=== PATIENT | female | born 1940 | race Caucasian/White ===

== ENCOUNTER 2023-07-31 06:32 | Inpatient (IN) ==
--- NOTE | 2023-07-31 07:01 | Emergency Department Note ---
Impression & Plan CHF (congestive heart failure), Abdominal pain, Nausea & vomiting, Elevated troponin ED Provider Note ED Provider Note NAME: CINDY HARTLEY AGE:83 SEX: Female : 1940 ARRIVES VIA: EMS INFORMANT: Patient ED PROVIDER(s): Jerri Corcoran DO CHIEF COMPLAINT: Nausea and vomiting, abdominal pain HPI: This is an 83-year-old female who presents emergency department via EMS due to concern for nausea vomiting and abdominal pain. Patient states symptoms began early this morning. Patient states she just had 1 episode of vomiting, denies noting any blood. She states she is still persistently nauseous. She also states she has had some mild accompanying abdominal pain and does feel bloated. Patient denies any prior significant GI history, and has had a prior abdominal hysterectomy. She denies fevers but states she is chronically cold. She denies any recent change in medication or diet. No difficulty urinating. She denies any accompanying URI symptoms. PAST MEDICAL HISTORY:See Below PAST SURGICAL HISTORY:See Below FAMILY HISTORY:See Below SOCIAL HISTORY:See Below HOME MEDICATIONS:See Below ALLERGIES:See Below VITALS:See Below PHYSICAL EXAMINATION: GENERAL: alert, unwell appearing, well nourished, no distress, non-toxic EYE EXAM: normal conjunctiva, PERRL and EOM's grossly intact OROPHARYNX: no exudate, no erythema, lips, buccal mucosa, and tongue normal and mucous membranes are dry NECK: supple, no nuchal rigidity, no adenopathy, non-tender LUNGS: Clear to auscultation. Normal chest wall mechanics, no w/r/r HEART: no murmurs, S1 normal and S2 normal ABDOMEN: abdomen soft, non-tender, normo-active bowel sounds, no masses, no rebound or guarding. SKIN: no rashes, petechiae, orbruising UPPER EXTREMITIES: upper extremities are grossly normal. FROM, nml pulses b/l. LOWER EXTREMITIES: No pitting edema. FROM, nml pulses b/l. NEURO EXAM: Normal sensorium, cranial nerves II-XII grossly intact, normal speech, no facial droop,nogross weakness of arms, no gross weakness of legs. Gross sensation intact. No ataxia. Vital Signs: reviewed and remarkable Differential Diagnosis: Viral syndrome, perforation, GI bleed, ACS, dissection, colitis, bowel obstruction, pneumonia, medication ADR, dehydration, JOSELITO, as well as others were considered MEDICAL DECISION MAKING: This is an 83-year-old female who presents emergency room due to nausea vomiting and abdominal pain. Patient was afebrile vital signs stable, she appeared dehydrated clinically. Labs are drawn and sent, IV established, EKG and chest x-ray are and KUB performed at bedside and interpreted by me, and she was monitored on telemetry. Due to reported vomiting and clinical appearance of dehydration she was given IV fluids. Patient noted to have an elevated troponin although denied chest pain or shortness of breath. No acute EKG changes noted. Due to concern given history of atrial fibrillation, a BNP was added and a repeat troponin rechecked. BNP greater than 1200 and repeat troponin higher. All results discussed with patient and additionally with who presented to bedside. They state their records are through [facility]. We did try to obtain records to be able to compare and better understand patient's recent history as detailed or not known by the patient or her . This was unsuccessful. Patient given Lasix 20 mg IV here. Case discussed with on-call [facility] hospitalist for additional evaluation and management. Consultation(s): 1315: Discussed with Dr. Narvaez, [place] hospitalist team for additional evaluation and mgmt. ER Treatment Provided: See below 0945: I updated patient and who now presents to bedside on results thus far. Patient states she is feeling slightly improved. He states her pacemaker was placed back in April, and she is due to have a recheck in August. He states patient accidentally took a drink of his spit bottle from his chewing tobacco this morning. He feels that is likely what made her ill. Diagnostics Interpreted By Me: -ECG: Paced at 89, rightward axis, prolonged intervals, nonspecific ST/T wave changes, low voltage -Cardiac Monitoring: An order was placed for continuous cardiac monitoring. The monitor shows a rate of 70 with paced rhythm. -Laboratory studies: As stated above and show below. -Imaging studies: X-ray Chest: A single view study of the chest was reviewed and was negative for focal infiltrate, effusion, or wide mediastinum. Patient with pacemaker noted, cardiomegaly, and appearance of increased interstitial markings bilaterally suggestive of pulmonary edema. Triage Nursing Note Reviewed Prior/Outside Records Reviewed Past Med/Surg History Problem List (Updated 07/31/23 @ 14:39 by Jerri S. Pheasant, DO) Elevated troponin (Acute) CHF (congestive heart failure) (Acute) Nausea & vomiting (Acute) Abdominal pain (Acute) Social History Smoking Status: Never smoker Preferred Language: Liberian Feels Safe at Home: Yes Allergies Allergies Allergy/AdvReac Type Severity Reaction Status Date / Time bacitracin Allergy Intermediate Rash Unverified 07/31/23 08:16 [From Neosporin ([id number])] neomycin Allergy Intermediate Rash Unverified 07/31/23 08:16 [From Neosporin ([id number])] polymyxin B Allergy Intermediate Rash Unverified 07/31/23 08:16 [From Neosporin ([id number])] [id number] Allergy Unknown Unknown Uncoded 07/31/23 08:16 Home Meds Home Medications Medication Instructions Recorded Confirmed albuterol sulfate 90 mcg/actuation 2 puff inhalation Q6H PRN 07/31/23 07/31/23 aerosol inhaler SOB/Wheezing apixaban 2.5 mg tablet (Eliquis) 2.5 mg PO BID 07/31/23 07/31/23 atorvastatin 10 mg tablet 10 mg PO DAILY 07/31/23 07/31/23 azelastine 137 mcg (0.1 %) nasal 1 spray intranasal BID 07/31/23 07/31/23 spray aerosol buspirone 5 mg tablet 5 mg PO BID 07/31/23 07/31/23 ergocalciferol (vitamin D2) 1,250 50,000 unit PO MONTHLY 07/31/23 07/31/23 mcg (50,000 unit) capsule furosemide 20 mg tablet 20 mg PO QAM 07/31/23 07/31/23 omeprazole 20 mg capsule,delayed 20 mg PO DAILY 07/31/23 07/31/23 release potassium chloride 10 mEq 30 meq PO DAILY 07/31/23 07/31/23 capsule,extended release sotalol 80 mg tablet 40 mg PO BID 07/31/23 07/31/23 Results & Data (ED) Vital Signs Vital Signs - 24 hr 07/31/23 06:36 07/31/23 07:42 07/31/23 09:06 Temperature 36.8 C Temperature Source Oral Pulse Rate 70 70 Pulse Rate [Apical] 70 Respiratory Rate 20 18 Respiratory Effort / Characteristics Non-Labored Spontaneous Respiratory Depth Normal Respiratory Pattern Regular Blood Pressure 114/63 Blood Pressure [Right Arm] 125/80 Blood Pressure Mean 80 Blood Pressure Mean [Right Arm] 95 Pulse Oximetry 97 98 Oxygen Delivery Method Room Air Room Air Sepsis Recent Fever Within 48 Hours No Sepsis New/Unexplained Change in Mental Status N/A Sepsis Action Taken by Nursing No Action Required 07/31/23 11:00 07/31/23 11:56 07/31/23 13:00 Temperature Temperature Source Pulse Rate 70 Pulse Rate [Apical] 72 70 Respiratory Rate 18 18 Respiratory Effort / Characteristics Respiratory Depth Respiratory Pattern Blood Pressure Blood Pressure [Right Arm] 135/80 121/75 Blood Pressure Mean Blood Pressure Mean [Right Arm] 98 90 Pulse Oximetry 96 96 Oxygen Delivery Method Room Air Room Air Sepsis Recent Fever Within 48 Hours Sepsis New/Unexplained Change in Mental Status Sepsis Action Taken by Nursing Laboratory Data 07/31/23 07:50 07/31/23 07:50 Lab Results 07/31/23 07/31/23 07/31/23 Range/Units 07:50 11:41 Unknown WBC 3.76 L (4.8-10.8) K/ul RBC 2.92 L (4.20-5.40) M/uL Hgb 9.8 L (12.0-16.0) g/dl Hct 30.4 L (37.0-47.0) % MCV 104.1 H (80.0-100.0) fL MCH 33.6 (25.0-34.0) pg MCHC 32.2 (32.0-36.0) g/dL RDW Std Deviation 56.1 H (36.4-46.3) fL RDW Coeff of Lorene 14.8 H (11.5-14.5) % Plt Count 148 (130-400) K/uL MPV 9.2 L (9.4-12.4) fL Immature Gran % (Auto) 0.3 % Neut % (Auto) 58.2 % Lymph % (Auto) 36.2 % [place] % (Auto) 4.0 % Eos % (Auto) 0.8 % Baso % (Auto) 0.5 % Neut # (Auto) 2.19 (1.40-6.50) K/uL Lymph # (Auto) 1.36 (1.20-3.40) K/uL [place] # (Auto) 0.15 (0.11-0.59) K/uL Eos # (Auto) 0.03 (0.00-0.50) K/uL Baso # (Auto) 0.02 (0.00-0.20) K/uL Immature Gran # (Auto) 0.01 (0.01-0.20) K/uL Sodium 141 (136-145) mmol/L Potassium 4.4 (3.5-5.1) mmol/L Chloride 109 H (98-107) mmol/L Carbon Dioxide 25 (21-32) mmol/L Anion Gap 7 (3-11) BUN 53 H (6-23) mg/dl Creatinine 0.99 (0.6-1.2) mg/dl Est Cr Clr Drug Dosing Not Reportable Est GFR ( Amer) 60.2 ml/min Est GFR (Non-Af Amer) 52.0 ml/min BUN/Creatinine Ratio 53.5 H (10-20) Glucose 153 H (70-99(Fasting)) mg/dl Calcium 8.9 (8.6-10.3) mg/dl Magnesium 2.1 (1.7-2.4) mg/dl Iron 56 (35-150) mcg/dl Unsaturated IBC 347 (155-355) mcg/dl Total Bilirubin 0.9 (0.2-1.0) mg/dl AST 14 (13-39) U/L ALT 11 (7-52) U/L Alkaline Phosphatase 67 (34-104) U/L Troponin I High Sens 60.9 H* 62.1 H* (0-14) pg/ml B-Natriuretic Peptide 1285 H (0-100) pg/ml Total Protein 5.7 L (6.0-8.3) gm/dl Albumin 3.8 (3.4-5.0) gm/dl Globulin 1.9 L (2.5-4.0) gm/dl Albumin/Globulin Ratio 2.0 (0.9-2) Lipase 18 (11-82) U/L TSH 3.760 (0.300-4.500) uIu/ml Urine Color Yellow Urine Appearance Clear (Clear) Urine pH 5.5 (4.5-7.5) Ur Specific [place] 1.019 (1.000-1.030) Urine Protein 1+ H (Negative) Urine Glucose (UA) Negative (Negative) Urine Ketones Negative (Negative) Urine Blood Negative (Negative) Urine Nitrite Negative (Negative) Urine Bilirubin Negative (Negative) Urine Urobilinogen Negative (Negative) Ur Leukocyte Esterase Trace H (Negative) Urine WBC (Auto) 0-5 (0-5) /hpf Urine RBC (Auto) 0-2 (0-2) /hpf U Hyaline Cast (Auto) 0-2 (0-2) /lpf U Epithel Cells (Auto) 0-2 (0-2) /hpf Urine Bacteria (Auto) 3+ H (None Seen) Administered Medications Sodium Chloride (Nss) 1,000 mls @ 250 mls/hr IV .Q4H DWAIN Stop: 08/30/23 06:59 Last Admin: 07/31/23 13:29 Dose: 250 mls/hr Documented By: Infusion: 07/31/23 11:41 Dose: Infused Documented By: Admin: 07/31/23 07:41 Dose: 250 mls/hr Documented By: VANE Discontinued Medications Furosemide (Furosemide Inj 20 Mg/2 Ml Vial) 20 mg IV ONE ONE Stop: 07/31/23 13:19 Last Admin: 07/31/23 13:33 Dose: 20 mg Documented By: VANE Famotidine (Pepcid 20mg Iv Push) 20 mg in 5 mls @ 2.5 mls/min IV NOW STA Stop: 07/31/23 07:21 Last Admin: 07/31/23 07:41 Dose: 2.5 mls/min Documented By: VANE Ondansetron HCl (Ondansetron Inj 2 Mg/Ml 2 Ml Vial) 4 mg IV NOW STA Stop: 07/31/23 07:21 Last Admin: 07/31/23 07:41 Dose: 4 mg Documented By: VANE Imaging Data Radiologist's Impression: KUB X-Ray 07/31/23 06:58 KUB HISTORY: n/v, abd pain COMPARISON: None. FINDINGS: The bowel gas pattern is unremarkable. There are no dilated loops of small bowel to suggest an obstruction. No renal calculi. No ureteral calculi. Calcifications in the deep pelvis likely represent phleboliths. Postoperative changes within the lumbar spine. The heart is enlarged. Pacemaker wires are noted. No pneumoperitoneum or pneumatosis. Mild fecal retention. IMPRESSION: Nonobstructive bowel gas pattern. ACT 112: Negative or not required by law. Electronically signed by: Mike Pandey M.D. 07/31/2023 10:26 AM Chest X-Ray 07/31/23 09:56 XR chest 1V not portable HISTORY: VOMITING COMPARISON: None. FINDINGS: No pneumothorax. No pleural effusions. The heart is enlarged. There is a left-sided pacemaker. Calcifications within the aortic knob. There is mild central pulmonary vascular congestion without overt edema. No focal lung consolidations to suggest a pneumonia. IMPRESSION: Cardiomegaly with mild congestive change. ACT 112: Negative or not required by law. Electronically signed by: Mike Pandey M.D. 07/31/2023 10:25 AM Discharge Plan Visit Data Chief Complaint: Nausea Stated Complaint: N/V, SOB ED Provider: Jerri Corcoran Discharge Problem: CHF (congestive heart failure), Abdominal pain, Nausea & vomiting, Elevated troponin Forms Stand Alone Forms: [facility] [employer] Prescriptions Prescriptions: No Action buspirone 5 mg tablet 5 mg PO BID potassium chloride 10 mEq capsule, extended release 30 meq PO DAILY atorvastatin 10 mg tablet 10 mg PO DAILY sotalol 80 mg tablet 40 mg PO BID omeprazole 20 mg capsule,delayed release(DR/EC) 20 mg PO DAILY furosemide 20 mg tablet 20 mg PO QAM ergocalciferol (vitamin D2) 1,250 mcg (50,000 unit) capsule 50,000 unit PO MONTHLY azelastine 137 mcg (0.1 %) aerosol,spray 1 spray INTRANASAL BID albuterol sulfate 90 mcg/actuation HFA aerosol inhaler 2 puff INHALATION Q6H PRN (Reason: SOB/Wheezing) Eliquis 2.5 mg tablet 2.5 mg PO BID Referrals Referrals: Satya Abdullahi M.D. [Primary Care Provider] -
[2023-07-31] MEDS: SODIUM CHLORIDE 0.9% 1,000 ML IV SCH (07:41)
[2023-07-31] MEDS: FAMOTIDINE 20MG IV PUSH 20 MG/5 ML SYR IV STA (07:41)
[2023-07-31] MEDS: ONDANSETRON INJ 2 MG/ML 2 ML VIAL IV STA (07:41)
[2023-07-31 08:23] LABS: Basophils # (auto) 0.02 K/uL (0.00-0.20); Basophils % (auto) 0.5 %; Eosinophils # (auto) 0.03 K/uL (0.00-0.50); Eosinophils % (auto) 0.8 %; Hematocrit (blood only) 30.4 % (37.0-47.0); Hemoglobin 9.8 g/dl (12.0-16.0); Immature Granulocytes # (auto) 0.01 K/uL (0.01-0.20); Immature Granulocytes % (auto) 0.3 %; Lymphocytes # (auto) 1.36 K/uL (1.20-3.40); Lymphocytes % (auto) 36.2 %; Mean Corpuscular Hemoglobin 33.6 pg (25.0-34.0); Mean Corpuscular Hgb Conc 32.2 g/dL (32.0-36.0); Mean Corpuscular Volume 104.1 fL (80.0-100.0); Mean Platelet Volume 9.2 fL (9.4-12.4); Monocytes # (auto) 0.15 K/uL (0.11-0.59); Neutrophils # (auto) 2.19 K/uL (1.40-6.50); Neutrophils % (auto) 58.2 %; Platelet Count 148 K/uL (130-400); RDW Coefficient of Variation 14.8 % (11.5-14.5); RDW Standard Deviation 56.1 fL (36.4-46.3); Red Blood Count 2.92 M/uL (4.20-5.40); White Blood Count 3.76 K/ul (4.8-10.8)
[2023-07-31 08:27] LABS: Albumin Level 3.8 gm/dl (3.4-5.0); Anion Gap 7 (3-11); Bilirubin,Total 0.9 mg/dl (0.2-1.0); Calcium 8.9 mg/dl (8.6-10.3); Carbon Dioxide 25 mmol/L (21-32); Chloride 109 mmol/L (98-107); Magnesium 2.1 mg/dl (1.7-2.4); Potassium 4.4 mmol/L (3.5-5.1); Sodium 141 mmol/L (136-145)
[2023-07-31 08:33] LABS: Alanine Aminotransferase 11 U/L (7-52); Alkaline Phosphatase 67 U/L (34-104); Aspartate Aminotransferase 14 U/L (13-39); BUN Creatinine Ratio 53.5 (10-20); Blood Urea Nitrogen 53 mg/dl (6-23); Est GFR (African American) 60.2 ml/min; Globulin 1.9 gm/dl (2.5-4.0); Glucose 153 mg/dl (70-99(Fasting)); Lipase 18 U/L (11-82); Total Protein 5.7 gm/dl (6.0-8.3)
[2023-07-31 09:02] LABS: Troponin I High Sensitivity 60.9 pg/ml (0-14)
[2023-07-31 09:03] LABS: Appearance Urine Clear (Clear); Bacteria Urine Automated 3+ (None Seen); Bilirubin Urine Negative (Negative); Blood Urine Negative (Negative); Color Urine Yellow; Epithelial Cell Urine Auto 0-2 /hpf (0-2); Glucose Urine UA Negative (Negative); Ketones Urine Negative (Negative); Leukocyte Esterase Urine Trace (Negative); Nitrite Urine Negative (Negative); Protein Urine 1+ (Negative); Specific Gravity Urine 1.019 (1.000-1.030); Urobilinogen Urine Negative (Negative); WBC Urine Automated 0-5 /hpf (0-5); pH Urine 5.5 (4.5-7.5)
[2023-07-31 09:12] LABS: Cast Urine Automated 0-2 /lpf (0-2)
[2023-07-31 09:13] LABS: RBC Urine Automated 0-2 /hpf (0-2)
--- NOTE | 2023-07-31 10:27 | XRay Report ---
KUB HISTORY: n/v, abd pain COMPARISON: None. FINDINGS: The bowel gas pattern is unremarkable. There are no dilated loops of small bowel to suggest an obstruction. No renal calculi. No ureteral calculi. Calcifications in the deep pelvis likely rep resent phleboliths. Postoperative changes within the lumbar spine. The heart is enlarged. Pacemaker w ires are noted. No pneumoperitoneum or pneumatosis. Mild fecal retention. IMPRESSION: Nonobstructive bowel gas pattern. ACT 112: Negative or not required by law. Electronically signed by: Mike Pandey M.D. 07/31/2023 10:26 AM
--- NOTE | 2023-07-31 10:27 | XRay Report ---
XR chest 1V not portable HISTORY: VOMITING COMPARISON: None. FINDINGS: No pneumothorax. No pleural effusions. The heart is enlarged. There is a left-sided pacemak er. Calcifications within the aortic knob. There is mild central pulmonary vascular congestion withou t overt edema. No focal lung consolidations to suggest a pneumonia. IMPRESSION: Cardiomegaly with mild congestive change. ACT 112: Negative or not required by law. Electronically signed by: Mike Pandey M.D. 07/31/2023 10:25 AM
[2023-07-31 12:44] LABS: Troponin I High Sensitivity 62.1 pg/ml (0-14)
[2023-07-31] MEDS: FUROSEMIDE INJ 20 MG/2 ML VIAL IV ONE (13:33)
[2023-07-31] MEDS ORDERED: ALBUTEROL HFA 8 GM INHALER INH PRN (13:44)
[2023-07-31] MEDS ORDERED: ONDANSETRON INJ 2 MG/ML 2 ML VIAL IV PRN (13:45)
[2023-07-31] MEDS ORDERED: ALUMINUM/MAGNESIUM SUSP 30 ML UDC PO PRN (13:45)
--- NOTE | 2023-07-31 14:47 | History & Physical Report ---
Date of Service July 31, 2023 Assessment & Plan (1) CHF (congestive heart failure): Plan: Patient presents with increasing shortness of breath lower extremities edema, elevated BNP, chest x-ray consistent with vascular congestion, prior history of CHF preserved ejection fraction, chronically on Lasix 20 mg daily Will increase her dose to 20 mg IV twice a day Repeat echo Consult electroencephalograph technologist (2) Atrial fibrillation: Plan: History of pacemaker, currently paced, on sotalol, Eliquis, monitor on telemetry (3) Anemia: Plan: Hemoglobin 9.8, patient reports significant weight loss, no bloody or black stools Obtain iron study B12 Folate Monitor CBC (4) Elevated troponin: Plan: Probably related to congestive heart failure, patient denies chest pain Will obtain another troponin Echocardiogram Cardiology consulted (5) CKD (chronic kidney disease) stage 3, GFR 30-59 ml/min: Plan: BUN is elevated up to 53, creatinine 0.99 Monitor BMP (6) Acquired lymphedema: Plan: Chronic lymphedema Patient reports worsening of lymphedema Recommend elastic stockings Legs elevation (7) DM type 2 (diabetes mellitus, type 2): Plan: Blood glucose slightly elevated Will start insulin sliding scale (8) Pacemaker: Plan: As per pacemaker needs to be interrogated I will consult electroencephalograph technologist History of Present Illness Chief Complaint: Nausea ,vomiting Primary Care Provider: Satya Abdullahi This is a 83-year-old female with past medical history significant for hypertension CKD stage III, diabetes mellitus type 2, GERD, osteoarthritis, lymphedema, atrial fibrillation status post pacemaker, she is chronically on Eliquis, recent history of pericardial effusion she was treated with colchicine which is discontinued. Patient travels between [place] and [place], cardiac care provided at [facility] , had a prolonged admission in [place], due to to CHF atrial fibrillation, pacemaker placed in April 2023, she was treated for CHF, she is currently on sotalol and Eliquis, furosemide , her recent echo her EF is more than 75%, moderate concentric LVH, mild aortic stenosis, mild to moderate tricuspid regurgitation. Today patient came to the hospital due to to nausea vomiting and abdominal pain, her chews tobacco and speeds in booster container, she started to blister and drank it, became nauseous afterward. In the ER she is no longer nauseous, after she received IV Zofran, she was noticed to have an elevated BNP, pulmonary congestion on the chest x- ray, she reports increased swelling of the lower extremities shortness of breath, denies chest pain. Patient reports losing over 35 pounds, but did not have a recent endoscopy or colonoscopy. Does not have a good appetite, denies seeing any bloody or black stools, she is anemic, reports feeling cold all the time. Allergies Allergy/AdvReac Type Severity Reaction Status Date / Time bacitracin Allergy Intermediate Rash Unverified 07/31/23 08:16 [From Neosporin ([id number])] neomycin Allergy Intermediate Rash Unverified 07/31/23 08:16 [From Neosporin ([id number])] polymyxin B Allergy Intermediate Rash Unverified 07/31/23 08:16 [From Neosporin ([id number])] [id number] Allergy Unknown Unknown Uncoded 07/31/23 08:16 Home Medications Medication Instructions Recorded Confirmed Type albuterol sulfate 90 mcg/actuation 2 puff inhalation Q6H PRN 07/31/23 07/31/23 History aerosol inhaler SOB/Wheezing apixaban 2.5 mg tablet (Eliquis) 2.5 mg PO BID 07/31/23 07/31/23 History atorvastatin 10 mg tablet 10 mg PO DAILY 07/31/23 07/31/23 History azelastine 137 mcg (0.1 %) nasal 1 spray intranasal BID 07/31/23 07/31/23 History spray aerosol buspirone 5 mg tablet 5 mg PO BID 07/31/23 07/31/23 History ergocalciferol (vitamin D2) 1,250 50,000 unit PO MONTHLY 07/31/23 07/31/23 History mcg (50,000 unit) capsule furosemide 20 mg tablet 20 mg PO QAM 07/31/23 07/31/23 History omeprazole 20 mg capsule,delayed 20 mg PO DAILY 07/31/23 07/31/23 History release potassium chloride 10 mEq 30 meq PO DAILY 07/31/23 07/31/23 History capsule,extended release sotalol 80 mg tablet 40 mg PO BID 07/31/23 07/31/23 History Past Med/Surg History Problem List (Updated 07/31/23 @ 14:44 by Re Narvaez MD) Pacemaker DM type 2 (diabetes mellitus, type 2) Acquired lymphedema Atrial fibrillation Anemia CKD (chronic kidney disease) stage 3, GFR 30-59 ml/min Elevated troponin (Acute) CHF (congestive heart failure) (Acute) Nausea & vomiting (Acute) Abdominal pain (Acute) Social History Smoking Status: Never smoker Preferred Language: Vietnamese Feels Safe at Home: Yes Review of Systems Review of Systems: All systems reviewed & are unremarkable except as noted in HPI & below Physical Exam Physical Exam: GENERAL: alert, unwell appearing, well nourished, no distress, non-toxic EYE EXAM: normal conjunctiva, PERRL and EOM's grossly intact OROPHARYNX: no exudate, no erythema, lips, buccal mucosa, and tongue normal and mucous membranes are dry NECK: supple, no nuchal rigidity, no adenopathy, non-tender LUNGS: Clear to auscultation. Normal chest wall mechanics, no w/r/r HEART: no murmurs, S1 normal and S2 normal ABDOMEN: abdomen soft, non-tender, normo-active bowel sounds, no masses, no rebound or guarding. SKIN: no rashes, petechiae, orbruising UPPER EXTREMITIES: upper extremities are grossly normal. FROM, nml pulses b/l. LOWER EXTREMITIES: No pitting edema. FROM, nml pulses b/l. NEURO EXAM: Normal sensorium, cranial nerves II-XII grossly intact, normal speech, no facial droop,nogross weakness of arms, no gross weakness of legs. Gross sensation intact. No ataxia. Results & Data Results & Data Vital Signs (Past 12 Hours) Vital Signs Temp Pulse Pulse Resp BP BP Pulse Ox 07/31/23 13:00 70 18 121/75 96 07/31/23 11:56 70 07/31/23 11:00 72 18 135/80 96 07/31/23 09:06 70 18 125/80 98 07/31/23 07:42 70 07/31/23 06:36 36.8 C 70 20 114/63 97 O2 Del Method 07/31/23 13:00 Room Air 07/31/23 11:56 07/31/23 11:00 Room Air 07/31/23 09:06 Room Air 07/31/23 07:42 07/31/23 06:36 Room Air Laboratory Results Abnormal lab results 07/31/23 07/31/23 07/31/23 Range/Units 07:50 11:41 Unknown WBC 3.76 L (4.8-10.8) K/ul RBC 2.92 L (4.20-5.40) M/uL Hgb 9.8 L (12.0-16.0) g/dl Hct 30.4 L (37.0-47.0) % MCV 104.1 H (80.0-100.0) fL RDW Std Deviation 56.1 H (36.4-46.3) fL RDW Coeff of [place]orene 14.8 H (11.5-14.5) % MPV 9.2 L (9.4-12.4) fL Chloride 109 H (98-107) mmol/L BUN 53 H (6-23) mg/dl BUN/Creatinine Ratio 53.5 H (10-20) Glucose 153 H (70-99(Fasting)) mg/dl Troponin I High Sens 60.9 H* 62.1 H* (0-14) pg/ml B-Natriuretic Peptide 1285 H (0-100) pg/ml Total Protein 5.7 L (6.0-8.3) gm/dl Globulin 1.9 L (2.5-4.0) gm/dl Urine Protein 1+ H (Negative) Ur Leukocyte Esterase Trace H (Negative) Urine Bacteria (Auto) 3+ H (None Seen) Diagnostic Findings KUB X-Ray 07/31/23 06:58 KUB HISTORY: n/v, abd pain COMPARISON: None. FINDINGS: The bowel gas pattern is unremarkable. There are no dilated loops of small bowel to suggest an obstruction. No renal calculi. No ureteral calculi. Calcifications in the deep pelvis likely represent phleboliths. Postoperative changes within the lumbar spine. The heart is enlarged. Pacemaker wires are noted. No pneumoperitoneum or pneumatosis. Mild fecal retention. IMPRESSION: Nonobstructive bowel gas pattern. ACT 112: Negative or not required by law. Electronically signed by: Mike Pandey M.D. 07/31/2023 10:26 AM Chest X-Ray 07/31/23 09:56 XR chest 1V not portable HISTORY: VOMITING COMPARISON: None. FINDINGS: No pneumothorax. No pleural effusions. The heart is enlarged. There is a left-sided pacemaker. Calcifications within the aortic knob. There is mild central pulmonary vascular congestion without overt edema. No focal lung consolidations to suggest a pneumonia. IMPRESSION: Cardiomegaly with mild congestive change. ACT 112: Negative or not required by law. Electronically signed by: Mike Pandey M.D. 07/31/2023 10:25 AM ECG Additional Comments: Paced rhythm PG Care Time/CCT Total # of Minutes Spent Total Time Spent with Patient: Total time spent is greater than 50% in coordination of care (as documented) at patient's floor/unit and/or counseling patient: Coding Level of Care Code 91104 INT INP/OBS CARE 3/75MIN Diagnoses CHF (congestive heart failure) I50.9 Atrial fibrillation I48.91 Anemia D64.9 Elevated troponin R79.89 CKD (chronic kidney disease) stage 3, GFR 30-59 ml/min N18.30 Acquired lymphedema I89.0 DM type 2 (diabetes mellitus, type 2) E11.9 Pacemaker Z95.0
[2023-07-31 14:52] LABS: Folate (Folic Acid),Ser orPlas 18.39 ng/ml (>5.38)
[2023-07-31] MEDS: FUROSEMIDE INJ 20 MG/2 ML VIAL IV SCH (17:19)
[2023-07-31] MEDS: ERGOCALCIFEROL 1250 MCG (50,000 UNITS) CAP PO SCH (17:19)
--- NOTE | 2023-07-31 18:12 | Cardiology Consultation ---
Date of Consultation July 31, 2023 Assessment & Plan (1) Acute HFrEF (heart failure with reduced ejection fraction): (2) Cardiomyopathy: (3) Pulmonary hypertension: (4) Paroxysmal atrial fibrillation: (5) Tachy-fermín syndrome: (6) Elevated troponin: (7) Pacemaker: (8) Aortic stenosis: (9) Pericardial effusion: Plan ASSESSMENT/PLAN: 1. Acute heart failure with reduced EF: She appears hypervolemic. NYHA class III. Did not present for this issue however. Intravenous Lasix has been arranged by hospitalist service. Try to maintain net negative fluid balance. Strict I's and O's. Low-sodium diet. Daily weights. Her urine output has not been calculated. Concern for amyloidosis based on echo images. Prentice/lambda light chains, serum immunofixation and urine immunofixation ordered. Recommend outpatient cardiac MRI. Given this concern, no Entresto/VERENICE inhibitor/ARB. Standard heart failure medications would potentially cause more harm. If found to not have amyloidosis, would consider introducing these medications. Diuresis would be the mainstay therapy. Will consider spironolactone after initial loop diuretic therapy. 2. Cardiomyopathy: Significant left ventricular hypertrophy with speckled appearance on echo, concerning for amyloidosis (also with aortic stenosis and pericardial effusion). Plan as above. ICD for primary prevention is not currently indicated but if LV systolic function further declines, would consider if deemed appropriate by EP. Hypervolemic as above. Myocardial perfusion study in 2023 unremarkable. No urgent indication for invasive ischemic evaluation. 3. Pericardial effusion: Seems to be chronic over the past several months. No suggestion of cardiac tamponade currently. Monitor for now. 4. Pulmonary hypertension: Likely due to heart failure. Diurese as above. 5. Paroxysmal atrial fibrillation: On sotalol as per her other outside providers. Currently AV paced. Continue anticoagulation for stroke risk reduction. Monitor CBC. On Eliquis 2.5 mg twice daily based on age and weight. 6. Tachybradycardia syndrome s/p dual-chamber pacemaker: Has been referred by her [facility] cue selector to [facility] graduate civil engineer, Dr. Kuhn, to manage her pacemaker. Follow-up with the EP as scheduled. 7. Elevated troponin: High-sensitivity troponin minimally elevated. Likely due to demand ischemia in the setting of heart failure. Recent negative myocardial perfusion study in 2023. She did not present with acute coronary syndrome. 8. Aortic stenosis: Nonsevere. Can be monitored as an outpatient. 9. Mildly dilated thoracic ascending aorta: Avoid strenuous lifting for which the Valsalva maneuver is required. Annual surveillance. 10. Disposition: Cardiology will continue to follow. On discharge, follow-up with primary cue selector through [facility]. She will not be enrolled in [facility] heart failure program as she follows with cardiology through [facility]. Highly complex medical issues. Thank you for allowing me to participate in the care of your patient. Please call for any other questions or concerns. Sincerely, Isra Lamas M.D. History of Present Illness Reason for Consultation: heart failure Requesting Physician: Re Narvaez MD Attending Physician: Re Narvaez MD History of Present Illness Ms. Lanier is a very pleasant 83-year-old female with a history significant for heart failure, paroxysmal atrial fibrillation, tachybradycardia syndrome s/p p acemaker ([employer]), CKD, hypertension, aortic stenosis, and dyslipidemia. Her primary cue selector is with [facility] (Bailey ZAMBRANO) in the [place] area. She was referred by her primary cue selector to EP with [facility] to manage her pacemaker (Dr. Kuhn scheduled in August 2023). She was hospitalized in [place] with heart failure and atrial fibrillation. She underwent pacemaker placement for tachybradycardia syndrome. She was placed on sotalol and Eliquis. Pericardial effusion was noted and she was placed on colchicine which has since been discontinued. She has had the following studies/procedures: 1. Echo 03/03/[address] [facility]: Hyperdynamic LV systolic function. EF > 75%. Moderate LVH. Mild to moderate TR. Mild aortic stenosis (ASAEL 1.5). RVSP 49. Small to moderate pericardial effusion. 2. CTA chest 03/03/2023: Ascending aorta 4.3 cm. No PE. Moderate to large pericardial effusion. 3. Nuclear stress 03/04/2023: Negative for ischemia. Lexiscan study. Normal LV systolic function. 4. Pacemaker placement April 2023 [place]. Reported as [employer]. 5. Echo 07/31/2023 [facility] : LVEF 35 to 40%. Global hypokinesis. Severe concentric LVH. Type III diastolic dysfunction. Septal flattening during diastole and systole suggesting RV volume and pressure overload. Severe left atrial dilation. Mildly reduced RV systolic function. Sclerotic aortic valve with possible mild aortic stenosis. Mild MR. Moderate TR. RVSP 64. Moderate pericardial effusion. She was admitted on 07/31/2023 with nausea and vomiting. Her was using one of her boost bottles for a spitune, to discard his tobacco saliva. She did not realize this and went on to drink it. She felt nauseated and vomited a few times. This prompted her ER visit. In the ER, she was felt to be in heart failure and was admitted. Her nausea and vomiting have since subsided and she feels back to baseline. She has chronic but stable dyspnea on exertion, even walking room to room. She has chronic lower extremity edema. She denies chest pain, palpitations, syncope, near syncope, melena, hematochezia, hematuria, or other bleeding. Review of systems: As above. Review of systems otherwise negative/unremarkable. Family history: Father at 52 with [place]. Social history: She denies tobacco, alcohol, or drug abuse. She has 1 biologic son. Grandchildren. Currently to her fourth . She lives with her in [place], [place]. She was unaccompanied. Allergies Allergy/AdvReac Type Severity Reaction Status Date / Time bacitracin Allergy Intermediate Rash Unverified 07/31/23 08:16 [From Neosporin ([id number])] neomycin Allergy Intermediate Rash Unverified 07/31/23 08:16 [From Neosporin ([id number])] polymyxin B Allergy Intermediate Rash Unverified 07/31/23 08:16 [From Neosporin ([id number])] [id number] Allergy Unknown Unknown Uncoded 07/31/23 08:16 Home Medications Medication Instructions Recorded Confirmed Type albuterol sulfate 90 mcg/actuation 2 puff inhalation Q6H PRN 07/31/23 07/31/23 History aerosol inhaler SOB/Wheezing apixaban 2.5 mg tablet (Eliquis) 2.5 mg PO BID 07/31/23 07/31/23 History atorvastatin 10 mg tablet 10 mg PO DAILY 07/31/23 07/31/23 History azelastine 137 mcg (0.1 %) nasal 1 spray intranasal BID 07/31/23 07/31/23 History spray aerosol buspirone 5 mg tablet 5 mg PO BID 07/31/23 07/31/23 History ergocalciferol (vitamin D2) 1,250 50,000 unit PO MONTHLY 07/31/23 07/31/23 History mcg (50,000 unit) capsule furosemide 20 mg tablet 20 mg PO QAM 07/31/23 07/31/23 History omeprazole 20 mg capsule,delayed 20 mg PO DAILY 07/31/23 07/31/23 History release potassium chloride 10 mEq 30 meq PO DAILY 07/31/23 07/31/23 History capsule,extended release sotalol 80 mg tablet 40 mg PO BID 07/31/23 07/31/23 History Problem List (Updated 07/31/23 @ 23:10 by Eddie Lamas MD) Acute HFrEF (heart failure with reduced ejection fraction) Pericardial effusion Aortic stenosis Tachy-fermín syndrome Paroxysmal atrial fibrillation Pulmonary hypertension Cardiomyopathy Acute on chronic HFrEF (heart failure with reduced ejection fraction) Pacemaker DM type 2 (diabetes mellitus, type 2) Acquired lymphedema Atrial fibrillation Anemia CKD (chronic kidney disease) stage 3, GFR 30-59 ml/min Elevated troponin (Acute) CHF (congestive heart failure) (Acute) Nausea & vomiting (Acute) Abdominal pain (Acute) Patient History Social History Smoking Status: Never smoker Hx Alcohol Use: No Hx Substance Use: No Preferred Language: British Communication Ability: Effective Insurance Operations Rep Required: Yes Beliefs That Will Affect Care: None Current Living Situation: Spouse Feels Safe at Home: Yes Assistive Devices: Denture - Upper Physical Exam Physical Exam: Gen.: No acute distress. Alert and oriented. HEENT: Anicteric sclera. Neck: Mild JVD. Normal carotid upstrokes bilaterally. Cardiac: No ventricular heave. Regular. Normal S1-S2. 2/6 systolic murmur. Pulmonary: Decreased breath sounds, but otherwise clear to auscultation bilaterally. Abdomen: Soft, nontender, nondistended, with normoactive bowel sounds. No bruits noted. Extremities: 2+ radial pulses bilaterally. 2+ posterior tibialis pulses bilaterally. 2+ left lower extremity and 1+ right lower extremity edema. No cyanosis. Psychiatric: Affect appears appropriate. Results & Data Vital Signs (Past 12 Hours) Vital Signs Temp Pulse Pulse Resp BP BP Pulse Ox 07/31/23 15:00 70 19 135/90 96 07/31/23 14:30 56 L 22 140/91 98 07/31/23 13:00 70 18 121/75 96 07/31/23 11:56 70 07/31/23 11:00 72 18 135/80 96 07/31/23 09:06 70 18 125/80 98 07/31/23 07:42 70 07/31/23 06:36 36.8 C 70 20 114/63 97 O2 Del Method 07/31/23 15:00 Room Air 07/31/23 14:30 Room Air 07/31/23 13:00 Room Air 07/31/23 11:56 07/31/23 11:00 Room Air 07/31/23 09:06 Room Air 07/31/23 07:42 07/31/23 06:36 Room Air Intake & Output 07/29/23 07/30/23 07/31/23 08/01/23 06:59 06:59 06:59 06:59 Intake Total 1325 / 1325 Balance 1325 / 1325 Weight 118 lb 2.684 oz Laboratory Results Laboratory Results - last 24 hr 07/31/23 07/31/23 07/31/23 07:50 11:41 22:24 WBC 3.76 L RBC 2.92 L Hgb 9.8 L Hct 30.4 L MCV 104.1 H MCH 33.6 MCHC 32.2 RDW Std Deviation 56.1 H RDW Coeff of Lorene 14.8 H Plt Count 148 MPV 9.2 L Immature Gran % (Auto) 0.3 Neut % (Auto) 58.2 Lymph % (Auto) 36.2 Stephens % (Auto) 4.0 Eos % (Auto) 0.8 Baso % (Auto) 0.5 Neut # (Auto) 2.19 Lymph # (Auto) 1.36 Stephens # (Auto) 0.15 Eos # (Auto) 0.03 Baso # (Auto) 0.02 Immature Gran # (Auto) 0.01 Sodium 141 Potassium 4.4 Chloride 109 H Carbon Dioxide 25 Anion Gap 7 BUN 53 H Creatinine 0.99 Est Cr Clr Drug Dosing Not Reportable Est GFR ( Amer) 60.2 Est GFR (Non-Af Amer) 52.0 BUN/Creatinine Ratio 53.5 H Glucose 153 H Calcium 8.9 Magnesium 2.1 Iron 56 Unsaturated IBC 347 Total Bilirubin 0.9 AST 14 ALT 11 Alkaline Phosphatase 67 Troponin I High Sens 60.9 H* 62.1 H* Pending B-Natriuretic Peptide 1285 H Total Protein 5.7 L Albumin 3.8 Globulin 1.9 L Albumin/Globulin Ratio 2.0 Lipase 18 Vitamin B12 268 Folate 18.39 TSH 3.760 Urine Color Urine Appearance Urine pH Ur Specific Durham Urine Protein Urine Glucose (UA) Urine Ketones Urine Blood Urine Nitrite Urine Bilirubin Urine Urobilinogen Ur Leukocyte Esterase Urine WBC (Auto) Urine RBC (Auto) U Hyaline Cast (Auto) U Epithel Cells (Auto) Urine Bacteria (Auto) 07/31/23 Unknown WBC RBC Hgb Hct MCV MCH MCHC RDW Std Deviation RDW Coeff of Lorene Plt Count MPV Immature Gran % (Auto) Neut % (Auto) Lymph % (Auto) Stephens % (Auto) Eos % (Auto) Baso % (Auto) Neut # (Auto) Lymph # (Auto) Stephens # (Auto) Eos # (Auto) Baso # (Auto) Immature Gran # (Auto) Sodium Potassium Chloride Carbon Dioxide Anion Gap BUN Creatinine Est Cr Clr Drug Dosing Est GFR ( Amer) Est GFR (Non-Af Amer) BUN/Creatinine Ratio Glucose Calcium Magnesium Iron Unsaturated IBC Total Bilirubin AST ALT Alkaline Phosphatase Troponin I High Sens B-Natriuretic Peptide Total Protein Albumin Globulin Albumin/Globulin Ratio Lipase Vitamin B12 Folate TSH Urine Color Yellow Urine Appearance Clear Urine pH 5.5 Ur Specific Durham 1.019 Urine Protein 1+ H Urine Glucose (UA) Negative Urine Ketones Negative Urine Blood Negative Urine Nitrite Negative Urine Bilirubin Negative Urine Urobilinogen Negative Ur Leukocyte Esterase Trace H Urine WBC (Auto) 0-5 Urine RBC (Auto) 0-2 U Hyaline Cast (Auto) 0-2 U Epithel Cells (Auto) 0-2 Urine Bacteria (Auto) 3+ H Diagnostic Findings ECHO 07/31/23: 1. Small left ventricular size with moderately reduced systolic function. Estimated EF 35-40%. Global hypokinesis. Severe concentric left ventricular hypertrophy. Type 3 diastolic dysfunction. Septal flattening during diastole and systole suggesting RV volume and pressure overload. Consider cardiac amyloidosis. 2. Normal right ventricular size with mildly reduced systolic function. 3. Severe left and mild right atrial dilation. 4. Sclerotic aortic valve with possible mild aortic stenosis. Doppler evaluation may underestimate aortic stenosis in the setting of reduced LV systolic function. 5. Mild mitral regurgitation. 6. Moderate tricuspid regurgitation. 7. Severe pulmonary hypertension. Estimated RVSP 64 mmHg. 8. Moderate pericardial effusion without echocardiographic evidence of tamponade physiology. Labs reviewed and notable for elevated BNP, elevated troponin, normal potassium, normal renal function, normal magnesium, normal transaminase levels, normal TSH, anemia and leukopenia. Chest x-ray 07/31/2023: Mild central pulmonary vascular congestion. Cardiomegaly. Telemetry personally reviewed: AV pacing. ECG personally reviewed from 07/31/2023: AV paced 89 bpm. Outside cardiology report reviewed from 07/08/2023 from [facility]. Outside echo from 03/03/2023 ([place]): Reported hyperdynamic LV systolic function. EF > 75%. Moderate LVH. Mild to moderate TR. Mild aortic stenosis. Moderate pulmonary hypertension. Small to moderate pericardial effusion. Outside chest CTA 03/03/2023: Dilated ascending thoracic aorta 4.3 cm. Moderate to large pericardial effusion. Myocardial perfusion study 03/04/2023: Negative for ischemia. Normal LV systolic function. Medications Administered Current Inpatient Medications Acetaminophen (Acetaminophen 325 Mg Tab) 650 mg PO Q4H PRN PRN Reason: pain/fever Stop: 08/30/23 13:44 Al Hydrox/Mg Hydrox/Simethicone (Aluminum/Magnesium Susp 30 Ml Udc) 30 ml PO Q6 H PRN PRN Reason: Dyspepsia Stop: 08/30/23 13:44 Albuterol (Albuterol Hfa 8 Gm Inhaler) 2 puffs INH Q6H PRN PRN Reason: SOB/Wheezing Stop: 08/30/23 13:43 Apixaban (Apixaban 2.5 Mg Tab) 2.5 mg PO BID DWAIN Stop: 08/30/23 20:59 Last Admin: 07/31/23 20:53 Dose: 2.5 mg Atorvastatin Calcium (Atorvastatin 10 Mg Tab) 10 mg PO DAILY DWAIN Stop: 08/31/23 08:59 Azelastine HCl (Azelastine Hcl 0.1% Nasal 200 Sprays/27,400 Mcg Btl) 1 sprays YAMILA BID DWAIN Stop: 08/30/23 20:59 Last Admin: 07/31/23 20:52 Dose: 1 sprays Buspirone HCl (Buspirone 5 Mg Tab) 5 mg PO BID DWAIN Stop: 08/30/23 20:59 Last Admin: 07/31/23 20:53 Dose: 5 mg Cyanocobalamin (Cyanocobalamin (B-12) 500 Mcg Tablet) 1,000 mcg PO QAM DWAIN Stop: 08/31/23 08:59 Ergocalciferol (Ergocalciferol 1250 Mcg (50,000 Units) Cap) 1,250 mcg PO Q30D DWAIN Stop: 08/30/23 13:44 Last Admin: 07/31/23 17:19 Dose: 1,250 mcg Furosemide (Furosemide Inj 20 Mg/2 Ml Vial) 20 mg IV [id number] DWAIN Stop: 08/30/23 16:59 Last Admin: 07/31/23 17:19 Dose: 20 mg Ondansetron HCl (Ondansetron Inj 2 Mg/Ml 2 Ml Vial) 4 mg IV Q6H PRN PRN Reason: Nausea Stop: 08/30/23 13:44 Pantoprazole Sodium (Pantoprazole 40 Mg Tab) 40 mg PO DAILY DWAIN Stop: 08/31/23 08:59 Potassium Chloride (Potassium Chloride 10 Meq Tabcr) 30 meq PO DAILY DWAIN Stop: 08/31/23 08:59 Sotalol HCl (Sotalol Hcl 80 Mg Tab) 40 mg PO BID DWAIN Stop: 08/30/23 20:59 Last Admin: 07/31/23 20:53 Dose: 40 mg PG Care Time/CCT Total # of Minutes Spent Total Time Spent with Patient: Total time spent is greater than 50% in coordination of care (as documented) at patient's floor/unit and/or counseling patient: Coding Level of Care Code 09108 INT INP/OBS CARE 3/75MIN Diagnoses Acute HFrEF (heart failure with reduced ejection fraction) I50.21 Cardiomyopathy I42.9 Pulmonary hypertension I27.20 Paroxysmal atrial fibrillation I48.0 Tachy-fermín syndrome I49.5 Elevated troponin R79.89 Pacemaker Z95.0 Aortic stenosis I35.0 Pericardial effusion I31.39
[2023-07-31] MEDS: AZELASTINE HCL 0.1% NASAL 200 SPRAYS/27,400 MCG BTL NAE SCH (20:52)
[2023-07-31] MEDS: SOTALOL HCL 80 MG TAB PO SCH (20:53)
[2023-07-31] MEDS: busPIRone 5 MG TAB PO SCH (20:53)
[2023-07-31] MEDS: APIXABAN 2.5 MG TAB PO SCH (20:53)
--- NOTE | 2023-08-01 00:26 | XCELERA ---
[id number]
[2023-08-01 06:39] LABS: Basophils # (auto) 0.02 K/uL (0.00-0.20); Basophils % (auto) 0.3 %; Eosinophils # (auto) 0.06 K/uL (0.00-0.50); Hematocrit (blood only) 33.8 % (37.0-47.0); Hemoglobin 10.9 g/dl (12.0-16.0); Immature Granulocytes # (auto) 0.01 K/uL (0.01-0.20); Immature Granulocytes % (auto) 0.2 %; Lymphocytes # (auto) 2.83 K/uL (1.20-3.40); Lymphocytes % (auto) 47.8 %; Mean Corpuscular Hemoglobin 33.9 pg (25.0-34.0); Mean Corpuscular Hgb Conc 32.2 g/dL (32.0-36.0); Mean Platelet Volume 9.7 fL (9.4-12.4); Monocytes # (auto) 0.23 K/uL (0.11-0.59); Monocytes % (auto) 3.9 %; Neutrophils # (auto) 2.77 K/uL (1.40-6.50); Neutrophils % (auto) 46.8 %; Platelet Count 151 K/uL (130-400); RDW Coefficient of Variation 14.7 % (11.5-14.5); RDW Standard Deviation 57.6 fL (36.4-46.3); Red Blood Count 3.22 M/uL (4.20-5.40); White Blood Count 5.92 K/ul (4.8-10.8)
[2023-08-01 07:12] LABS: Estimated Average Glucose 134 mg/dl; Hemoglobin A1C 6.3 % (4.5-5.6)
[2023-08-01 07:33] LABS: Creatinine Clr Calc Pharmacy 26.2 ml/min; Est GFR (African American) 53.6 ml/min; Est GFR (Non-African American) 46.3 ml/min; Magnesium 2.1 mg/dl (1.7-2.4)
--- NOTE | 2023-08-01 08:29 | Hospitalist Progress Note ---
Date of Service August 01, 2023 Assessment & Plan (1) Acute on chronic HFrEF (heart failure with reduced ejection fraction): Plan: Patient presents with increasing shortness of breath lower extremities edema, elevated BNP, chest x-ray consistent with vascular congestion, prior history of CHF preserved ejection fraction, chronically on Lasix 20 mg daily On admission, lasix increased to 20mg IV BID (I stopped IVF ordered @ 250cc/hr by ER initially concerned for n/v and dehydration after drinking husbands chew/spit cup) Consulted cardiology, Dr Lamas ECHO ordered * LVEF 35-40%, global hypokinesis. Severe concentric LVH. Type III diastolic dysfunction. Septal flattening during diastole and systole suggesting RV volume and pressure overload. Severe left atrial dilation. Mildly reduced RV systolic function. Sclerotic aortic valve with possible mild aortic stenosis. Mild MR. Moderate TR. RVSP 64. Moderate pericardial effusion. CHF - Aiming for negative fluid balance, continues on lasix 20mg IV BID for now - Monitor daily weights/I&Os - Concerns for amyloidosis based on echo images -- kappa/lambda light chains, serum immunofixation and urine immunofixation ordered and recommendations for outpatient cardiac MRI Given concerns for this, NO ENTRESTO/VERENICE/ARB and standard HF medications can potentially cause more harm. If NOT found to have amyloidosis, can consider in troducing these medications. Diuretics to be mainstay of therapy in meantime, consideration for spironolactone after initial loop diuretic therapy Weights 53.6kg--> 52kg BUN/Cr 53/0.99--> 1.09 Initially planned to change to once daily IV lasix however discussed w/ cardiology and will continue 20mg IV BID for now. Continue to monitor weights/I&Os Repeat troponin trending down as was trending up, no CP reported but NESBITT. Continue telemetry monitoring Appreciate assistance/recs from cardiology F/u repeat urine cx (2) Cardiomyopathy: Plan: Cardiomyopathy: Myocardial perfusion study in 2023 unremarkable. Significant left ventricular hypertrophy with speckled appearance on echo, concerning for amyloidosis (also with aortic stenosis and pericardial effusion). ICD for primary prevention is not currently indicated but if LV systolic function further declines, would consider if deemed appropriate by EP. Hypervolemic as above. No urgent indication for invasive ischemic evaluation at this time but continued inpatient stay (3) Paroxysmal atrial fibrillation: Plan: On sotalol as per her other outside providers. Currently AV paced. Continue anticoagulation for stroke risk reduction. On Eliquis 2.5 mg twice daily based on age and weight. Monitor cbc - hgb from 9.8--> 10.9 w/ diuresis and no bleeding reported and will monitor Elevated troponin: High-sensitivity troponin minimally elevated. Likely due to demand ischemia in the setting of heart failure. Recent negative myocardial perfusion study in 2023. She did not present with acute coronary syndrome. (4) Aortic stenosis: Plan: Nonsevere. Can be monitored as an outpatient. (5) Tachy-fermín syndrome: Plan: s/p dual-chamber pacemaker: Has been referred by her [facility] maint mechanic to [facility] senior net developer, Dr. Kuhn, to manage her pacemaker. Follow-up with the EP as scheduled. (6) Pericardial effusion: Plan: Seems to be chronic over the past several months. No suggestion of cardiac tamponade currently. Monitor for now. (7) Atrial fibrillation: Plan: History of pacemaker, currently paced, on sotalol, Eliquis keep mag/K replete Monitor on telemetry (8) Anemia: Plan: Hemoglobin 9.8, patient reports significant weight loss, no bloody or black stools improvement in hgb w/ diuresis B12 borderline, PO supplementation ordered. Folate wnl. TSH 3.76 Continue to monitor (9) Elevated troponin: Plan: Probably related to congestive heart failure, patient denies chest pain Repeat troponin 74--> 65.7, demand ischemia in setting of heart failure, also concerns for amyloid as above ECHO/cards as above Continue telemetry monitoring, EKG w/ CP ordered in place (10) CKD (chronic kidney disease) stage 3, GFR 30-59 ml/min: Plan: renal function appears stable w/ continued diuresis and will monitor 24hr urine order for above renal dose meds/avoid nephrotoxins as able BMP in AM (11) Acquired lymphedema: Plan: Chronic lymphedema, reported worsening prior to admission elevation rec'd, diuretic as above compression to be considered (12) DM type 2 (diabetes mellitus, type 2): Plan: Glu 153 on admission, no hx DMor medication use ?consideration for jardiance given CHF as above. BSG checks added and sliding scale Monitor (13) Pacemaker: Plan: cardiology consulted, Dr Kuhn to be seen in f/u for EP (14) Pulmonary hypertension: Plan: Pulmonary hypertension: Likely due to heart failure. Diurese as above. ?underlying EDUARDO, consider sleep study Mildly dilated thoracic ascending aorta: --Avoid strenuous lifting for which the Valsalva maneuver is required. Annual surveillance. (15) B12 deficiency: Plan: low normal 268, PO supplementation started Other problems - A1c 6.0, pre-DM. Will need outpt f/u. No hyperglycemia noted - BSG AC/HS added, sliding scale insulin and will monitor. ?benefit w jardiance for CHF Plan continued inpatient stay, updated at bedside Admission and Anticipated Discharge Date Admission Date: July 31, 2023 Supervising Physician Co-Signing Physician Notes The patient was not seen by me. The chart was reviewed. Case discussed with KERI Lopez. Agree with assessment and plan Subjective Eval this morning, at bedside. Have been together ~30 years. Patient reports her breathing improved from admission but feeling fatigued/whiped out today. Discussed diuretics continued but may need to decrease to once daily 20mg IV (on 20mg PO prior to admission) to prevent diuresing too quickly but will discuss w cardiology. Denies having seen cardiology this morning. Labs pending for possible underlying amyloid, urine collection on windowsill. No fever/chills, chest pain reported. She does endorse has had significant weight loss over the past year, decreased appetite. Did move her bowels this morning and reports being soft/no bleeding reported. Discussed continued inpatient stay, questions/concerns addressed at this time. Physical Exam Physical Exam: General: 83yo female, chronically ill appearing, laying in bed, at bedside, fatigued appearing Head: atraumatic, thinning hair, trachea midline, mmm Resp: even/unlabored, diminished in the bases but no obvious w/c/r, on room air CV: regular rhythm/rate, +systolic murmur, +b/l LE edema, slight wrinkling of skin, neuropathy at baseline GI: +BS,soft/NT, no significant distension MSK/Neuro: answering questions appropriately, not confused, able to follow commands generalized weakness but nonfocal Skin: mirna LL lateral leg, slight bruise/ecchymosis to medial aspect Results & Data Results & Data Vital Signs (Past 12 Hours) Vital Signs Temp Pulse Pulse Resp BP BP Pulse Ox 08/01/23 07:18 36.4 C L 71 16 112/68 93 08/01/23 07:00 79 08/01/23 03:04 36.4 C L 70 18 114/75 91 07/31/23 23:14 36.4 C L 70 18 109/67 95 07/31/23 21:55 70 O2 Del Method 08/01/23 07:18 Room Air 08/01/23 07:00 08/01/23 03:04 Room Air 07/31/23 23:14 Room Air 07/31/23 21:55 Laboratory Results 08/01/23 07/31/23 07/31/23 Range/Units 06:09 Unknown 22:24 WBC 5.92 (4.8-10.8) K/ul RBC 3.22 L (4.20-5.40) M/uL Hgb 10.9 L (12.0-16.0) g/dl Hct 33.8 L (37.0-47.0) % MCV 105.0 H (80.0-100.0) fL MCH 33.9 (25.0-34.0) pg MCHC 32.2 (32.0-36.0) g/dL RDW Std Deviation 57.6 H (36.4-46.3) fL RDW Coeff of Lorene 14.7 H (11.5-14.5) % Plt Count 151 (130-400) K/uL MPV 9.7 (9.4-12.4) fL Immature Gran % (Auto) 0.2 % Neut % (Auto) 46.8 % Lymph % (Auto) 47.8 % [place] % (Auto) 3.9 % Eos % (Auto) 1.0 % Baso % (Auto) 0.3 % Neut # (Auto) 2.77 (1.40-6.50) K/uL Lymph # (Auto) 2.83 (1.20-3.40) K/uL [place] # (Auto) 0.23 (0.11-0.59) K/uL Eos # (Auto) 0.06 (0.00-0.50) K/uL Baso # (Auto) 0.02 (0.00-0.20) K/uL Immature Gran # (Auto) 0.01 (0.01-0.20) K/uL Sodium 142 (136-145) mmol/L Potassium 4.0 (3.5-5.1) mmol/L Chloride 107 (98-107) mmol/L Carbon Dioxide 28 (21-32) mmol/L Anion Gap 7 (3-11) BUN 49 H (6-23) mg/dl Creatinine 1.09 (0.6-1.2) mg/dl Est Cr Clr Drug Dosing 26.2 Est GFR ( Amer) 53.6 ml/min Est GFR (Non-Af Amer) 46.3 ml/min BUN/Creatinine Ratio 45.0 H (10-20) Glucose 111 H (70-99(Fasting)) mg/dl Estimat Average Glucose 134 mg/dl Hemoglobin A1c 6.3 H (4.5-5.6) % Calcium 9.0 (8.6-10.3) mg/dl Magnesium 2.1 (1.7-2.4) mg/dl Iron (35-150) mcg/dl Unsaturated IBC (155-355) mcg/dl Total Bilirubin (0.2-1.0) mg/dl AST (13-39) U/L ALT (7-52) U/L Alkaline Phosphatase (34-104) U/L Troponin I High Sens 74.0 H* 64.5 H* (0-14) pg/ml B-Natriuretic Peptide (0-100) pg/ml Total Protein (6.0-8.3) gm/dl Albumin (3.4-5.0) gm/dl Globulin (2.5-4.0) gm/dl Albumin/Globulin Ratio (0.9-2) Lipase (11-82) U/L Vitamin B12 (180-914) pg/ml Folate (>5.38) ng/ml TSH (0.300-4.500) uIu/ml Urine Color Yellow Urine Appearance Clear (Clear) Urine pH 5.5 (4.5-7.5) Ur Specific [place] 1.019 (1.000-1.030) Urine Protein 1+ H (Negative) Urine Glucose (UA) Negative (Negative) Urine Ketones Negative (Negative) Urine Blood Negative (Negative) Urine Nitrite Negative (Negative) Urine Bilirubin Negative (Negative) Urine Urobilinogen Negative (Negative) Ur Leukocyte Esterase Trace H (Negative) Urine WBC (Auto) 0-5 (0-5) /hpf Urine RBC (Auto) 0-2 (0-2) /hpf U Hyaline Cast (Auto) 0-2 (0-2) /lpf U Epithel Cells (Auto) 0-2 (0-2) /hpf Urine Bacteria (Auto) 3+ H (None Seen) Serum Immunofixation Pending Tot Stanford/Lambda Ratio Pending Stanford Light Chain Anal Pending Lambda Light Chain Anal Pending 07/31/23 07/31/23 Range/Units 11:41 07:50 WBC 3.76 L (4.8-10.8) K/ul RBC 2.92 L (4.20-5.40) M/uL Hgb 9.8 L (12.0-16.0) g/dl Hct 30.4 L (37.0-47.0) % MCV 104.1 H (80.0-100.0) fL MCH 33.6 (25.0-34.0) pg MCHC 32.2 (32.0-36.0) g/dL RDW Std Deviation 56.1 H (36.4-46.3) fL RDW Coeff of Lorene 14.8 H (11.5-14.5) % Plt Count 148 (130-400) K/uL MPV 9.2 L (9.4-12.4) fL Immature Gran % (Auto) 0.3 % Neut % (Auto) 58.2 % Lymph % (Auto) 36.2 % [place] % (Auto) 4.0 % Eos % (Auto) 0.8 % Baso % (Auto) 0.5 % Neut # (Auto) 2.19 (1.40-6.50) K/uL Lymph # (Auto) 1.36 (1.20-3.40) K/uL [place] # (Auto) 0.15 (0.11-0.59) K/uL Eos # (Auto) 0.03 (0.00-0.50) K/uL Baso # (Auto) 0.02 (0.00-0.20) K/uL Immature Gran # (Auto) 0.01 (0.01-0.20) K/uL Sodium 141 (136-145) mmol/L Potassium 4.4 (3.5-5.1) mmol/L Chloride 109 H (98-107) mmol/L Carbon Dioxide 25 (21-32) mmol/L Anion Gap 7 (3-11) BUN 53 H (6-23) mg/dl Creatinine 0.99 (0.6-1.2) mg/dl Est Cr Clr Drug Dosing Not Reportable Est GFR ( Amer) 60.2 ml/min Est GFR (Non-Af Amer) 52.0 ml/min BUN/Creatinine Ratio 53.5 H (10-20) Glucose 153 H (70-99(Fasting)) mg/dl Estimat Average Glucose mg/dl Hemoglobin A1c (4.5-5.6) % Calcium 8.9 (8.6-10.3) mg/dl Magnesium 2.1 (1.7-2.4) mg/dl Iron 56 (35-150) mcg/dl Unsaturated IBC 347 (155-355) mcg/dl Total Bilirubin 0.9 (0.2-1.0) mg/dl AST 14 (13-39) U/L ALT 11 (7-52) U/L Alkaline Phosphatase 67 (34-104) U/L Troponin I High Sens 62.1 H* 60.9 H* (0-14) pg/ml B-Natriuretic Peptide 1285 H (0-100) pg/ml Total Protein 5.7 L (6.0-8.3) gm/dl Albumin 3.8 (3.4-5.0) gm/dl Globulin 1.9 L (2.5-4.0) gm/dl Albumin/Globulin Ratio 2.0 (0.9-2) Lipase 18 (11-82) U/L Vitamin B12 268 (180-914) pg/ml Folate 18.39 (>5.38) ng/ml TSH 3.760 (0.300-4.500) uIu/ml Urine Color Urine Appearance (Clear) Urine pH (4.5-7.5) Ur Specific [place] (1.000-1.030) Urine Protein (Negative) Urine Glucose (UA) (Negative) Urine Ketones (Negative) Urine Blood (Negative) Urine Nitrite (Negative) Urine Bilirubin (Negative) Urine Urobilinogen (Negative) Ur Leukocyte Esterase (Negative) Urine WBC (Auto) (0-5) /hpf Urine RBC (Auto) (0-2) /hpf U Hyaline Cast (Auto) (0-2) /lpf U Epithel Cells (Auto) (0-2) /hpf Urine Bacteria (Auto) (None Seen) Serum Immunofixation Tot Stanford/Lambda Ratio Stanford Light Chain Anal Lambda Light Chain Anal Diagnostic Findings KUB X-Ray 07/31/23 06:58 KUB HISTORY: n/v, abd pain COMPARISON: None. FINDINGS: The bowel gas pattern is unremarkable. There are no dilated loops of small bowel to suggest an obstruction. No renal calculi. No ureteral calculi. Calcifications in the deep pelvis likely represent phleboliths. Postoperative changes within the lumbar spine. The heart is enlarged. Pacemaker wires are noted. No pneumoperitoneum or pneumatosis. Mild fecal retention. IMPRESSION: Nonobstructive bowel gas pattern. ACT 112: Negative or not required by law. Electronically signed by: Mike Pandey M.D. 07/31/2023 10:26 AM Chest X-Ray 07/31/23 09:56 XR chest 1V not portable HISTORY: VOMITING COMPARISON: None. FINDINGS: No pneumothorax. No pleural effusions. The heart is enlarged. There is a left-sided pacemaker. Calcifications within the aortic knob. There is mild central pulmonary vascular congestion without overt edema. No focal lung consolidations to suggest a pneumonia. IMPRESSION: Cardiomegaly with mild congestive change. ACT 112: Negative or not required by law. Electronically signed by: Mike Pandey M.D. 07/31/2023 10:25 AM PG Care Time/CCT Total # of Minutes Spent Total Time Spent with Patient: Total time spent is greater than 50% in coordination of care (as documented) at patient's floor/unit and/or counseling patient: Coding Level of Care Code 50202 SUB INP/OBS CARE 3/50MIN Diagnoses Acute on chronic HFrEF (heart failure with reduced ejection fraction) I50.23 Cardiomyopathy I42.9 Paroxysmal atrial fibrillation I48.0 Aortic stenosis I35.0 Tachy-fermín syndrome I49.5 Pericardial effusion I31.39 Atrial fibrillation I48.91 Anemia D64.9 Elevated troponin R79.89 CKD (chronic kidney disease) stage 3, GFR 30-59 ml/min N18.30 Acquired lymphedema I89.0 DM type 2 (diabetes mellitus, type 2) E11.9 Pacemaker Z95.0 Pulmonary hypertension I27.20 B12 deficiency E53.8
[2023-08-01] MEDS: POTASSIUM CHLORIDE 10 MEQ TABCR PO SCH (09:56)
[2023-08-01] MEDS: ATORVASTATIN 10 MG TAB PO SCH (09:56)
[2023-08-01] MEDS: PANTOprazole 40 MG TAB PO SCH (09:56)
[2023-08-01] MEDS: CYANOCOBALAMIN (B-12) 500 MCG TABLET PO SCH (09:57)
--- NOTE | 2023-08-01 11:04 | Cardiology Progress Note ---
Date of Service August 01, 2023 Assessment & Plan (1) Acute HFrEF (heart failure with reduced ejection fraction): (2) Cardiomyopathy: (3) Pulmonary hypertension: (4) Paroxysmal atrial fibrillation: (5) Tachy-fermín syndrome: (6) Elevated troponin: (7) Pacemaker: (8) Aortic stenosis: (9) Pericardial effusion: Plan ASSESSMENT/PLAN: 1. Acute heart failure with reduced EF: Remains hypervolemic. NYHA class III. Recommend net negative fluid balance of 1 to 2 L daily if able/tolerated. Strict I's and O's. Low-sodium diet. Daily weights. Urine output was not calculated yesterday. Hopefully more accurate fluid balance going forward. Concern for amyloidosis based on echo images. Ryeg[place]/lambda light chains, serum immunofixation and urine immunofixation pending. Recommend outpatient cardiac MRI if able. Given this concern, no Entresto/VERENICE inhibitor/ARB. Standard heart failure medications would potentially cause more harm. If found to not have amyloidosis, would consider introducing these medications. Diuresis would be the mainstay therapy. Will consider spironolactone after initial loop diuretic therapy. 2. Cardiomyopathy: Significant left ventricular hypertrophy with speckled appearance on echo, concerning for amyloidosis (also with aortic stenosis and pericardial effusion). Plan as above. ICD for primary prevention is not currently indicated but if LV systolic function further declines, would consider if deemed appropriate by EP. Hypervolemic as above. Myocardial perfusion study in 2023 unremarkable. No urgent indication for invasive ischemic evaluation. 3. Pericardial effusion: Seems to be chronic over the past several months. No suggestion of cardiac tamponade currently. Monitor for now. 4. Pulmonary hypertension: Likely due to heart failure. Diurese as above. 5. Paroxysmal atrial fibrillation: On sotalol as per her other outside providers. Given heart failure with reduced EF and significant LVH, sotalol is not optimal choice for antiarrhythmic therapy. Will discontinue sotalol for now. Atrial fibrillation was reportedly difficult to control during her [place] hospitalization in 2023. After some washout, could consider amiodarone if needed. Currently AV paced. Continue anticoagulation for stroke risk redu ction. Monitor CBC. On Eliquis 2.5 mg twice daily based on age and weight. 6. Tachybradycardia syndrome s/p dual-chamber pacemaker: Has been referred by her [facility] derrick hand to [facility] manufacturing coordinator, Dr. Kuhn, to manage her pacemaker. Follow-up with the EP as scheduled. 7. Elevated troponin: High-sensitivity troponin minimally elevated. Likely due to demand ischemia in the setting of heart failure. Recent negative myocardial perfusion study in 2023. She did not present with acute coronary syndrome. 8. Aortic stenosis: Nonsevere. Can be monitored as an outpatient. 9. Mildly dilated thoracic ascending aorta: Avoid strenuous lifting for which the Valsalva maneuver is required. Annual surveillance. 10. Disposition: Cardiology will continue to follow. On discharge, follow-up with primary derrick hand through [facility]. She will not be enrolled in [facility] heart failure program as she follows with cardiology through [facility]. That her primary derrick hand cannot manage her pacemaker and they have an appointment to establish care with Dr. Khun for device management. Highly complex medical issues. Admission and Anticipated Discharge Date Admission Date: July 31, 2023 Subjective Patient seen this morning. She denies shortness of breath while in bed. She denies chest pain, syncope, near syncope, palpitations. No further nausea or vomiting. Her was present at the bedside. He states that she has been declining in general with shortness of breath prior to this hospitalization. Physical Exam Physical Exam: Gen.: No acute distress. Alert. HEENT: Anicteric sclera. Neck: Mild JVD. Hepatojugular reflux. Cardiac: No ventricular heave. Regular. Normal S1-S2. 2/6 systolic murmur. Pulmonary: Decreased breath sounds, but otherwise clear to auscultation bilaterally. Abdomen: Soft, nontender, nondistended, with normoactive bowel sounds. No bruits noted. Extremities: 2+ radial pulses bilaterally. 2+ posterior tibialis pulses bilatera lly. 2+ left lower extremity and 1+ right lower extremity edema. No cyanosis. Psychiatric: Affect appears appropriate. Results & Data Vital Signs (Past 12 Hours) Vital Signs Temp Pulse Pulse Resp BP BP Pulse Ox 08/01/23 07:18 36.4 C L 71 16 112/68 93 08/01/23 07:00 79 08/01/23 03:04 36.4 C L 70 18 114/75 91 07/31/23 23:14 36.4 C L 70 18 109/67 95 O2 Del Method 08/01/23 07:18 Room Air 08/01/23 07:00 08/01/23 03:04 Room Air 07/31/23 23:14 Room Air Intake & Output 07/30/23 07/31/23 08/01/23 08/02/23 06:59 06:59 06:59 06:59 Intake Total 1545 / 1545 Output Total 900 / 900 Balance 645 / 645 Weight 114 lb 10.246 oz 114 lb 10.246 oz Laboratory Results Laboratory Results - last 24 hr 07/31/23 07/31/23 08/01/23 11:41 22:24 06:09 WBC 5.92 RBC 3.22 L Hgb 10.9 L Hct 33.8 L MCV 105.0 H MCH 33.9 MCHC 32.2 RDW Std Deviation 57.6 H RDW Coeff of Lorene 14.7 H Plt Count 151 MPV 9.7 Immature Gran % (Auto) 0.2 Neut % (Auto) 46.8 Lymph % (Auto) 47.8 [place] % (Auto) 3.9 Eos % (Auto) 1.0 Baso % (Auto) 0.3 Neut # (Auto) 2.77 Lymph # (Auto) 2.83 [place] # (Auto) 0.23 Eos # (Auto) 0.06 Baso # (Auto) 0.02 Immature Gran # (Auto) 0.01 Sodium 142 Potassium 4.0 Chloride 107 Carbon Dioxide 28 Anion Gap 7 BUN 49 H Creatinine 1.09 Est Cr Clr Drug Dosing 26.2 Est GFR ( Amer) 53.6 Est GFR (Non-Af Amer) 46.3 BUN/Creatinine Ratio 45.0 H Glucose 111 H Estimat Average Glucose 134 Hemoglobin A1c 6.3 H Calcium 9.0 Magnesium 2.1 Iron 56 Unsaturated IBC 347 Troponin I High Sens 62.1 H* 64.5 H* 74.0 H* B-Natriuretic Peptide 1285 H Vitamin B12 268 Folate 18.39 Urine Color Urine Appearance Urine pH Ur Specific [place] Urine Protein Urine Glucose (UA) Urine Ketones Urine Blood Urine Nitrite Urine Bilirubin Urine Urobilinogen Ur Leukocyte Esterase Serum Immunofixation Pending Tot [place]/Lambda Ratio Pending [place] Light Chain Anal Pending Lambda Light Chain Anal Pending 08/01/23 10:05 WBC RBC Hgb Hct MCV MCH MCHC RDW Std Deviation RDW Coeff of Lorene Plt Count MPV Immature Gran % (Auto) Neut % (Auto) Lymph % (Auto) [place] % (Auto) Eos % (Auto) Baso % (Auto) Neut # (Auto) Lymph # (Auto) [place] # (Auto) Eos # (Auto) Baso # (Auto) Immature Gran # (Auto) Sodium Potassium Chloride Carbon Dioxide Anion Gap BUN Creatinine Est Cr Clr Drug Dosing Est GFR ( Amer) Est GFR (Non-Af Amer) BUN/Creatinine Ratio Glucose Estimat Average Glucose Hemoglobin A1c Calcium Magnesium Iron Unsaturated IBC Troponin I High Sens B-Natriuretic Peptide Vitamin B12 Folate Urine Color Pending Urine Appearance Pending Urine pH Pending Ur Specific [place] Pending Urine Protein Pending Urine Glucose (UA) Pending Urine Ketones Pending Urine Blood Pending Urine Nitrite Pending Urine Bilirubin Pending Urine Urobilinogen Pending Ur Leukocyte Esterase Pending Serum Immunofixation Tot [place]/Lambda Ratio [place] Light Chain Anal Lambda Light Chain Anal Diagnostic Findings Labs reviewed and notable for slight anemia, normal potassium, stable renal function. Telemetry personally reviewed: Sinus rhythm. No arrhythmia. Medications Administered Current Inpatient Medications Acetaminophen (Acetaminophen 325 Mg Tab) 650 mg PO Q4H PRN PRN Reason: pain/fever Stop: 08/30/23 13:44 Al Hydrox/Mg Hydrox/Simethicone (Aluminum/Magnesium Susp 30 Ml Udc) 30 ml PO Q6H PRN PRN Reason: Dyspepsia Stop: 08/30/23 13:44 Albuterol (Albuterol Hfa 8 Gm Inhaler) 2 puffs INH Q6H PRN PRN Reason: SOB/Wheezing Stop: 08/30/23 13:43 Apixaban (Apixaban 2.5 Mg Tab) 2.5 mg PO BID DWAIN Stop: 08/30/23 20:59 Last Admin: 08/01/23 09:56 Dose: 2.5 mg Atorvastatin Calcium (Atorvastatin 10 Mg Tab) 10 mg PO DAILY [facility] Stop: 08/31/23 08:59 Last Admin: 08/01/23 09:56 Dose: 10 mg Azelastine HCl (Azelastine Hcl 0.1% Nasal 200 Sprays/27,400 Mcg Btl) 1 sprays YAMILA BID [facility] Stop: 08/30/23 20:59 Last Admin: 08/01/23 09:56 Dose: 1 sprays Buspirone HCl (Buspirone 5 Mg Tab) 5 mg PO BID DWAIN Stop: 08/30/23 20:59 Last Admin: 08/01/23 09:56 Dose: 5 mg Cyanocobalamin (Cyanocobalamin (B-12) 500 Mcg Tablet) 1,000 mcg PO QAM DWAIN Stop: 08/31/23 08:59 Last Admin: 08/01/23 09:57 Dose: 1,000 mcg Ergocalciferol (Ergocalciferol 1250 Mcg (50,000 Units) Cap) 1,250 mcg PO Q30D DWAIN Stop: 08/30/23 13:44 Last Admin: 07/31/23 17:19 Dose: 1,250 mcg Furosemide (Furosemide Inj 20 Mg/2 Ml Vial) 20 mg IV [id number] DWAIN Stop: 08/30/23 16:59 Last Admin: 08/01/23 09:55 Dose: 20 mg Ondansetron HCl (Ondansetron Inj 2 Mg/Ml 2 Ml Vial) 4 mg IV Q6H PRN PRN Reason: Nausea Stop: 08/30/23 13:44 Pantoprazole Sodium (Pantoprazole 40 Mg Tab) 40 mg PO DAILY DWAIN Stop: 08/31/23 08:59 Last Admin: 08/01/23 09:56 Dose: 40 mg Potassium Chloride (Potassium Chloride 10 Meq Tabcr) 30 meq PO DAILY DWAIN Stop: 08/31/23 08:59 Last Admin: 08/01/23 09:56 Dose: 30 meq Sotalol HCl (Sotalol Hcl 80 Mg Tab) 40 mg PO BID DWAIN Stop: 08/30/23 20:59 Last Admin: 08/01/23 09:55 Dose: 40 mg PG Care Time/CCT Total # of Minutes Spent Total Time Spent with Patient: Total time spent is greater than 50% in coordination of care (as documented) at patient's floor/unit and/or counseling patient: Coding Level of Care Code 65046 SUB INP/OBS CARE 3/50MIN Diagnoses Acute HFrEF (heart failure with reduced ejection fraction) I50.21 Cardiomyopathy I42.9 Pulmonary hypertension I27.20 Paroxysmal atrial fibrillation I48.0 Tachy-fermín syndrome I49.5 Elevated troponin R79.89 Pacemaker Z95.0 Aortic stenosis I35.0 Pericardial effusion I31.39
[2023-08-01 11:10] LABS: Appearance Urine Clear (Clear); Bacteria Urine Automated None Seen (None Seen); Bilirubin Urine Negative (Negative); Blood Urine 3+ (Negative); Color Urine Yellow; Epithelial Cell Urine Auto 0-2 /hpf (0-2); Glucose Urine UA Negative (Negative); Ketones Urine Negative (Negative); Leukocyte Esterase Urine 2+ (Negative); Mucus Urine Present (None Prsent); Nitrite Urine Negative (Negative); Protein Urine Trace (Negative); RBC Urine Automated >20 /hpf (0-2); Specific Gravity Urine 1.015 (1.000-1.030); Urobilinogen Urine Negative (Negative)
[2023-08-01 11:11] LABS: Cast Urine Automated 0-2 /lpf (0-2)
[2023-08-01 12:15] LABS: Calcium 9.2 mg/dl (8.6-10.3); Est GFR (African American) 50.8 ml/min; Est GFR (Non-African American) 43.8 ml/min
[2023-08-01 12:24] LABS: Troponin I High Sensitivity 65.7 pg/ml (0-14)
[2023-08-01] MEDS ORDERED: DEXTROSE 50% 50 ML SYRINGE IV PRN (12:42)
[2023-08-01] MEDS ORDERED: GLUCAGON FOR INJ 1 MG VIAL SQ PRN (12:42)
[2023-08-01] MEDS ORDERED: GLUCOSE 40% GEL 15 GM TUBE PO PRN (12:42)
[2023-08-01] MEDS ORDERED: CARBOHYDRATES FOR HYPOGLYCEMIA PO PRN (12:42)
[2023-08-01] MEDS ORDERED: GLUCOSE 10 TAB/TUBE PO PRN (12:42)
[2023-08-01] MEDS: INSULIN ASPART PER UNIT CHARGE SC SCH (13:06)
--- NOTE | 2023-08-01 17:39 | Communication Note ---
Date of Service: August 01, 2023 Sotalolol discontinued given HF w/ reduced EF and significant LVH. Consideration for amiodarone if needed SOB reported this afternoon, duoneb x 1, repeat cxr ordered. Planning to continue lasix IV BID per discussion w/ contracts law professor on consult/following. Continue to monitor
[2023-08-01] MEDS: ALBUT/IPRATROP 3MG/0.5MG NEB 3 ML VIAL NEB STA (17:44)
[2023-08-01 20:18] LABS: Base Excess ABG 0.8 mEq/L (-9-1.8); HCO3 ABG 26 mmol/L (19-24); Oxygen Saturation ABG 98.7 % (90-95); PCO2 ABG 43 mmHg (35-46); PO2 ABG 184 mmHg (80-95); pH ABG 7.39 (7.35-7.45)
[2023-08-01 20:19] LABS: Allen Test Pos (Pos)
--- NOTE | 2023-08-01 20:37 | XRay Report ---
XR chest 1V portable CLINICAL HISTORY: sob TECHNIQUE: Single frontal radiograph of the chest was obtained. Comparison: Comparison is made to chest radiograph 07/31/2023 FINDINGS: An implanted pacemaker is seen. Cardiomegaly is noted. The aortic arch is calcified. The lungs are cl ear. No evidence of pleural effusion or pneumothorax. IMPRESSION: Cardiomegaly with improved pulmonary vascular congestion. ACT 112: Negative or not required by law. Electronically signed by: Ankit Hutton M.D. 08/01/2023 8:35 PM
[2023-08-01] MEDS: FUROSEMIDE INJ 20 MG/2 ML VIAL IV SCH (21:23)
--- NOTE | 2023-08-01 21:39 | Communication Note ---
Date of Service: August 01, 2023 Alerted by nursing that patient has been more lethargic/fatigued in comparison to prior shift. Patient alerts to voice and is fully oriented/interactive. Is now on 1-2L NC as she was in the 90s on RA. Patient saturating in the high 90s with oxygen. Likely no true oxygen requirement. CXR ordered earlier today - per my read, interval improvement in pulmonary congestion with BID dosing of Lasix 20 mg IV. Otherwise HDS - no tachycardia or fevers. Pressures occasionally on the softer side, but no true hypotension. Ordered CBC, CMP, ABG, blood cultures. Patient not on antibiotics. Did have +UA, UCx pending. CMP with new JOSELITO. Would hold AM dose of Lasix and reevaluate per day team. Resident Activity Tracking Resident Involvement: Resident Care Provided Care Provided: Adult Hospital Medicine
[2023-08-01 22:52] LABS: Albumin Globulin Ratio 1.9 (0.9-2); Albumin Level 3.6 gm/dl (3.4-5.0); BUN Creatinine Ratio 39.4 (10-20); Creatinine Clr Calc Pharmacy 22.5 ml/min; Est GFR (African American) 44.6 ml/min; Est GFR (Non-African American) 38.5 ml/min; Globulin 1.9 gm/dl (2.5-4.0); Magnesium 2.1 mg/dl (1.7-2.4); Total Protein 5.5 gm/dl (6.0-8.3)
[2023-08-01 23:04] LABS: Hematocrit (blood only) 31.4 % (37.0-47.0); Mean Corpuscular Hemoglobin 33.3 pg (25.0-34.0); Mean Corpuscular Hgb Conc 31.8 g/dL (32.0-36.0); Mean Corpuscular Volume 104.7 fL (80.0-100.0); Mean Platelet Volume 9.3 fL (9.4-12.4); Platelet Count 130 K/uL (130-400); RDW Coefficient of Variation 14.9 % (11.5-14.5); RDW Standard Deviation 56.9 fL (36.4-46.3); White Blood Count 5.63 K/ul (4.8-10.8)
[2023-08-01 23:45] LABS: Basophils # (auto) 0.01 K/uL (0.00-0.20); Basophils % (auto) 0.2 %; Eosinophils # (auto) 0.08 K/uL (0.00-0.50); Eosinophils % (auto) 1.4 %; Immature Granulocytes # (auto) 0.01 K/uL (0.01-0.20); Immature Granulocytes % (auto) 0.2 %; Lymphocytes # (auto) 3.08 K/uL (1.20-3.40); Lymphocytes % (auto) 54.7 %; Monocytes # (auto) 0.17 K/uL (0.11-0.59); Neutrophils # (auto) 2.28 K/uL (1.40-6.50); Neutrophils % (auto) 40.5 %
--- NOTE | 2023-08-02 06:23 | Electrocardiogram Report ---
Test Reason : Blood Pressure : / mmHG Vent. Rate : 070 BPM Atrial Rate : 070 BPM P-R Int : 196 ms QRS Dur : 158 ms QT Int : 490 ms P-R-T Axes : 238 124 -08 degrees QTc Int : 529 ms AV dual-paced rhythm Abnormal ECG No previous ECGs available Confirmed by Eddie Lamas ([id number]) on 08/02/2023 6:22:39 AM Referred By: REFERRED SELF Confirmed By:Eddie Lamas
[2023-08-02 07:01] LABS: Hematocrit (blood only) 30.2 % (37.0-47.0); Hemoglobin 9.7 g/dl (12.0-16.0); Mean Corpuscular Hemoglobin 33.2 pg (25.0-34.0); Mean Corpuscular Hgb Conc 32.1 g/dL (32.0-36.0); Mean Corpuscular Volume 103.4 fL (80.0-100.0); Mean Platelet Volume 9.3 fL (9.4-12.4); Platelet Count 133 K/uL (130-400); RDW Coefficient of Variation 14.6 % (11.5-14.5); RDW Standard Deviation 55.7 fL (36.4-46.3); Red Blood Count 2.92 M/uL (4.20-5.40); White Blood Count 5.49 K/ul (4.8-10.8)
[2023-08-02 07:16] LABS: BUN Creatinine Ratio 42.1 (10-20); Calcium 8.9 mg/dl (8.6-10.3); Creatinine Clr Calc Pharmacy 25.6 ml/min; Est GFR (African American) 50.8 ml/min; Est GFR (Non-African American) 43.8 ml/min; Potassium 3.7 mmol/L (3.5-5.1)
--- NOTE | 2023-08-02 07:50 | Hospitalist Progress Note ---
Date of Service August 02, 2023 Assessment & Plan (1) Acute on chronic HFrEF (heart failure with reduced ejection fraction): Plan: Acute on chronic heart failure with REDUCED EF BNP 1285, CXR w/ vascular congestion and worsening LE edema prior to admission. Unfortunately was given NSS bolus on admit and orders to continue NSS @ 250cc/hr which I stopped once she reached her room on 2nd floor Placed on lasix 20mg IV BID on admission, continued per discussion w/ cardiology last evening given worsened status on presentation (however presented for n/v from drinking husbands chew cup) Dr Lamas, cardiology consulted ECHO w/ LVEF 35-40%, global hypokinesis. Severe concentric LVH. Type III diastolic dysfunction. Septal flattening during diastole and systole suggesting RV volume and pressure overload. Severe left atrial dilation. Mildly reduced RV systolic function. Sclerotic aortic valve with possible mild aortic stenosis. Mild MR. Moderate TR. RVSP 64. Moderate pericardial effusion. AM lasix placed on hold due to overnight reports of confusion but oriented at time of exam and for myself. Renal function improved this morning and mentation back to baseline and plans to resume lasix but at lower dose 10mg IV BID to prevent hypotension/issues Monitoring daily weights, I&O - Weights 53.6kg on admission --> presently 49.4kg - Net negative 1.7L yesterday and will monitor Concerns for amyloidosis based on echo images -kappa/lambda light chains, serum immunofixation and urine immunofixation ordered and pending -- will need f/u -Recommendations for outpatient cardiac MRI Given concerns for this, NO ENTRESTO/VERENICE/ARB and standard HF medications can potentially cause more harm. If NOT found to have amyloidosis, can consider introducing these medications. Diuretics to be mainstay of therapy in meantime, consideration for spironolactone after initial loop diuretic therapy Sotalol discontinued given HF w/ reduced EF and significant LVH (last dose AM 07/31) - Consideration for amiodarone if needed for her afib. continues on eliquis 5mg BID Iron studies also checked and [id number], Venofer IV x 1 ordered and can consider repeating dose in AM. Trans % sat 13 B12 also borderline low 238 and PO supplementation started Supplemental O2 titration as needed Overnight pulse ox study ordered as wakes up short of breath/orthopnea to see if needing NC H2/sleep study outpt Therapy evals pending Monitor labs/exam in AM. (2) Cardiomyopathy: Plan: Myocardial perfusion study in 2023 unremarkable. Significant left ventricular hypertrophy with speckled appearance on echo, concerning for amyloidosis (also with aortic stenosis and pericardial effusion). ICD for primary prevention is not currently indicated but if LV systolic function further declines, would consider if deemed appropriate by EP. No urgent indication for invasive ischemic evaluation at this time but continued inpatient stay Hypervolemic as above, however reduced IV lasix to prevent hypotension/Clif as above (3) Paroxysmal atrial fibrillation: Plan: Had been on sotalol on admission as outpatient medication which was continued. AV paced on monitor Sotalolol discontinued given HF w/ reduced EF and significant LVH. Consideration for amiodarone if needed Continues on eliquis 2.5mg BID, appropriately dosed (4) Aortic stenosis: Plan: Nonsevere. Can be monitored as an outpatient. Decreased lasix as above to prevent significant hypotension (5) Tachy-fermín syndrome: Plan: s/p dual-chamber pacemaker: Has been referred by her [facility] business system consultant to [facility] delphi programmer, Dr. Kuhn, to manage her pacemaker. Follow-up with the EP as scheduled or otherwise as above (6) Pericardial effusion: Plan: Seems to be chronic over the past several months. No suggestion of cardiac tamponade currently. Diuretics as outlined and continue to monitor (7) Anemia: Plan: Hemoglobin 9.8, patient reports significant weight loss, no bloody or black st ools improvement in hgb w/ diuresis however dropped this morning and lasix on hold B12 borderline/supplementation as above. Folate wnl. Iron studies w/ low trans % sat/ferritin and given SOB/HR, Venofer x 1 ordered and will monitor fecal occult ordered for completeness however denied blood in stool Monitor CBC/any bleeding (8) Elevated troponin: Plan: Repeat troponin 74--> 65.7, demand ischemia in setting of heart failure, also concerns for amyloid as above and labs pending for further eval No CP reported at present time. Management as above (9) CKD (chronic kidney disease) stage 3, GFR 30-59 ml/min: Plan: as above, lasix at lower dose and will monitor. 24hr urine study as above for amyloid renal dose meds/avoid nephrotoxins as able Monitor (10) Acquired lymphedema: Plan: Chronic lymphedema, reported worsening prior to admission elevation rec'd, diuretic as above compression to be considered (11) DM type 2 (diabetes mellitus, type 2): Plan: A1c 6.0, pre-DM. Not on any meds at baseline BSG AC/HS added, sliding scale. ?benefit jardiance given above Monitor (12) Pacemaker: Plan: cardiology consulted, Dr Kuhn to be seen in f/u for EP (13) Pulmonary hypertension: Plan: Pulmonary hypertension: Likely due to heart failure. Diurese as above. ?underlying EDUARDO, consider sleep study. will check overnight study tonight Mildly dilated thoracic ascending aorta: --Avoid strenuous lifting for which the Valsalva maneuver is required. Annual surveillance. (14) B12 deficiency: Plan: low normal 268, PO supplementation started/would continue at dc Plan continued inpatient stay, appreciate cardiology recs/assistance updated by phone, to be in to visit with her this afternoon therapy evals placed to see about potential need for rehab at dc Admission and Anticipated Discharge Date Admission Date: July 31, 2023 Subjective Fatigued this morning but resting comfortably in bed. Denies having any pain. Reports shortness of breath improved. Continuing diuretics but decreased dose to prevent significant hypotension and did have 1.7L urine output yesterday. Urine studies/fixation pending. Not yet seen by cardiology yet today but remains inpatient at present time. Medley with clear yellow urine draining. called with update.-- he is on way in to see Ekaterina now. Discussed to let me know if any issues/concerns. Questions/concerns addressed at this time. Physical Exam Physical Exam: General: 83yo female, chronically ill appearing, laying in bed, resting, reports feeling little better, fatigued appearing Head: atraumatic, thinning hair, trachea midline, mmm Resp: even/unlabored, diminished in the bases but no obvious w/c/r, on 1L NC SpO2 97% CV: regular rhythm/rate, +systolic murmur, +b/l LE edema improving (slightly more on the left than right at baseline reported), +neuropathy (at baseline) GI: +BS,soft/NT, no significant distension MSK/Neuro: answering questions appropriately, not confused, able to follow commands generalized weakness but nonfocal Skin: mirna LL lateral leg, slight bruise/ecchymosis to medial aspect Results & Data Results & Data Vital Signs (Past 12 Hours) Vital Signs Temp Pulse Pulse Resp BP BP Pulse Ox 08/02/23 07:30 70 08/02/23 07:13 36.5 C 74 18 102/63 99 08/02/23 03:55 36.3 C L 64 18 101/70 97 08/02/23 00:20 08/01/23 23:25 36.3 C L 70 16 111/74 98 08/01/23 22:01 70 08/01/23 21:33 97 08/01/23 21:31 90 08/01/23 21:18 70 16 111/74 109/64 94 08/01/23 19:56 36.7 C 72 16 91/61 L 100 O2 Del Method O2 Flow Rate 08/02/23 07:30 08/02/23 07:13 Nasal Cannula 1 08/02/23 03:55 Nasal Cannula 2 08/02/23 00:20 Nasal Cannula 1 08/01/23 23:25 Nasal Cannula 2 08/01/23 22:01 08/01/23 21:33 Nasal Cannula 1 08/01/23 21:31 Room Air 08/01/23 21:18 Room Air 08/01/23 19:56 Nasal Cannula 2 Laboratory Results 08/02/23 08/02/23 08/01/23 Range/Units 10:00 06:24 22:52 WBC 5.49 5.63 RBC 2.92 L 3.00 L Hgb 9.7 L 10.0 L Hct 30.2 L 31.4 L MCV 103.4 H 104.7 H MCH 33.2 33.3 MCHC 32.1 31.8 L RDW Std Deviation 55.7 H 56.9 H RDW Coeff of Lorene 14.6 H 14.9 H Plt Count 133 130 MPV 9.3 L 9.3 L Immature Gran % (Auto) 0.2 Neut % (Auto) 40.5 Lymph % (Auto) 54.7 Pleasants % (Auto) 3.0 Eos % (Auto) 1.4 Baso % (Auto) 0.2 Neut # (Auto) 2.28 Lymph # (Auto) 3.08 [place]as[place] # (Auto) 0.17 Eos # (Auto) 0.08 Baso # (Auto) 0.01 Immature Gran # (Auto) 0.01 Absolute Nucleated RBC Nucleated RBC % (auto) Neutrophils % (Manual) Band Neutrophils % Lymphocytes % (Manual) Prolymphocyte % Reactive Lymphs % (Man) Monocytes % (Manual) Eosinophils % (Manual) Basophils % (Manual) Metamyelocytes % (Man) Myelocytes % (Man) Promyelocytes % (Man) Blast Cells % (Manual) Plasma Cell % (Manual) Other Cells % Nucleated RBC % Neutrophils # (Manual) Band Neutrophils # Total Absolute Neuts Lymphocytes # (Manual) Prolymphocyte # Reactive Lymphs # Total Abs Lymphocytes Monocytes # (Manual) Eosinophils # (Manual) Basophils # (Manual) Metamyelocytes # (Man) Myelocytes # (Manual) Promyelocytes # (Man) Blast Cells # (Man) Plasma Cell # (Manual) Other Cells # Nucleated RBCs # (Man) Hypersegmented Neuts Hyposegmented Neuts Hypogranular Neuts Large Granular Lymphs # Lrg Granular Lymphs Hairy Cells Smudge Cells Toxic Granulation Toxic Vacuolation Dohle Bodies Shasha Rods Platelet Estimate Hypogranular Platelets Giant Platelets Platelet Satelliting RBC Morphology Polychromasia Hypochromasia Poikilocytosis Basophilic Stippling Anisocytosis Microcytosis Macrocytosis Spherocytes Pappenheimer Bodies Sickle Cells Target Cells Tear Drop Cells Ovalocytes Stomatocytes [place] Bodies Echinocytes Acanthocytes (Spur) Rouleaux RBC Agglutinates Schistocytes Sezary Cell ABG pH (7.35-7.45) ABG pCO2 (35-46) mmHg ABG pO2 (80-95) mmHg ABG HCO3 (19-24) mmol/L ABG O2 Saturation (90-95) % ABG Base Excess (-9-1.8) mEq/L Vaibhav Test (Pos) Oxygen Given Sodium 142 (136-145) mmol/L Potassium 3.7 (3.5-5.1) mmol/L Chloride 105 (98-107) mmol/L Carbon Dioxide 31 (21-32) mmol/L Anion Gap 6 (3-11) BUN 48 H (6-23) mg/dl Creatinine 1.14 (0.6-1.2) mg/dl Est Cr Clr Drug Dosing 25.6 ml/min Est GFR ( Amer) 50.8 ml/min Est GFR (Non-Af Amer) 43.8 ml/min BUN/Creatinine Ratio 42.1 H (10-20) Glucose 100 H (70-99(Fasting)) mg/dl POC Glucose (70-99) mg/dl Calcium 8.9 (8.6-10.3) mg/dl Magnesium 2.0 (1.7-2.4) mg/dl Iron 51 (35-150) mcg/dl TIBC 380 (250-450) mcg/dl Unsaturated IBC 329 (155-355) mcg/dl Transferrin % Sat 13 L (15-50) % Ferritin 32.9 (8-388) ng/ml Total Bilirubin (0.2-1.0) mg/dl AST (13-39) U/L ALT (7-52) U/L Alkaline Phosphatase (34-104) U/L Troponin I High Sens (0-14) pg/ml B-Natriuretic Peptide 1067 H (0-100) pg/ml Total Protein (6.0-8.3) gm/dl Albumin (3.4-5.0) gm/dl Globulin (2.5-4.0) gm/dl Albumin/Globulin Ratio (0.9-2) Stl C. cayetanensis PCR Pending Stool Rotavirus A PCR Pending Stl Adenov F 40/41 PCR Pending Stool Astrovirus (PCR) Pending Stool Campylobacter PCR Pending Stl C. diff Tox B Gene Pending Stool Cryptosporidium PCR Pending Stl E.coli Shiga Tox PCR Pending Stl Enterotoxigenic E PCR Pending Stool EAEC (PCR) Pending Stl E. histolytica PCR Pending Stool Giardia Lamblia PCR Pending Stool Salmonella PCR Pending Stool Sapovirus (PCR) Pending Stl P. shigelloides PCR Pending Stl Shigella/EIEC PCR Pending St Y.enterocolitica PCR Pending Stool Vibrio (PCR) Pending Stl Vibrio cholerae PCR Pending Stl Norovirus GI/GII PCR Pending Urine Immunofixation Blood Parasites ID 08/01/23 08/01/23 08/01/23 Range/Units 22:15 21:18 21:06 WBC Cancelled RBC Cancelled Hgb Cancelled Hct Cancelled MCV Cancelled MCH Cancelled MCHC Cancelled RDW Std Deviation Cancelled RDW Coeff of Lorene Cancelled Plt Count Cancelled MPV Cancelled Immature Gran % (Auto) Cancelled Neut % (Auto) Cancelled Lymph % (Auto) Cancelled Pleasants % (Auto) Cancelled Eos % (Auto) Cancelled Baso % (Auto) Cancelled Neut # (Auto) Cancelled Lymph # (Auto) Cancelled [place] # (Auto) Cancelled Eos # (Auto) Cancelled Baso # (Auto) Cancelled Immature Gran # (Auto) Cancelled Absolute Nucleated RBC Cancelled Nucleated RBC % (auto) Cancelled Neutrophils % (Manual) Cancelled Band Neutrophils % Cancelled Lymphocytes % (Manual) Cancelled Prolymphocyte % Cancelled Reactive Lymphs % (Man) Cancelled Monocytes % (Manual) Cancelled Eosinophils % (Manual) Cancelled Basophils % (Manual) Cancelled Metamyelocytes % (Man) Cancelled Myelocytes % (Man) Cancelled Promyelocytes % (Man) Cancelled Blast Cells % (Manual) Cancelled Plasma Cell % (Manual) Cancelled Other Cells % Cancelled Nucleated RBC % Cancelled Neutrophils # (Manual) Cancelled Band Neutrophils # Cancelled Total Absolute Neuts Cancelled Lymphocytes # (Manual) Cancelled Prolymphocyte # Cancelled Reactive Lymphs # Cancelled Total Abs Lymphocytes Cancelled Monocytes # (Manual) Cancelled Eosinophils # (Manual) Cancelled Basophils # (Manual) Cancelled Metamyelocytes # (Man) Cancelled Myelocytes # (Manual) Cancelled Promyelocytes # (Man) Cancelled Blast Cells # (Man) Cancelled Plasma Cell # (Manual) Cancelled Other Cells # Cancelled Nucleated RBCs # (Man) Cancelled Hypersegmented Neuts Cancelled Hyposegmented Neuts Cancelled Hypogranular Neuts Cancelled Large Granular Lymphs Cancelled # Lrg Granular Lymphs Cancelled Hairy Cells Cancelled Smudge Cells Cancelled Toxic Granulation Cancelled Toxic Vacuolation Cancelled Dohle Bodies Cancelled Shasha Rods Cancelled Platelet Estimate Cancelled Hypogranular Platelets Cancelled Giant Platelets Cancelled Platelet Satelliting Cancelled RBC Morphology Cancelled Polychromasia Cancelled Hypochromasia Cancelled Poikilocytosis Cancelled Basophilic Stippling Cancelled Anisocytosis Cancelled Microcytosis Cancelled Macrocytosis Cancelled Spherocytes Cancelled Pappenheimer Bodies Cancelled Sickle Cells Cancelled Target Cells Cancelled Tear Drop Cells Cancelled Ovalocytes Cancelled Stomatocytes Cancelled [place] Bodies Cancelled Echinocytes Cancelled Acanthocytes (Spur) Cancelled Rouleaux Cancelled RBC Agglutinates Cancelled Schistocytes Cancelled Sezary Cell Cancelled ABG pH (7.35-7.45) ABG pCO2 (35-46) mmHg ABG pO2 (80-95) mmHg ABG HCO3 (19-24) mmol/L ABG O2 Saturation (90-95) % ABG Base Excess (-9-1.8) mEq/L Vaibhav Test (Pos) Oxygen Given Sodium 140 (136-145) mmol/L Potassium 4.0 (3.5-5.1) mmol/L Chloride 107 (98-107) mmol/L Carbon Dioxide 27 (21-32) mmol/L Anion Gap 6 (3-11) BUN 50 H (6-23) mg/dl Creatinine 1.27 H (0.6-1.2) mg/dl Est Cr Clr Drug Dosing 22.5 ml/min Est GFR ( Amer) 44.6 ml/min Est GFR (Non-Af Amer) 38.5 ml/min BUN/Creatinine Ratio 39.4 H (10-20) Glucose 112 H (70-99(Fasting)) mg/dl POC Glucose 126 H (70-99) mg/dl Calcium 9.0 (8.6-10.3) mg/dl Magnesium 2.1 (1.7-2.4) mg/dl Iron (35-150) mcg/dl TIBC (250-450) mcg/dl Unsaturated IBC (155-355) mcg/dl Transferrin % Sat (15-50) % Ferritin (8-388) ng/ml Total Bilirubin 1.0 (0.2-1.0) mg/dl AST 15 (13-39) U/L ALT 11 (7-52) U/L Alkaline Phosphatase 65 (34-104) U/L Troponin I High Sens (0-14) pg/ml B-Natriuretic Peptide (0-100) pg/ml Total Protein 5.5 L (6.0-8.3) gm/dl Albumin 3.6 (3.4-5.0) gm/dl Globulin 1.9 L (2.5-4.0) gm/dl Albumin/Globulin Ratio 1.9 (0.9-2) Stl C. cayetanensis PCR Stool Rotavirus A PCR Stl Adenov F 40/41 PCR Stool Astrovirus (PCR) Stool Campylobacter PCR Stl C. diff Tox B Gene Stool Cryptosporidium PCR Stl E.coli Shiga Tox PCR Stl Enterotoxigenic E PCR Stool EAEC (PCR) Stl E. histolytica PCR Stool Giardia Lamblia PCR Stool Salmonella PCR Stool Sapovirus (PCR) Stl P. shigelloides PCR Stl Shigella/EIEC PCR St Y.enterocolitica PCR Stool Vibrio (PCR) Stl Vibrio cholerae PCR Stl Norovirus GI/GII PCR Urine Immunofixation Pending Blood Parasites ID Cancelled 08/01/23 08/01/23 08/01/23 Range/Units 20:11 17:22 11:45 WBC RBC Hgb Hct MCV MCH MCHC RDW Std Deviation RDW Coeff of Lorene Plt Count MPV Immature Gran % (Auto) Neut % (Auto) Lymph % (Auto) [place] % (Auto) Eos % (Auto) Baso % (Auto) Neut # (Auto) Lymph # (Auto) [place] # (Auto) Eos # (Auto) Baso # (Auto) Immature Gran # (Auto) Absolute Nucleated RBC Nucleated RBC % (auto) Neutrophils % (Manual) Band Neutrophils % Lymphocytes % (Manual) Prolymphocyte % Reactive Lymphs % (Man) Monocytes % (Manual) Eosinophils % (Manual) Basophils % (Manual) Metamyelocytes % (Man) Myelocytes % (Man) Promyelocytes % (Man) Blast Cells % (Manual) Plasma Cell % (Manual) Other Cells % Nucleated RBC % Neutrophils # (Manual) Band Neutrophils # Total Absolute Neuts Lymphocytes # (Manual) Prolymphocyte # Reactive Lymphs # Total Abs Lymphocytes Monocytes # (Manual) Eosinophils # (Manual) Basophils # (Manual) Metamyelocytes # (Man) Myelocytes # (Manual) Promyelocytes # (Man) Blast Cells # (Man) Plasma Cell # (Manual) Other Cells # Nucleated RBCs # (Man) Hypersegmented Neuts Hyposegmented Neuts Hypogranular Neuts Large Granular Lymphs # Lrg Granular Lymphs Hairy Cells Smudge Cells Toxic Granulation Toxic Vacuolation Dohle Bodies Shasha Rods Platelet Estimate Hypogranular Platelets Giant Platelets Platelet Satelliting RBC Morphology Polychromasia Hypochromasia Poikilocytosis Basophilic Stippling Anisocytosis Microcytosis Macrocytosis Spherocytes Pappenheimer Bodies Sickle Cells Target Cells Tear Drop Cells Ovalocytes Stomatocytes [place] Bodies Echinocytes Acanthocytes (Spur) Rouleaux RBC Agglutinates Schistocytes Sezary Cell ABG pH 7.39 (7.35-7.45) ABG pCO2 43 (35-46) mmHg ABG pO2 184 H (80-95) mmHg ABG HCO3 26 H (19-24) mmol/L ABG O2 Saturation 98.7 H (90-95) % ABG Base Excess 0.8 (-9-1.8) mEq/L Vaibhav Test Pos (Pos) Oxygen Given 2 L Sodium 141 (136-145) mmol/L Potassium 4.0 (3.5-5.1) mmol/L Chloride 107 (98-107) mmol/L Carbon Dioxide 28 (21-32) mmol/L Anion Gap 6 (3-11) BUN 49 H (6-23) mg/dl Creatinine 1.14 (0.6-1.2) mg/dl Est Cr Clr Drug Dosing 25.0 ml/min Est GFR ( Amer) 50.8 ml/min Est GFR (Non-Af Amer) 43.8 ml/min BUN/Creatinine Ratio 43.0 H (10-20) Glucose 125 H (70-99(Fasting)) mg/dl POC Glucose 120 H (70-99) mg/dl Calcium 9.2 (8.6-10.3) mg/dl Magnesium (1.7-2.4) mg/dl Iron (35-150) mcg/dl TIBC (250-450) mcg/dl Unsaturated IBC (155-355) mcg/dl Transferrin % Sat (15-50) % Ferritin (8-388) ng/ml Total Bilirubin (0.2-1.0) mg/dl AST (13-39) U/L ALT (7-52) U/L Alkaline Phosphatase (34-104) U/L Troponin I High Sens 65.7 H* (0-14) pg/ml B-Natriuretic Peptide (0-100) pg/ml Total Protein (6.0-8.3) gm/dl Albumin (3.4-5.0) gm/dl Globulin (2.5-4.0) gm/dl Albumin/Globulin Ratio (0.9-2) Stl C. cayetanensis PCR Stool Rotavirus A PCR Stl Adenov F 40/41 PCR Stool Astrovirus (PCR) Stool Campylobacter PCR Stl C. diff Tox B Gene Stool Cryptosporidium PCR Stl E.coli Shiga Tox PCR Stl Enterotoxigenic E PCR Stool EAEC (PCR) Stl E. histolytica PCR Stool Giardia Lamblia PCR Stool Salmonella PCR Stool Sapovirus (PCR) Stl P. shigelloides PCR Stl Shigella/EIEC PCR St Y.enterocolitica PCR Stool Vibrio (PCR) Stl Vibrio cholerae PCR Stl Norovirus GI/GII PCR Urine Immunofixation Blood Parasites ID Diagnostic Findings Chest X-Ray 08/01/23 17:36 XR chest 1V portable CLINICAL HISTORY: sob TECHNIQUE: Single frontal radiograph of the chest was obtained. Comparison: Comparison is made to chest radiograph 07/31/2023 FINDINGS: An implanted pacemaker is seen. Cardiomegaly is noted. The aortic arch is calcified. The lungs are clear. No evidence of pleural effusion or pneumothorax. IMPRESSION: Cardiomegaly with improved pulmonary vascular congestion. ACT 112: Negative or not required by law. Electronically signed by: Ankit Hutton M.D. 08/01/2023 8:35 PM PG Care Time/CCT Total # of Minutes Spent Total Time Spent with Patient: Total time spent is greater than 50% in coordination of care (as documented) at patient's floor/unit and/or counseling patient: Coding Level of Care Code 17744 SUB INP/OBS CARE 3/50MIN Diagnoses Acute on chronic HFrEF (heart failure with reduced ejection fraction) I50.23 Cardiomyopathy I42.9 Paroxysmal atrial fibrillation I48.0 Aortic stenosis I35.0 Tachy-fermín syndrome I49.5 Pericardial effusion I31.39 Anemia D64.9 Elevated troponin R79.89 CKD (chronic kidney disease) stage 3, GFR 30-59 ml/min N18.30 Acquired lymphedema I89.0 DM type 2 (diabetes mellitus, type 2) E11.9 Pacemaker Z95.0 Pulmonary hypertension I27.20 B12 deficiency E53.8
[2023-08-02] MEDS: ACETAMINOPHEN 325 MG TAB PO PRN (08:32)
[2023-08-02] MEDS: FUROSEMIDE INJ 20 MG/2 ML VIAL IV SCH (08:33)
[2023-08-02] MEDS: POTASSIUM CHLORIDE 10 MEQ TABCR PO STA (08:33)
[2023-08-02] MEDS ORDERED: FUROSEMIDE INJ 20 MG/2 ML VIAL IV SCH (09:00)
[2023-08-02 10:28] LABS: Ferritin 32.9 ng/ml (8-388)
[2023-08-02] MEDS: IRON SUCROSE 300 MG in SODIUM CHLORIDE 0.9% 250 ML IV ONE (13:02)
[2023-08-02 13:34] LABS: Adenovirus F 40/41 PCR Not Detected (NotDetected); Astrovirus PCR Not Detected (NotDetected); Campylobacter PCR Not Detected (NotDetected); Cryptosporidium PCR Not Detected (NotDetected); Cyclospora cayetanensis PCR Not Detected (NotDetected); Entamoeba histolytica PCR Not Detected (NotDetected); Enteroaggregative E.coli(EAEC) Not Detected (NotDetected); Enteropathogenic E.coli (EPEC) Not Detected (NotDetected); Enterotoxigenic E.coli (ETEC) Not Detected (NotDetected); Giardia lamblia PCR Not Detected (NotDetected); Norovirus GI/GII PCR Not Detected (NotDetected); Plesiomonas shigelloides PCR Not Detected (NotDetected); Rotavirus A PCR Not Detected (NotDetected); Salmonella PCR Not Detected (NotDetected); Sapovirus PCR Not Detected (NotDetected); Shiga-like Toxin E.coli (STEC) Not Detected (NotDetected); Shigella/Enteroinvasive E.coli Not Detected (NotDetected); Vibrio cholerae PCR Not Detected (NotDetected); Vibrio species PCR Not Detected (NotDetected); Yersinia enterocolitica PCR Not Detected (NotDetected)
--- NOTE | 2023-08-02 13:43 | Cardiology Progress Note ---
Date of Service August 02, 2023 Assessment & Plan (1) Acute HFrEF (heart failure with reduced ejection fraction): (2) Cardiomyopathy: (3) Pulmonary hypertension: (4) Paroxysmal atrial fibrillation: (5) Tachy-fermín syndrome: (6) Elevated troponin: (7) Pacemaker: (8) Aortic stenosis: (9) Pericardial effusion: Plan ASSESSMENT/PLAN: 1. Acute heart failure with reduced EF: Remains hypervolemic but diuresed well yesterday. NYHA class III. Recommend net negative fluid balance of 1 to 2 L daily if able/tolerated. Strict I's and O's. Low-sodium diet. Daily weights. Lasix has been reduced to 10 mg twice daily given azotemic labs on 08/01/23. Concern for amyloidosis based on echo images. [place]/lambda light chains, serum immunofixation and urine immunofixation pending. Recommend outpatient cardiac MRI if able. Given this concern, no Entresto/VERENICE inhibitor/ARB. Standard heart failure medications would potentially cause more harm. If found to not have amyloidosis, would consider introducing these medications. Diuresis would be the mainstay therapy. Will consider spironolactone after initial loop diuretic therapy. 2. Cardiomyopathy: Significant left ventricular hypertrophy with speckled appearance on echo, concerning for amyloidosis (also with aortic stenosis and pericardial effusion). Plan as above. ICD for primary prevention is not currently indicated but if LV systolic function further declines, would consider if deemed appropriate by EP. Hypervolemic as above. Myocardial perfusion study in 2023 unremarkable. No urgent indication for invasive ischemic evaluation. 3. Pericardial effusion: Seems to be chronic over the past several months. No suggestion of cardiac tamponade currently. Monitor for now. 4. Pulmonary hypertension: Likely due to heart failure. Diurese as above. 5. Paroxysmal atrial fibrillation: On sotalol as per her other outside providers. Given heart failure with reduced EF and significant LVH, sotalol is not optimal choice for antiarrhythmic therapy. Sotalol discontinued on 08/01/2023. Atrial fibrillation was reportedly difficult to control during her [place] hospitalization in 2023. After some washout, could consider amiodarone if needed. Currently AV paced. Continue anticoagulation for stroke risk reduction. Monitor CBC. On Eliquis 2.5 mg twice daily based on age and weight. 6. Tachybradycardia syndrome s/p dual-chamber pacemaker: Has been referred by her [facility] industrial psychology teacher to [facility] public relations assistant, Dr. Kuhn, to manage her pacemaker. Follow-up with the EP as scheduled. 7. Elevated troponin: High-sensitivity troponin minimally elevated. Likely due to demand ischemia in the setting of heart failure. Recent negative myocardial perfusion study in 2023. She did not present with acute coronary syndrome. 8. Aortic stenosis: Nonsevere. Can be monitored as an outpatient. 9. Mildly dilated thoracic ascending aorta: Avoid strenuous lifting for which the Valsalva maneuver is required. Annual surveillance. 10. Disposition: Cardiology will continue to follow. On discharge, follow-up with primary industrial psychology teacher through [facility]. Her primary industrial psychology teacher cannot manage her pacemaker and they have an appointment to establish care with Dr. Kuhn for device management. As she will be following up with Dr. Kuhn, can offer heart failure program if she is willing. Patient care communicated with primary hospitalist service, Martina Choudhary PA-C. Highly complex medical issues. Admission and Anticipated Discharge Date Admission Date: July 31, 2023 Subjective Patient seen this morning. She has been tired. Breathing has improved. She believes that her breathing is back to baseline. She denies chest pain, syncope, near syncope, melena, hematochezia, or hematuria. She was alone in her hospital room. Physical Exam Physical Exam: Gen.: No acute distress. Alert. HEENT: Anicteric sclera. Neck: Mild JVD. Hepatojugular reflux. Cardiac: No ventricular heave. Regular. Normal S1-S2. 2/6 systolic murmur. Pulmonary: Decreased breath sounds, but otherwise clear to auscultation bilaterally. Abdomen: Soft, nontender, nondistended, with normoactive bowel sounds. No bruits noted. Extremities: 2+ radial pulses bilaterally. 2+ posterior tibialis pulses bilaterally. 1+ left lower extremity and Trace right lower extremity edema. No cyanosis. Psychiatric: Affect appears appropriate. Results & Data Vital Signs (Past 12 Hours) Vital Signs Temp Pulse Pulse Resp BP BP Pulse Ox 08/02/23 10:44 36.5 C 73 18 98/57 L 97 08/02/23 09:15 08/02/23 07:30 70 08/02/23 07:13 36.5 C 74 18 102/63 99 08/02/23 03:55 36.3 C L 64 18 101/70 97 O2 Del Method O2 Flow Rate 08/02/23 10:44 Nasal Cannula 1 08/02/23 09:15 Nasal Cannula 2 08/02/23 07:30 08/02/23 07:13 Nasal Cannula 1 08/02/23 03:55 Nasal Cannula 2 Intake & Output 07/31/23 08/01/23 08/02/23 08/03/23 06:59 06:59 06:59 06:59 Intake Total 1545 / 1545 675 / 675 Output Total 900 / 900 2402 / 2402 Balance 645 / 645 -1727 / -1727 Weight 114 lb 10.246 oz 120 lb 2.431 oz 108 lb 14.534 oz Laboratory Results Laboratory Results - last 24 hr 08/01/23 08/01/23 08/01/23 17:22 20:11 21:06 WBC RBC Hgb Hct MCV MCH MCHC RDW Std Deviation RDW Coeff of Lorene Plt Count MPV Immature Gran % (Auto) Neut % (Auto) Lymph % (Auto) [place] % (Auto) Eos % (Auto) Baso % (Auto) Neut # (Auto) Lymph # (Auto) [place] # (Auto) Eos # (Auto) Baso # (Auto) Immature Gran # (Auto) Absolute Nucleated RBC Nucleated RBC % (auto) Neutrophils % (Manual) Band Neutrophils % Lymphocytes % (Manual) Prolymphocyte % Reactive Lymphs % (Man) Monocytes % (Manual) Eosinophils % (Manual) Basophils % (Manual) Metamyelocytes % (Man) Myelocytes % (Man) Promyelocytes % (Man) Blast Cells % (Manual) Plasma Cell % (Manual) Other Cells % Nucleated RBC % Neutrophils # (Manual) Band Neutrophils # Total Absolute Neuts Lymphocytes # (Manual) Prolymphocyte # Reactive Lymphs # Total Abs Lymphocytes Monocytes # (Manual) Eosinophils # (Manual) Basophils # (Manual) Metamyelocytes # (Man) Myelocytes # (Manual) Promyelocytes # (Man) Blast Cells # (Man) Plasma Cell # (Manual) Other Cells # Nucleated RBCs # (Man) Hypersegmented Neuts Hyposegmented Neuts Hypogranular Neuts Large Granular Lymphs # Lrg Granular Lymphs Hairy Cells Smudge Cells Toxic Granulation Toxic Vacuolation Dohle Bodies Shasha Rods Platelet Estimate Hypogranular Platelets Giant Platelets Platelet Satelliting RBC Morphology Polychromasia Hypochromasia Poikilocytosis Basophilic Stippling Anisocytosis Microcytosis Macrocytosis Spherocytes Pappenheimer Bodies Sickle Cells Target Cells Tear Drop Cells Ovalocytes Stomatocytes Martínez-Brenas Bodies Echinocytes Acanthocytes (Spur) Rouleaux RBC Agglutinates Schistocytes Sezary Cell ABG pH 7.39 ABG pCO2 43 ABG pO2 184 H ABG HCO3 26 H ABG O2 Saturation 98.7 H ABG Base Excess 0.8 Vaibhav Test Pos Oxygen Given 2 L Sodium Potassium Chloride Carbon Dioxide Anion Gap BUN Creatinine Est Cr Clr Drug Dosing Est GFR ( Amer) Est GFR (Non-Af Amer) BUN/Creatinine Ratio Glucose POC Glucose 120 H Calcium Magnesium Iron TIBC Unsaturated IBC Transferrin % Sat Ferritin Total Bilirubin AST ALT Alkaline Phosphatase B-Natriuretic Peptide Total Protein Albumin Globulin Albumin/Globulin Ratio Stl C. cayetanensis PCR Stool Rotavirus A PCR Stl Adenov F 40/41 PCR Stool Astrovirus (PCR) Stool Campylobacter PCR Stl C. diff Tox B Gene Stool Cryptosporidium PCR Stl E.coli Shiga Tox PCR Stl Enterotoxigenic E PCR Stool EPEC (PCR) Stool EAEC (PCR) Stl E. histolytica PCR Stool Giardia Lamblia PCR Stool Salmonella PCR Stool Sapovirus (PCR) Stl P. shigelloides PCR Stl Shigella/EIEC PCR St Y.enterocolitica PCR Stool Vibrio (PCR) Stl Vibrio cholerae PCR Stl Norovirus GI/GII PCR Urine Immunofixation Pending Blood Parasites ID 08/01/23 08/01/23 08/01/23 21:18 22:15 22:52 WBC Cancelled 5.63 RBC Cancelled 3.00 L Hgb Cancelled 10.0 L Hct Cancelled 31.4 L MCV Cancelled 104.7 H MCH Cancelled 33.3 MCHC Cancelled 31.8 L RDW Std Deviation Cancelled 56.9 H RDW Coeff of Lorene Cancelled 14.9 H Plt Count Cancelled 130 MPV Cancelled 9.3 L Immature Gran % (Auto) Cancelled 0.2 Neut % (Auto) Cancelled 40.5 Lymph % (Auto) Cancelled 54.7 [place] % (Auto) Cancelled 3.0 Eos % (Auto) Cancelled 1.4 Baso % (Auto) Cancelled 0.2 Neut # (Auto) Cancelled 2.28 Lymph # (Auto) Cancelled 3.08 [place] # (Auto) Cancelled 0.17 Eos # (Auto) Cancelled 0.08 Baso # (Auto) Cancelled 0.01 Immature Gran # (Auto) Cancelled 0.01 Absolute Nucleated RBC Cancelled Nucleated RBC % (auto) Cancelled Neutrophils % (Manual) Cancelled Band Neutrophils % Cancelled Lymphocytes % (Manual) Cancelled Prolymphocyte % Cancelled Reactive Lymphs % (Man) Cancelled Monocytes % (Manual) Cancelled Eosinophils % (Manual) Cancelled Basophils % (Manual) Cancelled Metamyelocytes % (Man) Cancelled Myelocytes % (Man) Cancelled Promyelocytes % (Man) Cancelled Blast Cells % (Manual) Cancelled Plasma Cell % (Manual) Cancelled Other Cells % Cancelled Nucleated RBC % Cancelled Neutrophils # (Manual) Cancelled Band Neutrophils # Cancelled Total Absolute Neuts Cancelled Lymphocytes # (Manual) Cancelled Prolymphocyte # Cancelled Reactive Lymphs # Cancelled Total Abs Lymphocytes Cancelled Monocytes # (Manual) Cancelled Eosinophils # (Manual) Cancelled Basophils # (Manual) Cancelled Metamyelocytes # (Man) Cancelled Myelocytes # (Manual) Cancelled Promyelocytes # (Man) Cancelled Blast Cells # (Man) Cancelled Plasma Cell # (Manual) Cancelled Other Cells # Cancelled Nucleated RBCs # (Man) Cancelled Hypersegmented Neuts Cancelled Hyposegmented Neuts Cancelled Hypogranular Neuts Cancelled Large Granular Lymphs Cancelled # Lrg Granular Lymphs Cancelled Hairy Cells Cancelled Smudge Cells Cancelled Toxic Granulation Cancelled Toxic Vacuolation Cancelled Dohle Bodies Cancelled Shasha Rods Cancelled Platelet Estimate Cancelled Hypogranular Platelets Cancelled Giant Platelets Cancelled Platelet Satelliting Cancelled RBC Morphology Cancelled Polychromasia Cancelled Hypochromasia Cancelled Poikilocytosis Cancelled Basophilic Stippling Cancelled Anisocytosis Cancelled Microcytosis Cancelled Macrocytosis Cancelled Spherocytes Cancelled Pappenheimer Bodies Cancelled Sickle Cells Cancelled Target Cells Cancelled Tear Drop Cells Cancelled Ovalocytes Cancelled Stomatocytes Cancelled Martínez-Brenas Bodies Cancelled Echinocytes Cancelled Acanthocytes (Spur) Cancelled Rouleaux Cancelled RBC Agglutinates Cancelled Schistocytes Cancelled Sezary Cell Cancelled ABG pH ABG pCO2 ABG pO2 ABG HCO3 ABG O2 Saturation ABG Base Excess Vaibhav Test Oxygen Given Sodium 140 Potassium 4.0 Chloride 107 Carbon Dioxide 27 Anion Gap 6 BUN 50 H Creatinine 1.27 H Est Cr Clr Drug Dosing 22.5 Est GFR ( Amer) 44.6 Est GFR (Non-Af Amer) 38.5 BUN/Creatinine Ratio 39.4 H Glucose 112 H POC Glucose 126 H Calcium 9.0 Magnesium 2.1 Iron TIBC Unsaturated IBC Transferrin % Sat Ferritin Total Bilirubin 1.0 AST 15 ALT 11 Alkaline Phosphatase 65 B-Natriuretic Peptide Total Protein 5.5 L Albumin 3.6 Globulin 1.9 L Albumin/Globulin Ratio 1.9 Stl C. cayetanensis PCR Stool Rotavirus A PCR Stl Adenov F 40/41 PCR Stool Astrovirus (PCR) Stool Campylobacter PCR Stl C. diff Tox B Gene Stool Cryptosporidium PCR Stl E.coli Shiga Tox PCR Stl Enterotoxigenic E PCR Stool EPEC (PCR) Stool EAEC (PCR) Stl E. histolytica PCR Stool Giardia Lamblia PCR Stool Salmonella PCR Stool Sapovirus (PCR) Stl P. shigelloides PCR Stl Shigella/EIEC PCR St Y.enterocolitica PCR Stool Vibrio (PCR) Stl Vibrio cholerae PCR Stl Norovirus GI/GII PCR Urine Immunofixation Blood Parasites ID Cancelled 08/02/23 08/02/23 08/02/23 06:24 10:00 12:26 WBC 5.49 RBC 2.92 L Hgb 9.7 L Hct 30.2 L MCV 103.4 H MCH 33.2 MCHC 32.1 RDW Std Deviation 55.7 H RDW Coeff of Lorene 14.6 H Plt Count 133 MPV 9.3 L Immature Gran % (Auto) Neut % (Auto) Lymph % (Auto) [place] % (Auto) Eos % (Auto) Baso % (Auto) Neut # (Auto) Lymph # (Auto) [place] # (Auto) Eos # (Auto) Baso # (Auto) Immature Gran # (Auto) Absolute Nucleated RBC Nucleated RBC % (auto) Neutrophils % (Manual) Band Neutrophils % Lymphocytes % (Manual) Prolymphocyte % Reactive Lymphs % (Man) Monocytes % (Manual) Eosinophils % (Manual) Basophils % (Manual) Metamyelocytes % (Man) Myelocytes % (Man) Promyelocytes % (Man) Blast Cells % (Manual) Plasma Cell % (Manual) Other Cells % Nucleated RBC % Neutrophils # (Manual) Band Neutrophils # Total Absolute Neuts Lymphocytes # (Manual) Prolymphocyte # Reactive Lymphs # Total Abs Lymphocytes Monocytes # (Manual) Eosinophils # (Manual) Basophils # (Manual) Metamyelocytes # (Man) Myelocytes # (Manual) Promyelocytes # (Man) Blast Cells # (Man) Plasma Cell # (Manual) Other Cells # Nucleated RBCs # (Man) Hypersegmented Neuts Hyposegmented Neuts Hypogranular Neuts Large Granular Lymphs # Lrg Granular Lymphs Hairy Cells Smudge Cells Toxic Granulation Toxic Vacuolation Dohle Bodies Shasha Rods Platelet Estimate Hypogranular Platelets Giant Platelets Platelet Satelliting RBC Morphology Polychromasia Hypochromasia Poikilocytosis Basophilic Stippling Anisocytosis Microcytosis Macrocytosis Spherocytes Pappenheimer Bodies Sickle Cells Target Cells Tear Drop Cells Ovalocytes Stomatocytes Martínez-Brenas Bodies Echinocytes Acanthocytes (Spur) Rouleaux RBC Agglutinates Schistocytes Sezary Cell ABG pH ABG pCO2 ABG pO2 ABG HCO3 ABG O2 Saturation ABG Base Excess Vaibhav Test Oxygen Given Sodium 142 Potassium 3.7 Chloride 105 Carbon Dioxide 31 Anion Gap 6 BUN 48 H Creatinine 1.14 Est Cr Clr Drug Dosing 25.6 Est GFR ( Amer) 50.8 Est GFR (Non-Af Amer) 43.8 BUN/Creatinine Ratio 42.1 H Glucose 100 H POC Glucose 164 H Calcium 8.9 Magnesium 2.0 Iron 51 TIBC 380 Unsaturated IBC 329 Transferrin % Sat 13 L Ferritin 32.9 Total Bilirubin AST ALT Alkaline Phosphatase B-Natriuretic Peptide 1067 H Total Protein Albumin Globulin Albumin/Globulin Ratio Stl C. cayetanensis PCR Not Detected Stool Rotavirus A PCR Not Detected Stl Adenov F 40/41 PCR Not Detected Stool Astrovirus (PCR) Not Detected Stool Campylobacter PCR Not Detected Stl C. diff Tox B Gene Negative Cdiff Gene Stool Cryptosporidium PCR Not Detected Stl E.coli Shiga Tox PCR Not Detected Stl Enterotoxigenic E PCR Not Detected Stool EPEC (PCR) Not Detected Stool EAEC (PCR) Not Detected Stl E. histolytica PCR Not Detected Stool Giardia Lamblia PCR Not Detected Stool Salmonella PCR Not Detected Stool Sapovirus (PCR) Not Detected Stl P. shigelloides PCR Not Detected Stl Shigella/EIEC PCR Not Detected St Y.enterocolitica PCR Not Detected Stool Vibrio (PCR) Not Detected Stl Vibrio cholerae PCR Not Detected Stl Norovirus GI/GII PCR Not Detected Urine Immunofixation Blood Parasites ID Diagnostic Findings Labs reviewed from 08/02/2023 notable for improved renal function, normal potassium, normal magnesium, stable hemoglobin. Telemetry personally reviewed: AV paced. Medications Administered Current Inpatient Medications Acetaminophen (Acetaminophen 325 Mg Tab) 650 mg PO Q4H PRN PRN Reason: pain/fever Stop: 08/30/23 13:44 Last Admin: 08/02/23 08:32 Dose: 650 mg Al Hydrox/Mg Hydrox/Simethicone (Aluminum/Magnesium Susp 30 Ml Udc) 30 ml PO Q6H PRN PRN Reason: Dyspepsia Stop: 08/30/23 13:44 Albuterol (Albuterol Hfa 8 Gm Inhaler) 2 puffs INH Q6H PRN PRN Reason: SOB/Wheezing Stop: 08/30/23 13:43 Apixaban (Apixaban 2.5 Mg Tab) 2.5 mg PO BID DWAIN Stop: 08/30/23 20:59 Last Admin: 08/02/23 08:26 Dose: 2.5 mg Atorvastatin Calcium (Atorvastatin 10 Mg Tab) 10 mg PO DAILY DWAIN Stop: 08/31/23 08:59 Last Admin: 08/02/23 08:26 Dose: 10 mg Azelastine HCl (Azelastine Hcl 0.1% Nasal 200 Sprays/27,400 Mcg Btl) 1 sprays YAMILA BID DWAIN Stop: 08/30/23 20:59 Last Admin: 08/02/23 08:26 Dose: 1 sprays Buspirone HCl (Buspirone 5 Mg Tab) 5 mg PO BID DWAIN Stop: 08/30/23 20:59 Last Admin: 08/02/23 08:27 Dose: 5 mg Cyanocobalamin (Cyanocobalamin (B-12) 500 Mcg Tablet) 1,000 mcg PO QAM DWAIN Stop: 08/31/23 08:59 Last Admin: 08/02/23 08:26 Dose: 1,000 mcg Dextrose (Dextrose 50% 50 Ml Syringe) 25 - 50 ml IV UD PRN; Protocol PRN Reason: Hypoglycemia Protocol Stop: 08/31/23 12:41 Ergocalciferol (Ergocalciferol 1250 Mcg (50,000 Units) Cap) 1,250 mcg PO Q30D DWAIN Stop: 08/30/23 13:44 Last Admin: 07/31/23 17:19 Dose: 1,250 mcg Furosemide (Furosemide Inj 20 Mg/2 Ml Vial) 10 mg IV [id number] DWAIN Stop: 09/01/23 08:59 Last Admin: 08/02/23 08:33 Dose: 10 mg Glucagon (Glucagon For Inj 1 Mg Vial) 1 mg SQ UD PRN; Protocol PRN Reason: Hypoglycemia Protocol Stop: 08/31/23 12:41 Glucose (Glucose 40% Gel 15 Gm Tube) 15 - 30 gm PO UD PRN; Protocol PRN Reason: Hypoglycemia Protocol Stop: 08/31/23 12:41 Glucose (Glucose 10 Tab/Tube) 4 - 8 tab PO UD PRN; Protocol PRN Reason: Hypoglycemia Treatment Stop: 08/31/23 12:41 Iron Sucrose 300 mg/ Sodium (Chloride) 265 mls @ 176.667 mls/hr IV TODAY ONE; Protocol Stop: 08/02/23 13:59 Last Admin: 08/02/23 13:02 Dose: 176.7 mls/hr Insulin Aspart (Insulin Aspart Per Unit Charge) 0 units SC ACHS DWAIN Stop: 08/31/23 13:04 Last Admin: 08/02/23 13:01 Dose: 2 units Miscellaneous (Carbohydrates For Hypoglycemia ) 15 - 30 gm PO UD PRN PRN Reason: Hypoglycemia Protocol Stop: 08/31/23 12:41 Ondansetron HCl (Ondansetron Inj 2 Mg/Ml 2 Ml Vial) 4 mg IV Q6H PRN PRN Reason: Nausea Stop: 08/30/23 13:44 Pantoprazole Sodium (Pantoprazole 40 Mg Tab) 40 mg PO DAILY DWAIN Stop: 08/31/23 08:59 Last Admin: 08/02/23 08:26 Dose: 40 mg Potassium Chloride (Potassium Chloride 10 Meq Tabcr) 30 meq PO DAILY DWAIN Stop: 08/31/23 08:59 Last Admin: 08/02/23 08:26 Dose: 30 meq PG Care Time/CCT Total # of Minutes Spent Total Time Spent with Patient: Total time spent is greater than 50% in coordination of care (as documented) at patient's floor/unit and/or counseling patient: Coding Level of Care Code 38752 SUB INP/OBS CARE MIN Diagnoses Acute HFrEF (heart failure with reduced ejection fraction) I50.21 Cardiomyopathy I42.9 Pulmonary hypertension I27.20 Paroxysmal atrial fibrillation I48.0 Tachy-fermín syndrome I49.5 Elevated troponin R79.89 Pacemaker Z95.0 Aortic stenosis I35.0 Pericardial effusion I31.39
[2023-08-03 07:01] LABS: Hemoglobin 9.7 g/dl (12.0-16.0); Mean Corpuscular Hemoglobin 33.2 pg (25.0-34.0); Mean Corpuscular Hgb Conc 32.3 g/dL (32.0-36.0); Mean Corpuscular Volume 102.7 fL (80.0-100.0); Mean Platelet Volume 9.9 fL (9.4-12.4); Platelet Count 128 K/uL (130-400); RDW Coefficient of Variation 14.7 % (11.5-14.5); RDW Standard Deviation 55.1 fL (36.4-46.3); Red Blood Count 2.92 M/uL (4.20-5.40); White Blood Count 4.31 K/ul (4.8-10.8)
[2023-08-03 07:17] LABS: Albumin Globulin Ratio 1.6 (0.9-2); Albumin Level 3.4 gm/dl (3.4-5.0); BUN Creatinine Ratio 43.9 (10-20); Bilirubin,Total 1.1 mg/dl (0.2-1.0); Calcium 8.9 mg/dl (8.6-10.3); Creatinine Clr Calc Pharmacy 24.1 ml/min; Est GFR (African American) 50.8 ml/min; Est GFR (Non-African American) 43.8 ml/min; Globulin 2.1 gm/dl (2.5-4.0); Potassium 4.1 mmol/L (3.5-5.1); Total Protein 5.5 gm/dl (6.0-8.3)
--- NOTE | 2023-08-03 10:05 | XRay Report ---
TWO VIEW CHEST CLINICAL HISTORY: Follow-up congestive failure. FINDINGS: AP and lateral chest radiographs are compared to study dated 08/01/2023. A 2-lead cardiac pac emaker is unchanged in position and partially obscures the left mid chest. The heart is enlarged noti ng atherosclerotic calcification of the thoracic aorta. Pulmonary vascular congestion persists. There are small pleural effusions with dependent consolidation. There is no pneumothorax. The skeletal str uctures are osteopenic. The bony thorax appears intact. IMPRESSION: 1. Cardiomegaly and cardiac pacemaker with persistent pulmonary vascular congestion. 2. Small pleural effusions with dependent consolidation. ACT 112: Negative or not required by law. Electronically signed by: Reese Lincoln M.D. 08/03/2023 10:03 AM
--- NOTE | 2023-08-03 10:32 | Hospitalist Progress Note ---
Date of Service August 03, 2023 Assessment & Plan (1) Acute on chronic HFrEF (heart failure with reduced ejection fraction): Plan: Acute on chronic heart failure with REDUCED EF BNP 1285, CXR w/ vascular congestion and worsening LE edema prior to admission Cardiology consulted - continue lasix 10mg IV BID, consider spironolactone after inital loop diuretic however patient has been hypotensive - workup for amyloidosis is pending (concerns for based on echo images) - kappa/lambda light chains, serum immunofixation and urine immunofixation ordered and pending -- will need f/u - no entresto/teir/arb as can potentially cause more harm --> can consider adding based on results of amyloidosis workup - Recommend outpatient cardiac MRI - monitor pericardial effusion - stopped sotalol, consider amiodarone if needed for afib ECHO w/ LVEF 35-40%, global hypokinesis. Severe concentric LVH. Sclerotic aortic valve with possible mild aortic stenosis. Moderate pericardial effusion. Monitoring daily weights, I&O - Weights 53.6kg on admission --> now 47.9kg (pt reports dry weight is around 53kg) Supplemental O2 titration as needed Overnight pulse ox study - 30 minutes of desaturation, will likely need O2 at night PT/OT - recommending home with HH (2) Anemia: Plan: Hemoglobin 9.8 on admission (no prior for comparison) - patient reports significant weight loss, no bloody or black stools - Iron studies also checked and [id number], Venofer IV x 1 received - fecal occult, ordered, uncollected - B12 border line - receiving PO supplementation while here Will defer additional work up to PCP Will continue to monitor CBC (3) Cardiomyopathy: Plan: Myocardial perfusion study in 2023 unremarkable. Significant left ventricular hypertrophy with speckled appearance on echo, concerning for amyloidosis (also with aortic stenosis and pericardial effusion) - pending workup as above (4) Paroxysmal atrial fibrillation: Plan: Sotalolol discontinued given HF w/ reduced EF and significant LVH. Consideration for amiodarone if needed Continues on eliquis 2.5mg BID, appropriately dosed Also with Tachy fermín syndrome - has dual chamber pacemaker - has appointment scheduled with EP (5) Pericardial effusion: Plan: Seems to be chronic over the past several months. No suggestion of cardiac tamponade currently. Diuretics as outlined and continue to monitor (6) CKD (chronic kidney disease) stage 3, GFR 30-59 ml/min: Plan: as above, lasix at lower dose and will monitor. 24hr urine study as above for amyloid renal dose meds/avoid nephrotoxins as able (7) Acquired lymphedema: Plan: Chronic lymphedema, reported worsening prior to admission elevation rec'd, diuretic as above compression to be considered (8) DM type 2 (diabetes mellitus, type 2): Plan: A1c 6.0, pre-DM. Not on any meds at baseline BSG AC/HS added, sliding scale. (9) Pulmonary hypertension: Plan: Pulmonary hypertension: Likely due to heart failure. Diurese as above. Overnight pulse ox with 30 mins of desaturations - recommend outpatient sleep study Mildly dilated thoracic ascending aorta: --Avoid strenuous lifting for which the Valsalva maneuver is required. Annual surveillance. Plan continued inpatient stay, appreciate cardiology recs/assistance, attempting to wean O2 updated at bedside 08/02 - declined HF clinic follow up at this time Admission and Anticipated Discharge Date Admission Date: July 31, 2023 Subjective Patient seen late this morning. Requiring oxygen at this time. Overall feeling weak. Does not think she has been out of bed much No IS in the room Revisited later when was present - all questions answered. Decline HF clinic follow up at this time. Tele - paced 60-70s Review of Systems Review of Systems: All systems reviewed & are unremarkable except as noted in Subjective Physical Exam Physical Exam: General: NAD, VS as above Resp: normal respiratory effort, diminished/crackles in the bases - on 2L O2 CV: irregular, no murmur, Abd: normal bowel sounds, non tender, no hepatosplenomegaly Extremities: Moves all extremities, +1 pitting LE edema Neuro: A&O x3, Skin: intact, no lesions noted Results & Data Results & Data Vital Signs (Past 12 Hours) Vital Signs Temp Pulse Pulse Pulse Resp BP BP 08/03/23 07:42 36.4 C L 70 20 101/64 08/03/23 07:18 71 08/03/23 07:15 08/03/23 04:07 79 08/03/23 03:40 36.3 C L 70 18 110/69 08/03/23 00:40 73 08/02/23 22:50 70 08/02/23 22:45 36.3 C L 70 18 88/47 L Pulse Ox Pulse Ox O2 Del Method O2 Del Method O2 Flow Rate 08/03/23 07:42 87 L Room Air 08/03/23 07:18 08/03/23 07:15 Nasal Cannula 2 08/03/23 04:07 97 Room Air 08/03/23 03:40 91 Room Air 08/03/23 00:40 91 Room Air 08/02/23 22:50 08/02/23 22:45 91 Room Air Laboratory Results CBC, chemistry, blood cultures reviewed Diagnostic Findings CXR reviewed PG Care Time/CCT Total # of Minutes Spent Total Time Spent with Patient: Total time spent is greater than 50% in coordination of care (as documented) at patient's floor/unit and/or counseling patient: Coding Level of Care Code 07693 SUB INP/OBS CARE 3/50MIN Diagnoses Acute on chronic HFrEF (heart failure with reduced ejection fraction) I50.23 Anemia D64.9 Cardiomyopathy I42.9 Paroxysmal atrial fibrillation I48.0 Pericardial effusion I31.39 CKD (chronic kidney disease) stage 3, GFR 30-59 ml/min N18.30 Acquired lymphedema I89.0 DM type 2 (diabetes mellitus, type 2) E11.9 Pulmonary hypertension I27.20
--- NOTE | 2023-08-03 16:20 | Cardiology Progress Note ---
Date of Service August 03, 2023 Assessment & Plan (1) Acute HFrEF (heart failure with reduced ejection fraction): (2) Cardiomyopathy: (3) Pulmonary hypertension: (4) Paroxysmal atrial fibrillation: (5) Tachy-fermín syndrome: (6) Elevated troponin: (7) Pacemaker: (8) Aortic stenosis: (9) Pericardial effusion: Plan ASSESSMENT/PLAN: 1. Acute heart failure with reduced EF: Volume status improving. Still mildly hypervolemic. NYHA class III. Recommend net negative fluid balance of approximately 1 L daily if able/tolerated. Strict I's and O's. Low-sodium diet. Daily weights. Lasix has been reduced to 10 mg twice daily given azotemic labs on 08/01/23. Concern for amyloidosis based on echo images. [place]/lambda light chains, serum immunofixation and urine immunofixation pending. Recommend outpatient cardiac MRI if able. Given this concern, no Entresto/VERENICE inhibitor/ARB. Standard heart failure medications would potentially cause more harm. If found to not have amyloidosis, would consider introducing these medications. Diuresis would be the mainstay therapy. Considered spironolactone but had issues with hypotension on 08/02/2023 and will hold off for now. 2. Cardiomyopathy: Significant left ventricular hypertrophy with speckled appearance on echo, concerning for amyloidosis (also with aortic stenosis and pericardial effusion). Plan as above. ICD for primary prevention is not currently indicated but if LV systolic function further declines, would consider if deemed appropriate by EP. Hypervolemic as above. Myocardial perfusion study in 2023 unremarkable. No urgent indication for invasive ischemic evaluation. 3. Pericardial effusion: Seems to be chronic over the past several months. No suggestion of cardiac tamponade currently. Monitor for now. 4. Pulmonary hypertension: Likely due to heart failure. Diurese as above. 5. Paroxysmal atrial fibrillation: On sotalol as per her other outside providers. Now, given heart failure with reduced EF and significant LVH, sotalol discontinued on 08/01/2023. Atrial fibrillation was reportedly difficult to control during her [place] hospitalization in 2023. After some washout, could consider amiodarone if needed. Currently AV paced. Continue anticoagulation for stroke risk reduction. Monitor CBC. On Eliquis 2.5 mg twice daily based on age and weight. 6. Tachybradycardia syndrome s/p dual-chamber pacemaker: Has been referred by her [facility] bilingual counter sales retail to [facility] cleaning matron, Dr. Kuhn, to manage her pacemaker. Follow-up with the EP as scheduled. 7. Elevated troponin: High-sensitivity troponin minimally elevated. Likely due to demand ischemia in the setting of heart failure. Recent negative myocardial perfusion study in 2023. She did not present with acute coronary syndrome. 8. Aortic stenosis: Nonsevere. Can be monitored as an outpatient. 9. Mildly dilated thoracic ascending aorta: Avoid strenuous lifting for which the Valsalva maneuver is required. Annual surveillance. 10. Disposition: Cardiology will continue to follow. On discharge, follow-up with primary bilingual counter sales retail through [facility]. Her primary bilingual counter sales retail cannot manage her pacemaker and they have an appointment to establish care with Dr. Kuhn for device management. As she will be following up with Dr. Kuhn, can offer heart failure program if she is willing. Patient care communicated with primary hospitalist service, Martina Choudhary PA-C. Highly complex medical issues. Admission and Anticipated Discharge Date Admission Date: July 31, 2023 Subjective Patient seen earlier today. She denies chest pain, syncope, near syncope, palpitations, or bleeding. She is much more awake today. Breathing improved. She was alone in her hospital room. Physical Exam Physical Exam: Gen.: No acute distress. Alert. HEENT: Anicteric sclera. Neck: No significant JVD appreciated. Cardiac: No ventricular heave. Regular. Normal S1-S2. 2/6 systolic murmur. Pulmonary: Decreased breath sounds, but otherwise clear to auscultation bilaterally. Abdomen: Soft, nontender, nondistended, with normoactive bowel sounds. No bruits noted. Extremities: 2+ radial pulses bilaterally. 2+ posterior tibialis pulses bilaterally. 1+ left lower extremity pitting edema in dependent areas. Trace right lower extremity edema. No cyanosis. Psychiatric: Affect appears appropriate. Results & Data Vital Signs (Past 12 Hours) Vital Signs Temp Pulse Pulse Resp BP Pulse Ox Pulse Ox 08/03/23 15:29 72 08/03/23 14:03 93 08/03/23 13:35 95 08/03/23 11:41 36.4 C L 70 18 112/73 99 08/03/23 07:42 36.4 C L 70 20 101/64 87 L 08/03/23 07:18 71 08/03/23 07:15 Pulse Ox O2 Del Method O2 Flow Rate O2 Flow Rate O2 Flow Rate 08/03/23 15:29 08/03/23 14:03 87 L 0 0 08/03/23 13:35 08/03/23 11:41 Nasal Cannula 2 08/03/23 07:42 Room Air 08/03/23 07:18 08/03/23 07:15 Nasal Cannula 2 Intake & Output 08/01/23 08/02/23 08/03/23 08/04/23 06:59 06:59 06:59 06:59 Intake Total 1545 / 1545 675 / 675 535 / 535 Output Total 900 / 900 2402 / 2402 1250 / 1250 Balance 645 / 645 -1727 / -1727 -715 / -715 Weight 114 lb 10.246 oz 120 lb 2.431 oz 105 lb 9.623 oz Laboratory Results Laboratory Results - last 24 hr 08/02/23 08/02/23 08/03/23 17:11 20:15 06:06 WBC 4.31 L RBC 2.92 L Hgb 9.7 L Hct 30.0 L MCV 102.7 H MCH 33.2 MCHC 32.3 RDW Std Deviation 55.1 H RDW Coeff of Lorene 14.7 H Plt Count 128 L MPV 9.9 Sodium 140 Potassium 4.1 Chloride 105 Carbon Dioxide 29 Anion Gap 6 BUN 50 H Creatinine 1.14 Est Cr Clr Drug Dosing 24.1 Est GFR ( Amer) 50.8 Est GFR (Non-Af Amer) 43.8 BUN/Creatinine Ratio 43.9 H Glucose 91 POC Glucose 99 129 H Calcium 8.9 Magnesium 2.0 Total Bilirubin 1.1 H AST 15 ALT 9 Alkaline Phosphatase 65 Total Protein 5.5 L Albumin 3.4 Globulin 2.1 L Albumin/Globulin Ratio 1.6 08/03/23 08/03/23 07:59 12:14 WBC RBC Hgb Hct MCV MCH MCHC RDW Std Deviation RDW Coeff of Lorene Plt Count MPV Sodium Potassium Chloride Carbon Dioxide Anion Gap BUN Creatinine Est Cr Clr Drug Dosing Est GFR ( Amer) Est GFR (Non-Af Amer) BUN/Creatinine Ratio Glucose POC Glucose 113 H 134 H Calcium Magnesium Total Bilirubin AST ALT Alkaline Phosphatase Total Protein Albumin Globulin Albumin/Globulin Ratio Diagnostic Findings Labs reviewed from 08/03/2023 notable for stable anemia, stable renal function, normal potassium Telemetry personally reviewed: AV paced. Medications Administered Current Inpatient Medications Acetaminophen (Acetaminophen 325 Mg Tab) 650 mg PO Q4H PRN PRN Reason: pain/fever Stop: 08/30/23 13:44 Last Admin: 08/02/23 18:12 Dose: 650 mg Al Hydrox/Mg Hydrox/Simethicone (Aluminum/Magnesium Susp 30 Ml Udc) 30 ml PO Q6H PRN PRN Reason: Dyspepsia Stop: 08/30/23 13:44 Albuterol (Albuterol Hfa 8 Gm Inhaler) 2 puffs INH Q6H PRN PRN Reason: SOB/Wheezing Stop: 08/30/23 13:43 Apixaban (Apixaban 2.5 Mg Tab) 2.5 mg PO BID DWAIN Stop: 08/30/23 20:59 Last Admin: 08/03/23 09:21 Dose: 2.5 mg Atorvastatin Calcium (Atorvastatin 10 Mg Tab) 10 mg PO DAILY DWAIN Stop: 08/31/23 08:59 Last Admin: 08/03/23 09:21 Dose: 10 mg Azelastine HCl (Azelastine Hcl 0.1% Nasal 200 Sprays/27,400 Mcg Btl) 1 sprays YAMILA BID DWAIN Stop: 08/30/23 20:59 Last Admin: 08/03/23 09:21 Dose: 1 sprays Buspirone HCl (Buspirone 5 Mg Tab) 5 mg PO BID DWAIN Stop: 08/30/23 20:59 Last Admin: 08/03/23 09:21 Dose: 5 mg Cyanocobalamin (Cyanocobalamin (B-12) 500 Mcg Tablet) 1,000 mcg PO QAM DWAIN Stop: 08/31/23 08:59 Last Admin: 08/03/23 09:23 Dose: 1,000 mcg Dextrose (Dextrose 50% 50 Ml Syringe) 25 - 50 ml IV UD PRN; Protocol PRN Reason: Hypoglycemia Protocol Stop: 08/31/23 12:41 Ergocalciferol (Ergocalciferol 1250 Mcg (50,000 Units) Cap) 1,250 mcg PO Q30D DWAIN Stop: 08/30/23 13:44 Last Admin: 07/31/23 17:19 Dose: 1,250 mcg Furosemide (Furosemide Inj 20 Mg/2 Ml Vial) 10 mg IV [id number] DWAIN Stop: 09/01/23 08:59 Last Admin: 08/03/23 09:23 Dose: 10 mg Glucagon (Glucagon For Inj 1 Mg Vial) 1 mg SQ UD PRN; Protocol PRN Reason: Hypoglycemia Protocol Stop: 08/31/23 12:41 Glucose (Glucose 40% Gel 15 Gm Tube) 15 - 30 gm PO UD PRN; Protocol PRN Reason: Hypoglycemia Protocol Stop: 08/31/23 12:41 Glucose (Glucose 10 Tab/Tube) 4 - 8 tab PO UD PRN; Protocol PRN Reason: Hypoglycemia Treatment Stop: 08/31/23 12:41 Insulin Aspart (Insulin Aspart Per Unit Charge) 0 units SC ACHS DWAIN Stop: 08/31/23 13:04 Last Admin: 08/03/23 13:31 Dose: 1 units Miscellaneous (Carbohydrates For Hypoglycemia ) 15 - 30 gm PO UD PRN PRN Reason: Hypoglycemia Protocol Stop: 08/31/23 12:41 Ondansetron HCl (Ondansetron Inj 2 Mg/Ml 2 Ml Vial) 4 mg IV Q6H PRN PRN Reason: Nausea Stop: 08/30/23 13:44 Pantoprazole Sodium (Pantoprazole 40 Mg Tab) 40 mg PO DAILY DWAIN Stop: 08/31/23 08:59 Last Admin: 08/03/23 09:22 Dose: 40 mg Potassium Chloride (Potassium Chloride 10 Meq Tabcr) 30 meq PO DAILY DWAIN Stop: 08/31/23 08:59 Last Admin: 08/03/23 09:21 Dose: 30 meq PG Care Time/CCT Total # of Minutes Spent Total Time Spent with Patient: Total time spent is greater than 50% in coordination of care (as documented) at patient's floor/unit and/or counseling patient: Coding Level of Care Code 45083 SUB INP/OBS CARE 3/50MIN Diagnoses Acute HFrEF (heart failure with reduced ejection fraction) I50.21 Cardiomyopathy I42.9 Pulmonary hypertension I27.20 Paroxysmal atrial fibrillation I48.0 Tachy-fermín syndrome I49.5 Elevated troponin R79.89 Pacemaker Z95.0 Aortic stenosis I35.0 Pericardial effusion I31.39
[2023-08-04] MEDS: MELATONIN 3 MG TAB PO PRN (00:42)
--- NOTE | 2023-08-04 10:34 | Cardiology Progress Note ---
Date of Service August 04, 2023 Assessment & Plan (1) Acute HFrEF (heart failure with reduced ejection fraction): (2) Cardiomyopathy: (3) Pulmonary hypertension: (4) Paroxysmal atrial fibrillation: (5) Tachy-fermín syndrome: (6) Elevated troponin: (7) Pacemaker: (8) Aortic stenosis: (9) Pericardial effusion: Plan ASSESSMENT/PLAN: 1. Acute heart failure with reduced EF: She does not appear to be significantly hypervolemic at this point. Can discontinue intravenous Lasix. Lasix 40 mg p.o. daily tomorrow. NYHA class III. Strict I's and O's. Low-sodium diet. Daily weights. Concern for amyloidosis based on echo images. Urine immunofixation with free monoclonal kappa band. Serum studies are pending. Recommend outpatient cardiac MRI if able. Given this concern, no Entresto/VERENICE inhibitor/ARB. Standard heart failure medications would potentially cause more harm. Diuresis would be the mainstay therapy. Recommend referral to cardiac amyloid specialist in the outpatient setting. No spironolactone due to hypotension. 2. Cardiomyopathy: Significant left ventricular hypertrophy with speckled appearance on echo, concerning for amyloidosis (also with aortic stenosis and pericardial effusion). Urine immunofixation with free monoclonal kappa band. 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 Further studies are still pending. Plan as above. ICD for primary prevention is not currently indicated but if LV systolic function further declines, would consider if deemed appropriate by EP. Myocardial perfusion study in 2023 unremarkable. No urgent indication for invasive ischemic evaluation. 3. Pericardial effusion: Seems to be chronic over the past several months. No suggestion of cardiac tamponade currently. Monitor for now. 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 4. Pulmonary hypertension: Likely due to heart failure. Diurese as above. 5. Paroxysmal atrial fibrillation: On sotalol as per her other outside providers. Now, given heart failure with reduced EF and significant LVH, sotalol discontinued on 08/01/2023. Atrial fibrillation was reportedly difficult to control during her [place] hospitalization in 2023. After some washout, could consider amiodarone if needed. Currently AV paced. Continue anticoagul ation for stroke risk reduction. Monitor CBC. On Eliquis 2.5 mg twice daily based on age and weight. 6. Tachybradycardia syndrome s/p dual-chamber pacemaker: Has been referred by her [facility] lumber sorter to [facility] caving guide, Dr. Kuhn, to manage her pacemaker. Follow-up with the EP as scheduled. 7. Elevated troponin: High-sensitivity troponin minimally elevated. Likely due to demand ischemia in the setting of heart failure. Recent negative myocardial perfusion study in 2023. She did not present with acute coronary syndrome. 8. Aortic stenosis: Nonsevere. Can be monitored as an outpatient. 9. Mildly dilated thoracic ascending aorta: Avoid strenuous lifting for which the Valsalva maneuver is required. Annual surveillance. 10. Disposition: Poor prognosis given suspicion for cardiac amyloidosis although further studies remain pending. Would recommend referral as an outpatient to cardiac amyloid specialist. If confirmed once other studies completed, would recommend palliative care consultation, which can be done in the outpatient setting. On discharge, recommend very close follow-up with primary lumber sorter through [facility]. Her primary lumber sorter cannot manage her pacemaker and they have an appointment to establish care with Dr. Kuhn for device management. As she will be following up with Dr. Kuhn, can offer heart failure program if she is willing. Patient care communicated with primary hospitalist service, Dr. Ness. Call out to her primary lumber sorter, Bailey ZAMBRANO, to update her and to help arrange appropriate follow up. Highly complex medical issues. Admission and Anticipated Discharge Date Admission Date: July 31, 2023 Subjective Patient seen this morning. She believes that her breathing is back to baseline. She has dyspnea on exertion but denies orthopnea, shortness of breath at rest, chest pain, syncope, near syncope, palpitations. Her edema has improved and she believes it is at baseline. She would like to go home today. She was alone in her hospital room. Physical Exam Physical Exam: Gen.: No acute distress. Alert. HEENT: Anicteric sclera. Neck: No significant JVD appreciated. Cardiac: No ventricular heave. Regular. Normal S1-S2. 2/6 systolic murmur. Pulmonary: Decreased breath sounds, but otherwise clear to auscultation bilaterally. Abdomen: Soft, nontender, nondistended, with normoactive bowel sounds. No bruits noted. Extremities: 2+ radial pulses bilaterally. 2+ posterior tibialis pulses bilaterally. 1+ left lower extremity pitting edema to a few inches above the ankle. Trace right lower extremity edema. No cyanosis. Psychiatric: Affect appears appropriate. Results & Data Vital Signs (Past 12 Hours) Vital Signs Temp Pulse Pulse Resp BP BP Pulse Ox 08/04/23 10:24 36.5 C 71 17 88/58 L 95 08/04/23 07:51 36.4 C L 70 17 103/68 93 08/04/23 07:09 70 08/04/23 03:30 36.4 C L 70 18 113/77 92 08/04/23 00:22 36.7 C 73 18 99/68 L 95 O2 Del Method 08/04/23 10:24 Room Air 08/04/23 07:51 Room Air 08/04/23 07:09 08/04/23 03:30 Room Air 08/04/23 00:22 Room Air Intake & Output 08/02/23 08/03/23 08/04/23 08/05/23 06:59 06:59 06:59 06:59 Intake Total 675 / 675 535 / 535 1210 / 1210 Output Total 2402 / 2402 1250 / 1250 2049 / 2049 375 / 375 Balance -1727 / -1727 -715 / -715 -840 / -840 -375 / -375 Weight 120 lb 2.431 oz 105 lb 9.623 oz 105 lb 6.095 oz Laboratory Results Laboratory Results - last 24 hr 08/01/23 08/03/23 08/03/23 21:06 12:14 17:16 POC Glucose 134 H 134 H Urine Immunofixation SEE NOTE 08/03/23 08/04/23 20:11 08:10 POC Glucose 152 H 105 H Urine Immunofixation Diagnostic Findings Urine immunofixation reports free monoclonal kappa band. Telemetry personally reviewed: Atrial paced. Medications Administered Current Inpatient Medications Acetaminophen (Acetaminophen 325 Mg Tab) 650 mg PO Q4H PRN PRN Reason: pain/fever Stop: 08/30/23 13:44 Last Admin: 08/04/23 00:41 Dose: 650 mg Al Hydrox/Mg Hydrox/Simethicone (Aluminum/Magnesium Susp 30 Ml Udc) 30 ml PO Q6H PRN PRN Reason: Dyspepsia Stop: 08/30/23 13:44 Albuterol (Albuterol Hfa 8 Gm Inhaler) 2 puffs INH Q6H PRN PRN Reason: SOB/Wheezing Stop: 08/30/23 13:43 Apixaban (Apixaban 2.5 Mg Tab) 2.5 mg PO BID [facility] Stop: 08/30/23 20:59 Last Admin: 08/04/23 08:04 Dose: 2.5 mg Atorvastatin Calcium (Atorvastatin 10 Mg Tab) 10 mg PO DAILY DWAIN Stop: 08/31/23 08:59 Last Admin: 08/04/23 08:05 Dose: 10 mg Azelastine HCl (Azelastine Hcl 0.1% Nasal 200 Sprays/27,400 Mcg Btl) 1 sprays YAMILA BID [facility] Stop: 08/30/23 20:59 Last Admin: 08/04/23 08:04 Dose: 1 sprays Buspirone HCl (Buspirone 5 Mg Tab) 5 mg PO BID [facility] Stop: 08/30/23 20:59 Last Admin: 08/04/23 08:04 Dose: 5 mg Cyanocobalamin (Cyanocobalamin (B-12) 500 Mcg Tablet) 1,000 mcg PO QAM [facility] Stop: 08/31/23 08:59 Last Admin: 08/04/23 08:05 Dose: 1,000 mcg Dextrose (Dextrose 50% 50 Ml Syringe) 25 - 50 ml IV UD PRN; Protocol PRN Reason: Hypoglycemia Protocol Stop: 08/31/23 12:41 Ergocalciferol (Ergocalciferol 1250 Mcg (50,000 Units) Cap) 1,250 mcg PO Q30D [facility] Stop: 08/30/23 13:44 Last Admin: 07/31/23 17:19 Dose: 1,250 mcg Furosemide (Furosemide Inj 20 Mg/2 Ml Vial) 10 mg IV BID17 DWAIN Stop: 09/01/23 08:59 Last Admin: 08/04/23 08:04 Dose: 10 mg Glucagon (Glucagon For Inj 1 Mg Vial) 1 mg SQ UD PRN; Protocol PRN Reason: Hypoglycemia Protocol Stop: 08/31/23 12:41 Glucose (Glucose 40% Gel 15 Gm Tube) 15 - 30 gm PO UD PRN; Protocol PRN Reason: Hypoglycemia Protocol Stop: 08/31/23 12:41 Glucose (Glucose 10 Tab/Tube) 4 - 8 tab PO UD PRN; Protocol PRN Reason: Hypoglycemia Treatment Stop: 08/31/23 12:41 Insulin Aspart (Insulin Aspart Per Unit Charge) 0 units SC ACHS DWAIN Stop: 08/31/23 13:04 Last Admin: 08/04/23 09:14 Dose: 1 units Melatonin (Melatonin 3 Mg Tab) 3 mg PO HS PRN PRN Reason: Sleep Stop: 09/02/23 23:24 Last Admin: 08/04/23 00:42 Dose: 3 mg Miscellaneous (Carbohydrates For Hypoglycemia ) 15 - 30 gm PO UD PRN PRN Reason: Hypoglycemia Protocol Stop: 08/31/23 12:41 Ondansetron HCl (Ondansetron Inj 2 Mg/Ml 2 Ml Vial) 4 mg IV Q6H PRN PRN Reason: Nausea Stop: 08/30/23 13:44 Pantoprazole Sodium (Pantoprazole 40 Mg Tab) 40 mg PO DAILY DWAIN Stop: 08/31/23 08:59 Last Admin: 08/04/23 08:05 Dose: 40 mg Potassium Chloride (Potassium Chloride 10 Meq Tabcr) 30 meq PO DAILY DWAIN Stop: 08/31/23 08:59 Last Admin: 08/04/23 08:05 Dose: 30 meq PG Care Time/CCT Total # of Minutes Spent Total Time Spent with Patient: Total time spent is greater than 50% in coordination of care (as documented) at patient's floor/unit and/or counseling patient: Coding Level of Care Code 36035 SUB INP/OBS CARE 3/50MIN Diagnoses Acute HFrEF (heart failure with reduced ejection fraction) I50.21 Cardiomyopathy I42.9 Pulmonary hypertension I27.20 Paroxysmal atrial fibrillation I48.0 Tachy-fermín syndrome I49.5 Elevated troponin R79.89 Pacemaker Z95.0 Aortic stenosis I35.0 Pericardial effusion I31.39
[2023-08-04 11:31] LABS: BUN Creatinine Ratio 38.7 (10-20); Calcium 9.2 mg/dl (8.6-10.3); Creatinine Clr Calc Pharmacy 25.9 ml/min; Est GFR (African American) 55.4 ml/min; Est GFR (Non-African American) 47.8 ml/min; Potassium 3.8 mmol/L (3.5-5.1)
[2023-08-04] MEDS: POLYETHYLENE (MIRALAX) 17 GM PACK PO PRN (11:49)
--- NOTE | 2023-08-04 13:47 | Discharge Summary ---
Discharge Summary Date of Service August 04, 2023 Principal Dx & Hospital Course #1 = Principal Diagnosis (1) Acute on chronic HFrEF (heart failure with reduced ejection fraction): Acute on chronic heart failure with REDUCED EF BNP 1285, CXR w/ vascular congestion and worsening LE edema prior to admission Cardiology consulted - lasix 40mg PO daily (unable to add spironolactone 2/2 hypotension) - workup for amyloidosis is pending (concerns for based on echo images) - kappa/lambda light chains, serum immunofixation and urine immunofixation ordered and pending -- will need f/u - no entresto/teri/arb as can potentially cause more harm --> can consider adding based on results of amyloidosis workup - Recommend outpatient cardiac MRI - monitor pericardial effusion - stopped sotalol, consider amiodarone if needed for afib ECHO w/ LVEF 35-40%, global hypokinesis. Severe concentric LVH. Type 3 diastolic dysfunction. Sclerotic aortic valve with possible mild aortic stenosis. Moderate pericardial effusion. Monitoring daily weights, I&O - Weights 53.6kg on admission --> now 47.9kg (pt reports dry weight is around 53kg) Supplemental O2 titration as needed Overnight pulse ox study - 30 minutes of desaturation --> home O2 arranged PT/OT - recommending home with HH Discharge home with today with close cardiac follow up - has a disc with ECHO images to bring to her cardiology appointment (2) Anemia: Hemoglobin 9.8 on admission (no prior for comparison) - patient reports significant weight loss, no bloody or black stools - Iron studies also checked and [id number], Venofer IV x 1 received - fecal occult, ordered, uncollected - B12 border line - received PO supplementation while here Will defer additional work up to PCP Small blood per rectum day of discharge not with stool- Anusol BID x 2 weeks (3) Cardiomyopathy: Myocardial perfusion study in 2023 unremarkable. Significant left ventricular hypertrophy with speckled appearance on echo, concerning for amyloidosis (also with aortic stenosis and pericardial effusion) - pending workup as above (4) Paroxysmal atrial fibrillation: Sotalolol discontinued given HF w/ reduced EF and significant LVH. Consideration for amiodarone if needed Continues on eliquis 2.5mg BID, appropriately dosed Also with Tachy fermín syndrome - has dual chamber pacemaker - has appointment scheduled with EP (5) Pericardial effusion: Seems to be chronic over the past several months. No suggestion of cardiac tamponade currently. Diuretics as outlined and continue to monitor (6) CKD (chronic kidney disease) stage 3, GFR 30-59 ml/min: 24hr urine study as above for amyloid renal dose meds/avoid nephrotoxins as able (7) Acquired lymphedema: Chronic lymphedema, reported worsening prior to admission elevation rec'd, diuretic as above (8) DM type 2 (diabetes mellitus, type 2): A1c 6.0, pre-DM. Not on any meds at baseline received SSI while inpatient Defer initiation of diabetic therapy to PCP, however suspect this will not be needed (9) Pulmonary hypertension: Pulmonary hypertension: Likely due to heart failure. Diurese as above. Overnight pulse ox with 30 mins of desaturations - recommend outpatient sleep study Mildly dilated thoracic ascending aorta: --Avoid strenuous lifting for which the Valsalva maneuver is required. Annual surveillance. Plan Dispo: discharge to home with HH today Close follow up with cardiology - has echo on disc Notes For Next Care Provider admitted with CHF exacerbation - suspicion for amyloidosis, testing pending. Recommend outpatient cardiac MRI Medication Changes From Visit stop sotalol increase lasix to 40mg anusol BID x 2 weeks Admission HPI Per Admitting Provider This is a 83-year-old female with past medical history significant for hypertension CKD stage III, diabetes mellitus type 2, GERD, osteoarthritis, lymphedema, atrial fibrillation status post pacemaker, she is chronically on Eliquis, recent history of pericardial effusion she was treated with colchicine which is discontinued. Patient travels between [place] and [place], cardiac care provided at [facility] , had a prolonged admission in [place], due to to CHF atrial fibrillation, pacemaker placed in April 2023, she was treated for CHF, she is currently on sotalol and Eliquis, furosemide , her recent echo her EF is more than 75%, moderate concentric LVH, mild aortic stenosis, mild to moderate tricuspid regurgitation. Today patient came to the hospital due to to nausea vomiting and abdominal pain, her chews tobacco and speeds in booster container, she started to blister and drank it, became nauseous afterward. In the ER she is no longer nauseous, after she received IV Zofran, she was noticed to have an elevated BNP, pulmonary congestion on the chest x- ray, she reports increased swelling of the lower extremities shortness of breath, denies chest pain. Patient reports losing over 35 pounds, but did not have a recent endoscopy or colonoscopy. Does not have a good appetite, denies seeing any bloody or black stools, she is anemic, reports feeling cold all the time. Discharge Exam General: NAD, VS as above Resp: normal respiratory effort, diminished in the bases but improved from yesterday CV: irregular, no murmur, Abd: normal bowel sounds, non tender, no hepatosplenomegaly Extremities: Moves all extremities, non-pitting LE edema Neuro: A&O x3, Skin: intact, no lesions noted Updated Medication List Medication Instructions Recorded Confirmed Type albuterol sulfate 90 mcg/actuation 2 puff inhalation Q6H PRN 07/31/23 07/31/23 History aerosol inhaler SOB/Wheezing apixaban 2.5 mg tablet (Eliquis) 2.5 mg PO BID 07/31/23 07/31/23 History atorvastatin 10 mg tablet 10 mg PO DAILY 07/31/23 07/31/23 History azelastine 137 mcg (0.1 %) nasal 1 spray intranasal BID 07/31/23 07/31/23 History spray aerosol buspirone 5 mg tablet 5 mg PO BID 07/31/23 07/31/23 History ergocalciferol (vitamin D2) 1,250 50,000 unit PO MONTHLY 07/31/23 07/31/23 History mcg (50,000 unit) capsule omeprazole 20 mg capsule,delayed 20 mg PO DAILY 07/31/23 07/31/23 History release potassium chloride 10 mEq 30 meq PO DAILY 07/31/23 07/31/23 History capsule,extended release furosemide 40 mg tablet 40 mg PO QAM 30 days #30 tabs 08/04/23 Rx hydrocortisone 2.5 % topical cream 1 applic AR BID 14 days #30 grams 08/04/23 Rx with perineal applicator (Anusol-HC) Hospital Stay Data Consultations 07/31/23 13:45 Consult Cardiology Routine 07/31/23 14:07 ED Decision to Admit Stat Diagnostic Imagining Performed KUB X-Ray 07/31/23 06:58 KUB HISTORY: n/v, abd pain COMPARISON: None. FINDINGS: The bowel gas pattern is unremarkable. There are no dilated loops of small bowel to suggest an obstruction. No renal calculi. No ureteral calculi. Calcifications in the deep pelvis likely represent phleboliths. Postoperative changes within the lumbar spine. The heart is enlarged. Pacemaker wires are note d. No pneumoperitoneum or pneumatosis. Mild fecal retention. IMPRESSION: Nonobstructive bowel gas pattern. ACT 112: Negative or not required by law. Electronically signed by: Mike Pandey M.D. 07/31/2023 10:26 AM Chest X-Ray 07/31/23 09:56 XR chest 1V not portable HISTORY: VOMITING COMPARISON: None. FINDINGS: No pneumothorax. No pleural effusions. The heart is enlarged. There is a left-sided pacemaker. Calcifications within the aortic knob. There is mild central pulmonary vascular congestion without overt edema. No focal lung consolidations to suggest a pneumonia. IMPRESSION: Cardiomegaly with mild congestive change. ACT 112: Negative or not required by law. Electronically signed by: Mike Pandey M.D. 07/31/2023 10:25 AM Chest X-Ray 08/01/23 17:36 XR chest 1V portable CLINICAL HISTORY: sob TECHNIQUE: Single frontal radiograph of the chest was obtained. Comparison: Comparison is made to chest radiograph 07/31/2023 FINDINGS: An implanted pacemaker is seen. Cardiomegaly is noted. The aortic arch is calcified. The lungs are clear. No evidence of pleural effusion or pneumothorax. IMPRESSION: Cardiomegaly with improved pulmonary vascular congestion. ACT 112: Negative or not required by law. Electronically signed by: Ankit Hutton M.D. 08/01/2023 8:35 PM Chest X-Ray 08/03/23 07:00 TWO VIEW CHEST CLINICAL HISTORY: Follow-up congestive failure. FINDINGS: AP and lateral chest radiographs are compared to study dated 08/01/2023. A 2-lead cardiac pacemaker is unchanged in position and partially obscures the left mid chest. The heart is enlarged noting atherosclerotic calcification of the thoracic aorta. Pulmonary vascular congestion persists. There are small pleural effusions with dependent consolidation. There is no pneumothorax. The skeletal structures are osteopenic. The bony thorax appears intact. IMPRESSION: 1. Cardiomegaly and cardiac pacemaker with persistent pulmonary vascular congestion. 2. Small pleural effusions with dependent consolidation. ACT 112: Negative or not required by law. Electronically signed by: Reese Lincoln M.D. 08/03/2023 10:03 AM Pending Results Patient Have Any Pending Studies at Discharge: Yes (blood cultures, serum immunofixation, kappa and german analysis ) Discharge Instructions Given to Patient (Per Discharging Provider) Mrs. Lanier, Maulik were hospitalized after having increasing shortness of breath and nausea. You were found to be in CHF exacerbation. You workup here included an echocardiogram that showed a now reduced EF 35-40%, swelling around the heart and other findings that have us concerned for a disease called amyloidosis. There are labs to test for this that were sent out, this can take a week or so to result. It is very important that you follow up with your exhibit cleaner regarding these findings. They may refer you to an amyloid specialist if that is the diagnosis. You were seen by cardiology here and they recommend the following - Lasix 40mg once daily - stop Sotalol - they have reached out to Bailey Yanez to keep her in the loop - Keep appointment with Dr. Kuhn regarding your pacemaker You also had an overnight pulse oxygen study that showed your oxygen saturations decrease during the night. - Home oxygen is arranged, recommend 2 liters at night Home health will be continued at discharge There were also concerns about bloody stools prior to discharge, thankfully this is in small amounts. - Likely related to hemorrhoids and I have sent in anusol suppositories for this. - If blood continues to be in small amounts okay to continue to monitor - if becoming more frequent or in greater quantities please contact PCP - any weakness, lightheadedness can return to ER Activity: You can do normal everyday activities as your body allows. Take rest breaks if you feel tired. Do not overexert. Stop activity if you have pain, shortness of breath or feel dizzy. Follow-up appointments: Make an appointment with your primary care physician within one week of discharge. A copy of this summary will be sent to them. Every time you see your primary care physician, or any other doctor, bring your medication list, and a list of questions. CONTACT YOUR PRIMARY CARE PROVIDER if you experience any of the following: Shortness of breath or difficulty breathing Fevers or chills Feeling tired with normal activity or experiencing dizziness or fainting Difficulty following your treatment plan, or difficulty taking medications CALL 911 OR GO TO THE EMERGENCY DEPARTMENT if you experience any of the following: Severe abdominal pain or nausea/vomiting Severe chest pain, or chest pain that radiates (moves) to your jaw or arm Sudden, severe shortness of breath or difficulty breathing Thank you for allowing us to participate in your care. Total Time Total Time Spent Total Time Spent (In Minutes): Time spend day of discharge 50 minutes including direct patient care, medication reconciliation, documentation, review of labs and images, and coordination of care. Coding Level of Care Code 00113 INP/OBS DISCH >30 MIN Diagnoses Acute on chronic HFrEF (heart failure with reduced ejection fraction) I50.23 Anemia D64.9 Cardiomyopathy I42.9 Paroxysmal atrial fibrillation I48.0 Pericardial effusion I31.39 CKD (chronic kidney disease) stage 3, GFR 30-59 ml/min N18.30 Acquired lymphedema I89.0 DM type 2 (diabetes mellitus, type 2) E11.9 Pulmonary hypertension I27.20
[2023-08-05] MEDS ORDERED: FUROSEMIDE 40 MG TAB PO SCH (09:00)
== END 2023-08-04 16:53 | disposition home health service (06) | DRG 291 ==
LOC: ED 06:32 → 2N 14:21 → SUATTDRO 14:21 → 2N 15:51

== ENCOUNTER 2023-08-26 15:33 | Inpatient (IN) ==
--- NOTE | 2023-08-26 15:52 | Emergency Department Note ---
Impression & Plan CHF (congestive heart failure), Effusion, pericardium, Elevated troponin I level ED Provider Note NAME: CINDY HARTLEY AGE: 83 SEX: F : 1940 ARRIVES VIA: Ambulance INFORMANT: Patient, EMS ED PROVIDER(S): Nii Anand DO CHIEF COMPLAINT: Failure to thrive HPI: The patient is an 83-year-old female with a history of CHF who was sent from her family doctor's office to our emergency department by ambulance because of not eating or drinking. She has been noted to have diarrhea. She has been having shortness of breath. There was concern she may have CHF. She has had a weight loss. There is been no reported nausea or vomiting. The patient denies having any dysuria or frequency. She denies having any abdominal pain or back pain. There is no reported fever. There is no reported rectal bleeding. ROS: See above HPI for pertinent positives & negatives. A total of 10 systems reviewed and were otherwise negative. PAST MEDICAL HISTORY: See Below PAST SURGICAL HISTORY: See Below FAMILY HISTORY: See Below SOCIAL HISTORY: See Below HOME MEDICATIONS: See Below ALLERGIES: See Below VITALS: See Below PHYSICAL EXAMINATION: GENERAL: The patient is awake to verbal commands. She is very listless and falls asleep quickly. EYES: The conjunctivae are clear. The pupils are round and reactive. EARS, NOSE, MOUTH AND THROAT: The nose is without any evidence of any deformity. Mucous membranes are dry. NECK: The neck is nontender and supple. RESPIRATORY: Diminished breath sounds with rhonchi are noted in the left lung field. There was tachypnea noted. CARDIOVASCULAR: Regular rate and rhythm was noted to auscultation. Systolic murmur was suggested. GASTROINTESTINAL: The abdomen was mildly distended. There is diffuse tenderness to palpation but no guarding or rigidity. MUSCULOSKELETAL/EXTREMITIES: There is no evidence of gross deformity full range of motion is noted in the hips and shoulders. SKIN: Skin is cool and dry. There is no pedal edema. Pulses are symmetric both feet. NEUROLOGIC: Patient is awake to verbal commands. She is oriented to person and place. 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 The patient is in very poor health. She was recently seen in our facility. The patient does have a known pericardial effusion. I discussed the patient's laboratory and radiographic studies with her and her significant other. I discussed her condition with the on-call [facility] hospitalist. They have agreed to evaluate the patient in the emergency department for further management and disposition. The patient was treated with Lasix in the emergency department. Triage Nursing notes reviewed. Prior medical records reviewed Vital Signs: reviewed and remarkable for tachypnea. Differential diagnosis: Infection, dehydration, metabolic abnormality, hypo/hyperglycemia, electrolyte disturbance, anemia, hypoxia, cardiac sources, intracerebral event, toxicologic, neurologic, as well as other pathologies. ER treatment provided: See below Diagnostics interpreted by me: ECG: EKG was obtained in the emergency department. My interpretation is dual- chamber pacemaker at 70 bpm. A left bundle branch block pattern was noted. There were no [place] beats. This was compared to a tracing from July 31, 2023. No changes were noted Cardiac Monitoring: An order was placed for continuous cardiac monitoring. The monitor shows a rate of 72 bpm with sinus rhythm. Laboratory studies: As stated above and show below. Imaging studies: See below. Radiographic imaging was reviewed by myself Consultation(s): I discussed this case with Dr. Narvaez who is on-call for the [facility] group Past Med/Surg History Problem List (Updated 08/26/23 @ 22:38 by Nii Anand DO) Elevated troponin I level (Acute) Effusion, pericardium (Acute) CHF (congestive heart failure) (Acute) SOB (shortness of breath) Cardiac amyloidosis Generalized weakness B12 deficiency Acute HFrEF (heart failure with reduced ejection fraction) Pericardial effusion Aortic stenosis Tachy-fermín syndrome Paroxysmal atrial fibrillation Pulmonary hypertension Cardiomyopathy Acute on chronic HFrEF (heart failure with reduced ejection fraction) Pacemaker DM type 2 (diabetes mellitus, type 2) Acquired lymphedema Atrial fibrillation Anemia CKD (chronic kidney disease) stage 3, GFR 30-59 ml/min Elevated troponin (Acute) CHF (congestive heart failure) (Acute) Nausea & vomiting (Acute) Abdominal pain (Acute) Social History Smoking Status: Never smoker Hx Alcohol Use: No Hx Substance Use: No Preferred Language: Bengali Communication Ability: Effective [employer]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 Beliefs That Will Affect Care: None Current Living Situation: Spouse Feels Safe at Home: Yes Assistive Devices: Cane and Walker Allergies Allergies Allergy/AdvReac Type Severity Reaction Status Date / Time bacitracin Allergy Intermediate Rash Unverified 08/26/23 17:35 [From Neosporin ([id number])] neomycin Allergy Intermediate Rash Unverified 08/26/23 17:35 [From Neosporin ([id number])] polymyxin B Allergy Intermediate Rash Unverified 08/26/23 17:35 [From Neosporin ([id number])] [id number] Allergy Unknown Unknown Uncoded 07/31/23 08:16 Home Meds Home Medications Medication Instructions Recorded Confirmed albuterol sulfate 90 mcg/actuation 2 puff inhalation Q6H PRN 07/31/23 08/26/23 aerosol inhaler SOB/Wheezing apixaban 2.5 mg tablet (Eliquis) 2.5 mg PO BID 07/31/23 08/26/23 atorvastatin 10 mg tablet 10 mg PO DAILY 07/31/23 08/26/23 azelastine 137 mcg (0.1 %) nasal 1 spray intranasal BID 07/31/23 08/26/23 spray aerosol buspirone 5 mg tablet 5 mg PO BID 07/31/23 08/26/23 ergocalciferol (vitamin D2) 1,250 50,000 unit PO MONTHLY 07/31/23 08/26/23 mcg (50,000 unit) capsule omeprazole 20 mg capsule,delayed 20 mg PO DAILY 07/31/23 08/26/23 release potassium chloride 10 mEq See Rx Instructions .Route .COMPLEX 07/31/23 08/26/23 capsule,extended release Previous Rx's Medication Instructions Recorded furosemide 40 mg tablet 40 mg PO QAM 30 days #30 tabs 08/04/23 hydrocortisone 2.5 % topical cream 1 applic AK BID 14 days #30 grams 08/04/23 with perineal applicator (Anusol-HC) Results & Data (ED) Vital Signs Vital Signs - 24 hr 08/26/23 15:33 08/26/23 15:43 08/26/23 15:45 Temperature 36.6 C Temperature Source Oral Pulse Rate 69 70 Pulse Rate from SpO2 Sensor Respiratory Rate 24 Respiratory Effort / Characteristics Non-Labored Spontaneous Respiratory Depth Normal Respiratory Pattern Regular Blood Pressure 130/76 Blood Pressure Mean 94 Pulse Oximetry 94 Oxygen Delivery Method Room Air Nasal Cannula Oxygen Flow Rate 2 Sepsis Recent Fever Within 48 Hours No Sepsis New/Unexplained Change in Mental Status No Sepsis Action Taken by Nursing No Action Required 08/26/23 16:00 08/26/23 16:03 08/26/23 16:33 Temperature Temperature Source Pulse Rate 74 70 Pulse Rate from SpO2 Sensor 73 70 Respiratory Rate 29 H 20 Respiratory Effort / Characteristics Respiratory Depth Respiratory Pattern Blood Pressure 110/63 110/63 132/75 Blood Pressure Mean 91 78 94 Pulse Oximetry 98 100 Oxygen Delivery Method Oxygen Flow Rate Sepsis Recent Fever Within 48 Hours Sepsis New/Unexplained Change in Mental Status Sepsis Action Taken by Nursing 08/26/23 17:00 08/26/23 17:30 08/26/23 17:30 Temperature Temperature Source Pulse Rate 70 74 Pulse Rate from SpO2 Sensor 75 Respiratory Rate 13 29 H Respiratory Effort / Characteristics Respiratory Depth Respiratory Pattern Blood Pressure 115/61 110/62 Blood Pressure Mean 81 82 Pulse Oximetry 99 91 Oxygen Delivery Method Oxygen Flow Rate Sepsis Recent Fever Within 48 Hours Sepsis New/Unexplained Change in Mental Status Sepsis Action Taken by Nursing 08/26/23 17:30 08/26/23 18:00 08/26/23 18:00 Temperature Temperature Source Pulse Rate 73 Pulse Rate from SpO2 Sensor 71 Respiratory Rate 26 H Respiratory Effort / Characteristics Respiratory Depth Respiratory Pattern Blood Pressure 110/62 109/62 Blood Pressure Mean 82 90 Pulse Oximetry 98 Oxygen Delivery Method Oxygen Flow Rate Sepsis Recent Fever Within 48 Hours Sepsis New/Unexplained Change in Mental Status Sepsis Action Taken by Skilled Nursing Medications Current Medication List: was personally reviewed by me Laboratory Data Attestation: I reviewed the patient's lab results. 08/26/23 15:59 08/26/23 15:59 Lab Results 08/26/23 08/26/23 08/26/23 Range/Units 15:57 15:59 16:14 WBC 5.58 (4.8-10.8) K/ul RBC 3.09 L (4.20-5.40) M/uL Hgb 10.4 L (12.0-16.0) g/dl POC Hgb 10.2 L (12.0-16.0) g/dl Hct 31.9 L (37.0-47.0) % POC Hct 30 L (37-47) % MCV 103.2 H (80.0-100.0) fL MCH 33.7 (25.0-34.0) pg MCHC 32.6 (32.0-36.0) g/dL RDW Std Deviation 56.6 H (36.4-46.3) fL RDW Coeff of [place] 14.8 H (11.5-14.5) % Plt Count 237 (130-400) K/uL MPV 9.3 L (9.4-12.4) fL Immature Gran % (Auto) 0.2 % Neut % (Auto) 58.7 % Lymph % (Auto) 34.1 % Perry % (Auto) 5.2 % Eos % (Auto) 1.4 % Baso % (Auto) 0.4 % Neut # (Auto) 3.28 (1.40-6.50) K/uL Lymph # (Auto) 1.90 (1.20-3.40) K/uL Perry # (Auto) 0.29 (0.11-0.59) K/uL Eos # (Auto) 0.08 (0.00-0.50) K/uL Baso # (Auto) 0.02 (0.00-0.20) K/uL Immature Gran # (Auto) 0.01 (0.01-0.20) K/uL PT 13.3 H (9.0-12.0) Seconds INR 1.2 H (0.9-1.1) APTT 24 (21-31) Seconds PTT Ratio 0.9 VBG pH 7.38 (7.36-7.41) VBG pCO2 48 (38-50) mmHg VBG pO2 25 mmHg VBG HCO3 28 mmol/L VBG O2 Saturation < 60.0 % VBG Base Excess 2.5 mEq/L POC Sodium 140 (135-144) mmol/L Sodium 140 (136-145) mmol/L POC Potassium 3.6 (3.3-5.0) mmol/L Potassium 3.6 (3.5-5.1) mmol/L POC Chloride 103 (101-112) mmol/L Chloride 103 (98-107) mmol/L Carbon Dioxide 30 (21-32) mmol/L POC Total CO2 25 (24-31) mmol/L Anion Gap 7 (3-11) POC Anion Gap 16.0 (16-25) mmol/L POC BUN 34 H (7-18) mg/dl BUN 41 H (6-23) mg/dl Creatinine 0.86 (0.6-1.2) mg/dl POC Creatinine 0.9 (0.6-1.3) mg/dl Est Cr Clr Drug Dosing 34.6 ml/min Est GFR ( Amer) 71.4 ml/min Est GFR (Non-Af Amer) 61.6 ml/min BUN/Creatinine Ratio 47.7 H (10-20) Glucose 150 H (70-99(Fasting)) mg/dl POC Glucose (other) 143 H (70-99) mg/dl Lactate 1.4 (0.4-2.0) mmol/L Calcium 10.1 (8.6-10.3) mg/dl POC Ioniz Calcium Asad 1.31 (1.12-1.32) mmol/l Magnesium 2.0 (1.7-2.4) mg/dl Total Bilirubin 0.8 (0.2-1.0) mg/dl Direct Bilirubin 0.2 (0-0.2) mg/dl AST 17 (13-39) U/L ALT 15 (7-52) U/L Alkaline Phosphatase 101 (34-104) U/L Troponin I High Sens 109.0 H* (0-14) pg/ml B-Natriuretic Peptide 569 H (0-100) pg/ml Total Protein 6.3 (6.0-8.3) gm/dl Albumin 3.7 (3.4-5.0) gm/dl Procalcitonin 0.05 (0-0.5) ng/ml Adenovirus (PCR) Not Detected (NotDetected) B. pertussis DNA (PCR) Not Detected (NotDetected) B.parapertussis DNA PCR Not Detected (NotDetected) C. pneumoniae DNA (PCR) Not Detected (NotDetected) Coronavirus OC43 (PCR) Not Detected (NotDetected) Coronavirus HKU1 (PCR) Not Detected (NotDetected) Coronavirus 229E (PCR) Not Detected (NotDetected) SARS-CoV-2 (PCR) Not Detected (NotDetected) Coronavirus NL63 (PCR) Not Detected (NotDetected) Human Metapneumovir PCR Not Detected (NotDetected) Influenza Type A (PCR) Not Detected (NotDetected) Influenza Type B (PCR) Not Detected (NotDetected) M. pneumoniae (PCR) Not Detected (NotDetected) Parainfluenza 1 (PCR) Not Detected (NotDetected) Parainfluenza 2 (PCR) Not Detected (NotDetected) Parainfluenza 3 (PCR) Not Detected (NotDetected) Parainfluenza 4 (PCR) Not Detected (NotDetected) RSV (PCR) Not Detected (NotDetected) Entero/Rhino (PCR) Not Detected (NotDetected) Administered Medications Apixaban (Apixaban 2.5 Mg Tab) 2.5 mg PO BID DWAIN Stop: 09/25/23 21:59 Last Admin: 08/26/23 22:04 Dose: 2.5 mg Documented By: CRISTOPHER Buspirone HCl (Buspirone 5 Mg Tab) 5 mg PO BID DWAIN Stop: 09/25/23 21:59 Last Admin: 08/26/23 22:03 Dose: 5 mg Documented By: CRISTOPHER Discontinued Medications Furosemide (Furosemide 40 Mg/4 Ml Vial) 40 mg IV ONE ONE Stop: 08/26/23 17:37 Last Admin: 08/26/23 18:41 Dose: 40 mg Documented By: MANJINDER Imaging Data Attestation: I personally reviewed and interpreted this imaging study as follows: My Impression: 1 view chest x-ray was obtained in the emergency department. My interpretation is cardiomegaly with vascular congestion, final report below. Radiologist's Impression: Chest X-Ray 08/26/23 15:45 XR chest 1V portable CLINICAL HISTORY: Sepsis. COMPARISON STUDY: Chest radiograph August 03, 2023. FINDINGS: To a left subclavian pacer is unchanged in position. Moderate cardiomegaly is again noted. There is pulmonary vascular congestion without overt pulmonary edema. This is unchanged. Suspected small left pleural effusion. No consolidation is identified to suggest pneumonia. IMPRESSION: No change in appearance of the chest. Cardiomegaly with pulmonary vascular congestion and a suspected small left pleural effusion. ACT 112: Negative or not required by law. Electronically signed by: Ismael Morgan M.D. 08/26/2023 4:10 PM Discharge Plan Visit Data Chief Complaint: Illness Stated Complaint: ILLNESS ED Provider: Nii Anand Discharge Problem: CHF (congestive heart failure), Effusion, pericardium, Elevated troponin I level Patient Disposition: Home - Self-Care Discharge Instructions Interventions: ED Discharge Assessment Last Done: 08/26/23 21:11 Discharge Problem: CHF (congestive heart failure) Qualifiers: Heart failure type: unspecified Heart failure chronicity: unspecified Qualified Code(s): I50.9 - Heart failure, unspecified
[2023-08-26 16:09] LABS: Base Excess VBG 2.5 mEq/L; HCO3 VBG 28 mmol/L; Oxygen Saturation VBG < 60.0 %; PCO2 VBG 48 mmHg (38-50); PO2 VBG 25 mmHg; pH VBG 7.38 (7.36-7.41)
[2023-08-26 16:10] LABS: iSTAT Creatinine 0.9 mg/dl (0.6-1.3); iSTAT Hemoglobin 10.2 g/dl (12.0-16.0); iSTAT Ionized Calcium 1.31 mmol/l (1.12-1.32); iSTAT Potassium 3.6 mmol/L (3.3-5.0)
--- NOTE | 2023-08-26 16:12 | XRay Report ---
XR chest 1V portable CLINICAL HISTORY: Sepsis. COMPARISON STUDY: Chest radiograph August 03, 2023. FINDINGS: To a left subclavian pacer is unchanged in position. Moderate cardiomegaly is again noted. There is pulmonary vascular congestion without overt pulmonary edema. This is unchanged. Suspected sm all left pleural effusion. No consolidation is identified to suggest pneumonia. IMPRESSION: No change in appearance of the chest. Cardiomegaly with pulmonary vascular congestion an d a suspected small left pleural effusion. ACT 112: Negative or not required by law. Electronically signed by: Ismael Morgan M.D. 08/26/2023 4:10 PM
[2023-08-26 16:22] LABS: Basophils # (auto) 0.02 K/uL (0.00-0.20); Basophils % (auto) 0.4 %; Eosinophils # (auto) 0.08 K/uL (0.00-0.50); Eosinophils % (auto) 1.4 %; Hematocrit (blood only) 31.9 % (37.0-47.0); Hemoglobin 10.4 g/dl (12.0-16.0); Immature Granulocytes # (auto) 0.01 K/uL (0.01-0.20); Immature Granulocytes % (auto) 0.2 %; Lymphocytes % (auto) 34.1 %; Mean Corpuscular Hemoglobin 33.7 pg (25.0-34.0); Mean Corpuscular Hgb Conc 32.6 g/dL (32.0-36.0); Mean Corpuscular Volume 103.2 fL (80.0-100.0); Mean Platelet Volume 9.3 fL (9.4-12.4); Monocytes # (auto) 0.29 K/uL (0.11-0.59); Monocytes % (auto) 5.2 %; Neutrophils # (auto) 3.28 K/uL (1.40-6.50); Neutrophils % (auto) 58.7 %; Platelet Count 237 K/uL (130-400); RDW Coefficient of Variation 14.8 % (11.5-14.5); RDW Standard Deviation 56.6 fL (36.4-46.3); Red Blood Count 3.09 M/uL (4.20-5.40); White Blood Count 5.58 K/ul (4.8-10.8)
--- NOTE | 2023-08-26 16:33 | Electrocardiogram Report ---
Test Reason : Blood Pressure : / mmHG Vent. Rate : 070 BPM Atrial Rate : 070 BPM P-R Int : 198 ms QRS Dur : 160 ms QT Int : 476 ms P-R-T Axes : 058 105 -55 degrees QTc Int : 514 ms AV dual-paced rhythm Abnormal ECG When compared with ECG of 31-JUL-2023 07:38, No significant change was found Confirmed by Johny Wade ([id number]) on 08/26/2023 4:33:30 PM Referred By: Confirmed By:Johny Wade
[2023-08-26 16:38] LABS: Albumin Level 3.7 gm/dl (3.4-5.0); BUN Creatinine Ratio 47.7 (10-20); Bilirubin Direct 0.2 mg/dl (0-0.2); Bilirubin,Total 0.8 mg/dl (0.2-1.0); Calcium 10.1 mg/dl (8.6-10.3); Creatinine Clr Calc Pharmacy 34.6 ml/min; Est GFR (African American) 71.4 ml/min; Est GFR (Non-African American) 61.6 ml/min; Potassium 3.6 mmol/L (3.5-5.1); Total Protein 6.3 gm/dl (6.0-8.3)
[2023-08-26 16:48] LABS: INR 1.2 (0.9-1.1); Partial Thromboplastin Ratio 0.9; Partial Thromboplastin Time 24 Seconds (21-31); Prothrombin Time 13.3 Seconds (9.0-12.0)
[2023-08-26 17:11] LABS: Adenovirus PCR Not Detected (NotDetected); Bordetella parapertussis PCR Not Detected (NotDetected); Bordetella pertussis PCR Not Detected (NotDetected); Chlamydia pneumoniae PCR Not Detected (NotDetected); Coronavirus 229E PCR Not Detected (NotDetected); Coronavirus CoV-2 (COVID19)PCR Not Detected (NotDetected); Coronavirus HKU1 PCR Not Detected (NotDetected); Coronavirus NL63 PCR Not Detected (NotDetected); Coronavirus OC43PCR Not Detected (NotDetected); Human Metapneumovirus PCR Not Detected (NotDetected); Influenza A PCR Not Detected (NotDetected); Influenza B PCR Not Detected (NotDetected); Mycoplasma pneumoniae PCR Not Detected (NotDetected); Parainfluenza Virus 1 PCR Not Detected (NotDetected); Parainfluenza Virus 2 PCR Not Detected (NotDetected); Parainfluenza Virus 3 PCR Not Detected (NotDetected); Parainfluenza Virus 4 PCR Not Detected (NotDetected); Respiratory Syncytial VirusPCR Not Detected (NotDetected); Rhinovirus/Enterovirus PCR Not Detected (NotDetected)
--- NOTE | 2023-08-26 17:54 | History & Physical Report ---
Date of Service August 26, 2023 Assessment & Plan (1) Generalized weakness: Plan: Admit to [facility] telemetry pulse oximetry Currently stable but with ongoing clinical decline since last admission No recent falls but has required increased assistance with ambulation per She appears frail on exam, they report poor oral intake recently No signs of infection at this time Lab the patient evaluated by PT/OT as she very well may require inpatient rehab at the time of discharge If prognosis is poor patient would likely benefit from palliative medicine consult prior to discharge Dietitian consult has been placed to assist with nutritional assessment Fall/aspiration precautions Home Eliquis for DVT prophylaxis Heart healthy/DM type II diet with 1800 mL fluid restriction AM CBC, CMP, mag, PT/INR (2) Elevated troponin: Plan: Initial high-sensitivity troponin elevated at 109, 2-hour repeat is currently in process Patient denies recent chest pain No acute ECG changes Suspect this is due to ongoing demand from cardiac amyloidosis Will continue to monitor on telemetry, and continue to trend troponin until it begins to fall Cardiology has been consulted (3) Cardiac amyloidosis: Plan: Workup for cardiac amyloidosis was initially started at the beginning of this month during the patient's last admission from 07/31/2023 - 08/04/2023. Patient's explains that she was sent over from her [facility] cardiology appointment due to concerns for her workup being significant for cardiac amyloidosis and her ongoing clinical decline The rest of her workup will likely need to be continued outpatient as we do not have access to cardiac MRI here Will consult cardiology for further recommendations and any adjustments to her current medications Continue to monitor on telemetry at this time (4) SOB (shortness of breath): Plan: Patient has noted ongoing shortness of breath along with her other complaints today Was discharged on as needed O2 after last discharge, currently stable on 2 L nasal cannula Chest x-ray appears stable compared to last hospitalization, no reported consolidations Patient has been compliant on her Eliquis, no pleuritic chest pain has been hemodynamically stable and stable on her baseline 2 L nasal cannula, low suspicion of PE at this time. If clinical suspicion increases would recommend CT of the chest with IV contrast with PE protocol Suspect a large component of her subjective shortness of breath is a component of her cardiac amyloidosis, CHF, severe pulmonary hypertension, and deconditioning from recent admission Continue supportive care at this time with incentive spirometry, flutter therapy, as needed O2 to keep SpO2 at or above 92% (5) Acute HFrEF (heart failure with reduced ejection fraction): Plan: Patient examines euvolemic to slightly dehydrated on exam Patient's explains that her swelling has been much improved since last admission, has been compliant with daily Lasix Chest x-ray was read as stable compared to discharge Patient was given an additional 40 mg IV Lasix in the ED prior to admission, will hold additional IV diuretics at this time Will hold her home Lasix tonight and wait for a.m. CMP to see if she develops OJSELITO, if renal function is stable can continue her home p.o. Lasix Monitor intake output every shift, daily weights (6) Paroxysmal atrial fibrillation: Plan: Currently in paced rhythm Continue Eliquis Currently not on rate or rhythm medications, continue to monitor for now (7) DM type 2 (diabetes mellitus, type 2): Plan: Monitor BSG ACHS, goal is [id number] Patient is not currently on antihyperglycemic regimen outpatient For now we will start CF of 50 and CR of 15 ACHS Hold basal insulin for now as she has had very poor oral intake, want to avoid hypoglycemia Adjust regimen as needed Plan The patient was discussed with Dr. Narvaez at the time of the admission History of Present Illness Chief Complaint: Weakness, worsening SOB, poor oral intake Primary Care Provider: Pipo Kenny PA-C Ekaterina is an 83-year-old female with a past medical history significant for heart failure with reduced EF, cardiomyopathy, tachybradycardia syndrome status post pacemaker placement, paroxysmal atrial fibrillation (on Eliquis), severe pulmonary hypertension, chronic hypoxic respiratory failure, anemia, CKD, acquired lymphedema, DM type II, who presented to the [facility] ED via EMS from her PCPs office due to concerns for progressive generalized weakness, poor oral intake, weight loss, and increased shortness of breath since her discharge from [facility] on 08/04/2023. On arrival to the ED she was initially noted to be tachypneic with respirations of 29 but was noted to be stable on 2 L nasal cannula and otherwise stable. Labs were significant for a slightly improved anemia compared to last admission, INR 1.2, VBG within normal limits, initial high-sensitivity troponin of 109, BNP of 569 (down from 1285 as of 07/31/2023), and negative for respiratory BioFire. Chest x-ray was read as no change in appearance of the chest. Cardiomegaly with pulmonary vascular congestion and a suspected small left pleural effusion. EKG showed an AV dual paced rhythm without acute changes compared to last admission. Prior to admission the patient was given 40 mg IV Lasix. Patient was lying in bed in no acute distress at the time of the exam with her bedside, history was mainly obtained from the patient's as she is currently weak/tired. Her explains that they were at the patient's cardiology appointment ([facility] cardiology in [place]) for follow-up after her last admission to our facility at the beginning of this month. Unfortunately they were told that the amyloidosis workup which had been started at our facility is highly concerning for cardiac amyloidosis. Since discharge from our facility the patient has had a progressive clinical decline. Her appetite has been poor, she is requiring more assistance for her ADLs, but they deny recent falls. No recent fevers, chills, chest pain, cough, abdominal Pain, nausea/vomiting, dysuria/hematuria, melena, worsening lower extremity swelling, and recent fall/trauma. Her says that the patient's legs have been much less swollen than prior to last admission, she has been compliant with her daily Lasix. I explained that the diagnosis of amyloidosis is often a difficult one as it can be difficult to treat. At this point we can bring her in for further evaluation by cardiology and likely placement at the time of discharge. I had a long discussion with them regarding goals of care, at this time they would still like the patient to be a full code, her is her POA. Please refer to Dr. Narvaez's attestation for any changes to the treatment plan Allergies Allergy/AdvReac Type Severity Reaction Status Date / Time bacitracin Allergy Intermediate Rash Unverified 08/26/23 17:35 [From Neosporin ([id number])] neomycin Allergy Intermediate Rash Unverified 08/26/23 17:35 [From Neosporin ([id number])] polymyxin B Allergy Intermediate Rash Unverified 08/26/23 17:35 [From Neosporin ([id number])] [id number] Allergy Unknown Unknown Uncoded 07/31/23 08:16 Home Medications Medication Instructions Recorded Confirmed Type albuterol sulfate 90 mcg/actuation 2 puff inhalation Q6H PRN 07/31/23 08/26/23 History aerosol inhaler SOB/Wheezing apixaban 2.5 mg tablet (Eliquis) 2.5 mg PO BID 07/31/23 08/26/23 History atorvastatin 10 mg tablet 10 mg PO DAILY 07/31/23 08/26/23 History azelastine 137 mcg (0.1 %) nasal 1 spray intranasal BID 07/31/23 08/26/23 History spray aerosol buspirone 5 mg tablet 5 mg PO BID 07/31/23 08/26/23 History ergocalciferol (vitamin D2) 1,250 50,000 unit PO MONTHLY 07/31/23 08/26/23 History mcg (50,000 unit) capsule omeprazole 20 mg capsule,delayed 20 mg PO DAILY 07/31/23 08/26/23 History release potassium chloride 10 mEq See Rx Instructions .Route .COMPLEX 07/31/23 08/26/23 History capsule,extended release furosemide 40 mg tablet 40 mg PO QAM 30 days #30 tabs 08/04/23 08/26/23 Rx hydrocortisone 2.5 % topical cream 1 applic [place] BID 14 days #30 grams 08/04/23 08/26/23 Rx with perineal applicator (Anusol-HC) Past Med/Surg History Problem List (Updated 08/26/23 @ 19:05 by Bonifacio Martin PA-C) SOB (shortness of breath) Cardiac amyloidosis Generalized weakness B12 deficiency Acute HFrEF (heart failure with reduced ejection fraction) Pericardial effusion Aortic stenosis Tachy-fermín syndrome Paroxysmal atrial fibrillation Pulmonary hypertension Cardiomyopathy Acute on chronic HFrEF (heart failure with reduced ejection fraction) Pacemaker DM type 2 (diabetes mellitus, type 2) Acquired lymphedema Atrial fibrillation Anemia CKD (chronic kidney disease) stage 3, GFR 30-59 ml/min Elevated troponin (Acute) CHF (congestive heart failure) (Acute) Nausea & vomiting (Acute) Abdominal pain (Acute) Social History Smoking Status: Never smoker Hx Alcohol Use: No Hx Substance Use: No Preferred Language: Macanese Communication Ability: Effective Operations Intelligence Superintendent Required: Yes Beliefs That Will Affect Care: None Current Living Situation: Spouse Feels Safe at Home: Yes Assistive Devices: Cane and Walker Physical Exam Physical Exam: Physical Exam: General: In no acute distress, older than state age, severely malnourished/cachectic, HEENT: BL temporal wasting, no scleral icterus, pupils around round, symmetrical, and reactive to light, dry mucus membranes, trachea midline, no thyromegaly Chest/Pulm: No respiratory distress, symmetrical chest expansion, scattered expiratory wheezing Cardiac: RRR, 3/6 systolic murmur noted Abdomen: Negative for ascites and bruising, normoactive bowel sounds, soft, non-tender to palpation throughout Musculoskeletal: Symmetrical and without signs of acute trauma, upper and lower extremities with full ROM, no atrophy, spasticity, or flaccidity Extremities: Radial, dorsalis pedis, and posterior tibial pulses are intact and symmetrical, no edema noted in the BL LE's Skin: Warm, dry, no rashes , lesions, or scars noted Neuro: Alert and oriented to person, place, month, year, and president, no focal defects, no tremors noted Psych: No acute distress, fatigued, calm and cooperative during the exam Results & Data Results & Data Vital Signs (Past 12 Hours) Vital Signs Temp Pulse Resp BP Pulse Ox O2 Del Method O2 Flow Rate 08/26/23 17:00 70 13 115/61 99 08/26/23 16:33 70 20 132/75 100 08/26/23 16:03 74 29 H 110/63 98 08/26/23 16:00 110/63 08/26/23 15:45 Nasal Cannula 2 08/26/23 15:43 70 08/26/23 15:33 36.6 C 69 24 130/76 94 Room Air Laboratory Results Abnormal lab results 08/26/23 08/26/23 Range/Units 15:57 15:59 RBC 3.09 L (4.20-5.40) M/uL Hgb 10.4 L (12.0-16.0) g/dl POC Hgb 10.2 L (12.0-16.0) g/dl Hct 31.9 L (37.0-47.0) % POC Hct 30 L (37-47) % MCV 103.2 H (80.0-100.0) fL RDW Std Deviation 56.6 H (36.4-46.3) fL RDW Coeff of Lorene 14.8 H (11.5-14.5) % MPV 9.3 L (9.4-12.4) fL PT 13.3 H (9.0-12.0) Seconds INR 1.2 H (0.9-1.1) POC BUN 34 H (7-18) mg/dl BUN 41 H (6-23) mg/dl BUN/Creatinine Ratio 47.7 H (10-20) Glucose 150 H (70-99(Fasting)) mg/dl POC Glucose (other) 143 H (70-99) mg/dl Troponin I High Sens 109.0 H* (0-14) pg/ml B-Natriuretic Peptide 569 H (0-100) pg/ml Diagnostic Findings Chest X-Ray 08/26/23 15:45 XR chest 1V portable CLINICAL HISTORY: Sepsis. COMPARISON STUDY: Chest radiograph August 03, 2023. FINDINGS: To a left subclavian pacer is unchanged in position. Moderate cardiomegaly is again noted. There is pulmonary vascular congestion without overt pulmonary edema. This is unchanged. Suspected small left pleural effusion. No consolidation is identified to suggest pneumonia. IMPRESSION: No change in appearance of the chest. Cardiomegaly with pulmonary vascular congestion and a suspected small left pleural effusion. ACT 112: Negative or not required by law. Electronically signed by: Ismael Morgan M.D. 08/26/2023 4:10 PM ECG Additional Comments: AV dual-paced rhythm Abnormal ECG When compared with ECG of 31-JUL-2023 07:38, No significant change was found Confirmed by Johny Wade ([id number]) on 08/26/2023 4:33:30 PM Code Status & VTE Plan Code Status Full code VTE Prophylaxis Plan VTE Prophylaxis will be ordered: Yes Supervising Physician Co-Signing Physician Notes Patient was seen and examined, agree with above assessment and plan , she was here here from [facility] cardiology for amyloidosis evaluation, reports feeling better, CHF systolic type compensated GENERAL: The patient is awake to verbal commands. She is very listless and falls asleep quickly. EYES: The conjunctivae are clear. The pupils are round and reactive. EARS, NOSE, MOUTH AND THROAT: The nose is without any evidence of any deformity. Mucous membranes are dry. NECK: The neck is nontender and supple. RESPIRATORY: Diminished breath sounds with rhonchi are noted in the left lung field. There was tachypnea noted. CARDIOVASCULAR: Regular rate and rhythm was noted to auscultation. Systolic murmur was suggested. GASTROINTESTINAL: The abdomen was mildly distended. There is diffuse tenderness to palpation but no guarding or rigidity. MUSCULOSKELETAL/EXTREMITIES: There is no evidence of gross deformity full range of motion is noted in the hips and shoulders. SKIN: Skin is cool and dry. There is no pedal edema. Pulses are symmetric both feet. NEUROLOGIC: Patient is awake to verbal commands. She is oriented to person and place. Strength was symmetric but diminished continue home meds consult cardiology for amyloidosis consider palliative care consult PG Care Time/CCT Total # of Minutes Spent Total Time Spent with Patient: Total time spent is greater than 50% in coordination of care (as documented) at patient's floor/unit and/or counseling patient: C[place] [address] INT INP/OBS CARE 3/75MIN Patient Type Established Medical Decision Making High Complexity Diagnoses Generalized weakness R53.1 Elevated troponin R79.89 Cardiac amyloidosis E85.4; I43 SOB (shortness of breath) R06.02 Acute HFrEF (heart failure with reduced ejection fraction) I50.21 Paroxysmal atrial fibrillation I48.0 DM type 2 (diabetes mellitus, type 2) E11.9
[2023-08-26] MEDS: FUROSEMIDE 40 MG/4 ML VIAL IV ONE (18:41)
[2023-08-26 19:29] LABS: Appearance Urine Clear (Clear); Bilirubin Urine Negative (Negative); Blood Urine Negative (Negative); Color Urine Yellow; Glucose Urine UA Negative (Negative); Ketones Urine Negative (Negative); Leukocyte Esterase Urine Negative (Negative); Nitrite Urine Negative (Negative); Protein Urine Negative (Negative); Specific Gravity Urine 1.011 (1.000-1.030); Urobilinogen Urine Negative (Negative); pH Urine 6.5 (4.5-7.5)
[2023-08-26] MEDS ORDERED: ALBUTEROL HFA 8 GM INHALER INH PRN (21:11)
[2023-08-26] MEDS: busPIRone 5 MG TAB PO SCH (22:03)
[2023-08-26] MEDS: APIXABAN 2.5 MG TAB PO SCH (22:04)
[2023-08-27 06:29] LABS: Basophils # (auto) 0.03 K/uL (0.00-0.20); Basophils % (auto) 0.6 %; Eosinophils # (auto) 0.09 K/uL (0.00-0.50); Eosinophils % (auto) 1.7 %; Hematocrit (blood only) 31.8 % (37.0-47.0); Hemoglobin 10.3 g/dl (12.0-16.0); Immature Granulocytes # (auto) 0.02 K/uL (0.01-0.20); Immature Granulocytes % (auto) 0.4 %; Lymphocytes # (auto) 1.65 K/uL (1.20-3.40); Lymphocytes % (auto) 30.6 %; Mean Corpuscular Hemoglobin 33.4 pg (25.0-34.0); Mean Corpuscular Hgb Conc 32.4 g/dL (32.0-36.0); Mean Corpuscular Volume 103.2 fL (80.0-100.0); Mean Platelet Volume 9.2 fL (9.4-12.4); Monocytes # (auto) 0.22 K/uL (0.11-0.59); Monocytes % (auto) 4.1 %; Neutrophils # (auto) 3.39 K/uL (1.40-6.50); Neutrophils % (auto) 62.6 %; Platelet Count 220 K/uL (130-400); RDW Coefficient of Variation 14.3 % (11.5-14.5); RDW Standard Deviation 54.5 fL (36.4-46.3); Red Blood Count 3.08 M/uL (4.20-5.40)
[2023-08-27 06:44] LABS: Albumin Globulin Ratio 1.3 (0.9-2); Albumin Level 3.5 gm/dl (3.4-5.0); Bilirubin,Total 0.9 mg/dl (0.2-1.0); Calcium 9.8 mg/dl (8.6-10.3); Creatinine Clr Calc Pharmacy 34.6 ml/min; Est GFR (African American) 71.4 ml/min; Est GFR (Non-African American) 61.6 ml/min; Globulin 2.6 gm/dl (2.5-4.0); Total Protein 6.1 gm/dl (6.0-8.3)
[2023-08-27 06:50] LABS: INR 1.3 (0.9-1.1); Prothrombin Time 13.5 Seconds (9.0-12.0)
[2023-08-27] MEDS: POTASSIUM CHLORIDE / WTR 10 MEQ/100 ML PLCT IV SCH (08:39)
[2023-08-27] MEDS: POTASSIUM CHLORIDE CRTAB 20 MEQ TABCR PO STA (08:40)
[2023-08-27] MEDS: PANTOprazole 40 MG TAB PO SCH (08:41)
[2023-08-27] MEDS: ATORVASTATIN 10 MG TAB PO SCH (08:41)
[2023-08-27] MEDS: FUROSEMIDE 40 MG TAB PO SCH (08:44)
--- NOTE | 2023-08-27 11:58 | Cardiology Consultation ---
Date of Consultation August 27, 2023 Assessment & Plan (1) Cardiac amyloidosis: (2) Physical deconditioning: (3) Chronic HFrEF (heart failure with reduced ejection fraction): (4) Pericardial effusion: (5) Paroxysmal atrial fibrillation: (6) Pacemaker: Plan 83-year-old woman with multiple cardiac and medical problems who has had a general decline in functional status since her hospitalization earlier this month, suspected but not proven cardiac amyloidosis complicated by declining LV systolic function and recent admission with heart failure. Her weight is down considerably and her neck veins are not elevated, creatinine is at a song compared with recent values, chest x-ray is unimpressive, suspect she has mildly hypovolemic or euvolemic, would hold diuretics at this time. If she has substantial weight gain, progressive dyspnea, or exam evidence of recurrent hypervolemia, could restart furosemide at that time. To complete her workup for cardiac amyloidosis she should have either cardiac MRI or scintigraphy with pyrophosphate or similar agent, neither of these studies is performed here, but cardiac MRI could be obtained at [facility] as an outpatient. Although some forms of cardiac amyloidosis have treatment options available (Vyndamax for ATTR) , her poor functional status may potentially preclude consideration of such a regimen. Given her advanced age, functional decline, and general frailty, degree of aggressiveness of further evaluation should be discussed with the patient and her (patient appears to lack insight). Palliative consultation may be a consideration As noted by Dr. Lamas, conventional agents for HFrEF may be contraindicated if the patient has cardiac amyloid. Even if cardiac amyloid is not present, given her low normal blood pressure it seems unlikely that she would tolerate any of the vasoactive agents (VERENICE inhibitor, ARB, Entresto) at this time anyway. Patient is known to Dr. Lamas from her initial evaluation and he will be covering the weekend, defer to him for further recommendations. History of Present Illness Reason for Consultation: Concerns for Cardiac amylodosis Requesting Physician: Terrance Adorno MD Attending Physician: Terrance Adorno MD History of Present Illness 83-year-old woman with history of heart failure (initially HFpEF, more recently HFrEF), dual-chamber pacemaker ([employer]), paroxysmal atrial fibrillation (reduced dose apixaban, not on negative chronotropic) with tachybrady syndrome, and mild aortic stenosis, who was recently hospitalized ( - 08/04/2023) for apparent worsening heart failure, evaluation showed significant recent decline in systolic function and echocardiographic findings suggesting cardiac amyloidosis, she was discharged home on 08/04/2023 but has had frailty and weakness with anorexia and weight loss as well as chronic dyspnea, sent from her PCP office via EMS for further evaluation. Please see Dr. Lamas's consultation note of 07/31/2023 and subsequent cardiology progress notes for detailed recounting of patient's prior studies and her evaluation here. Briefly, her systolic function had declined from greater than 75% March 2023 down to 35-40% at the time of her last admission. A moderate pericardial effusion without tamponade physiology appeared unchanged from March 2023. Aspects of her echocardiogram suggested cardiac amyloidosis and therefore serum and urine immunofixation studies were sent to evaluate for amyloidosis. Given this concern, standard heart failure medications were not administered but she did receive diuretic, her weight dropped from admission value of 118 pounds to 105 pounds on discharge. Current weight is 100 pounds. Upon my evaluation today, she recounted the story of accidentally drinking her 's spitoon contents as the reason for this admission, where it was actually the reason for her admission on 07/31/2023. She states that she feels "much better" today, denying any chest pain, dyspnea, palpitations, or lightheadedness. She notes that at home she becomes dyspneic with minimal exertion. She had no somatic complaints at the time my evaluation. Allergies Allergy/AdvReac Type Severity Reaction Status Date / Time bacitracin Allergy Intermediate Rash Unverified 08/26/23 17:35 [From Neosporin ([id number])] neomycin Allergy Intermediate Rash Unverified 08/26/23 17:35 [From Neosporin ([id number])] polymyxin B Allergy Intermediate Rash Unverified 08/26/23 17:35 [From Neosporin ([id number])] [id number] Allergy Unknown Unknown Uncoded 07/31/23 08:16 Home Medications Medication Instructions Recorded Confirmed Type albuterol sulfate 90 mcg/actuation 2 puff inhalation Q6H PRN 07/31/23 08/26/23 History aerosol inhaler SOB/Wheezing apixaban 2.5 mg tablet (Eliquis) 2.5 mg PO BID 07/31/23 08/26/23 History atorvastatin 10 mg tablet 10 mg PO DAILY 07/31/23 08/26/23 History azelastine 137 mcg (0.1 %) nasal 1 spray intranasal BID 07/31/23 08/26/23 History spray aerosol buspirone 5 mg tablet 5 mg PO BID 07/31/23 08/26/23 History ergocalciferol (vitamin D2) 1,250 50,000 unit PO MONTHLY 07/31/23 08/26/23 History mcg (50,000 unit) capsule omeprazole 20 mg capsule,delayed 20 mg PO DAILY 07/31/23 08/26/23 History release potassium chloride 10 mEq See Rx Instructions .Route .COMPLEX 07/31/23 08/26/23 History capsule,extended release furosemide 40 mg tablet 40 mg PO QAM 30 days #30 tabs 08/04/23 08/26/23 Rx hydrocortisone 2.5 % topical cream 1 applic [place] BID 14 days #30 grams 08/04/23 08/26/23 Rx with perineal applicator (Anusol-HC) Patient History Social History Smoking Status: Never smoker Hx Alcohol Use: No Hx Substance Use: No Preferred Language: [place] Communication Ability: Effective Acid Purification Equipment Operator Required: No Beliefs That Will Affect Care: None Current Living Situation: Spouse Other Information That Helps Us Care for You: No Feels Safe at Home: Yes Safety Concerns: Feels Safe At This Time Assistive Devices: Cane, Oxygen - at Night and Walker Physical Exam Physical Exam: Frail-appearing elderly white female in no acute distress. Afebrile. BP 104/65 mmHg. Pulse 72 bpm and regular. Respirations 18 and unlabored. Skin: Few ecchymoses, no generalized lesions. HEENT: unremarkable. Neck: JVP does not appear elevated, no carotid bruits. Lungs: Few basilar crackles, generally clear. Cardiac: regular rhythm, audible aortic closure sound, 2/6 crescendo decrescendo systolic ejection murmur right upper sternal border, 2/6 apical holosystolic murmur rating to the axilla, no diastolic murmur. Abdomen: benign. Extremities: no edema, pulses intact. Neurologic: Subdued affect, limited insight, answers simple questions, grossly nonfocal. Results & Data Laboratory Results BNP 569 ([id number] range during prior admission). Troponin x 4 was [id number] range. Hemoglobin 10.3. Normal sodium, potassium 3.0, BUN 37, creatinine 0.86. Labs sent last admission showed low serum levels of kappa and lambda light chains and a faint IgG lambda, repeat study recommended. Emory lambda ratio was normal. Urine immunofixation showed free monoclonal kappa band. Diagnostic Findings ECG showed AV dual pacing at 70 bpm. Note change compared with prior. Chest x-ray showed significant cardiomegaly and was read as "pulmonary vascular congestion without overt pulmonary edema", to my eye she has increased central vasculature but no evidence of heart failure. Small left pleural effusion. Echocardiogram 07/31/2023 showed small LV with EF 35 to 40% due to global hypokinesis, severe LVH with type III diastolic dysfunction and evidence of RV p ressure/volume overload. Severe left and mild right atrial dilation. Mild aortic stenosis. Moderate tricuspid regurgitation with severe pulmonary hypertension. Moderate pericardial effusion without evidence of tamponade. PG Care Time/CCT Total # of Minutes Spent Total Time Spent with Patient: Total time spent is greater than 50% in coordination of care (as documented) at patient's floor/unit and/or counseling patient: Coding Level of Care Code 53774 IN/OBS CONSULT LVL 5,80M Diagnoses Cardiac amyloidosis E85.4; I43 Physical deconditioning R53.81 Chronic HFrEF (heart failure with reduced ejection fraction) I50.22 Pericardial effusion I31.39 Paroxysmal atrial fibrillation I48.0 Pacemaker Z95.0
--- NOTE | 2023-08-27 14:08 | Hospitalist Progress Note ---
Date of Service August 27, 2023 Assessment & Plan (1) Generalized weakness: Plan: Admit to [facility] telemetry pulse oximetry Currently stable but with ongoing clinical decline since last admission No recent falls but has required increased assistance with ambulation per She appears frail on exam, they report poor oral intake recently PT/OT consulted If prognosis is poor patient would likely benefit from palliative medicine consult prior to discharge. However palliative care is not available this week. Dietitian consult has been placed to assist with nutritional assessment as the patient is clinically malnourished Fall/aspiration precautions Home Eliquis for DVT prophylaxis Heart healthy/DM type II diet with 1800 mL fluid restriction AM CBC, CMP, mag, PT/INR (2) Elevated troponin: Plan: Suspect this is due to ongoing demand from cardiac amyloidosis Cardiology did not recommend any further testing or intervention (3) Cardiac amyloidosis: Plan: Workup for cardiac amyloidosis was initially started at the beginning of this month during the patient's last admission from 07/31/2023 - 08/04/2023. Patient's explains that she was sent over from her [facility] cardiology appointment due to concerns for her workup being significant for cardiac amyloidosis and her ongoing clinical decline The rest of her workup will likely need to be continued outpatient as we do not have access to cardiac MRI here Cardiology service involved. Because of her functional status, generalized frailty and advanced age, even if cardiac amyloidosis is confirmed, she may not be a candidate for treatment options. Continue to monitor on telemetry at this time (4) SOB (shortness of breath): Plan: Patient has noted ongoing shortness of breath along with her other complaints today Was discharged on as needed O2 after last discharge, currently stable on 2 L nasal cannula Chest x-ray appears stable compared to last hospitalization, no reported consolidations Suspect a large component of her subjective shortness of breath is a component of her cardiac amyloidosis, CHF, severe pulmonary hypertension, and deconditioning from recent admission Continue supportive care at this time with incentive spirometry, flutter therapy, as needed O2 to keep SpO2 at or above 92% (5) Acute HFrEF (heart failure with reduced ejection fraction): Plan: Patient examines euvolemic to slightly dehydrated on exam Patient's explains that her swelling has been much improved since last admission, has been compliant with daily Lasix Chest x-ray was read as stable compared to discharge Patient was given an additional 40 mg IV Lasix in the ED prior to admission, will hold additional IV diuretics at this time Will hold p.o. Lasix at this time. Consider resuming p.o. Lasix if she starts gaining weight or showing signs of hypervolemia. Monitor intake output every shift, daily weights Given her low normal blood pressure, she would not tolerate any VERENICE inhibitor, Entresto, ARB. And if she has amyloid, these conventional agents would be contraindicated. (6) Paroxysmal atrial fibrillation: Plan: Currently in paced rhythm Continue Eliquis Currently not on rate or rhythm medications, continue to monitor for now (7) DM type 2 (diabetes mellitus, type 2): Plan: Patient is not on any medications at baseline She requested that the fingersticks be discontinued. Plan I spoke to her about her CODE STATUS. She clearly stated that she wanted to be DNR/DNI. In the next few days and in the absence of palliative care service, I will be talking to her about goals of care Admission and Anticipated Discharge Date Admission Date: August 26, 2023 Subjective Patient says that she is very tired overall. Review of Systems Review of Systems: All systems reviewed & are unremarkable except as noted in Subjective Physical Exam Physical Exam: General: Awake, conversant. Tired appearing. Cachectic with bitemporal and intercostal muscle wasting Heart: S1, S2/regular rate and rhythm, no murmur rubs or gallops Lungs: Clear to auscultation bilaterally. Normal effort Abdomen: Soft/nontender/nondistended. No hepatosplenomegaly Extremities: No clubbing/cyanosis. No edema Behavior: Appropriate, cooperative Results & Data Results & Data Vital Signs (Past 12 Hours) Vital Signs Temp Pulse Pulse Resp BP Pulse Ox O2 Del Method 08/27/23 11:22 36.4 C L 73 18 104/65 98 Nasal Cannula 08/27/23 10:55 Room Air 08/27/23 07:56 36.4 C L 71 20 117/74 99 Nasal Cannula 08/27/23 05:58 72 08/27/23 04:14 36.3 C L 72 16 110/65 98 Nasal Cannula O2 Flow Rate 08/27/23 11:22 1 08/27/23 10:55 08/27/23 07:56 1 08/27/23 05:58 08/27/23 04:14 1 Laboratory Results Abnormal lab results 08/26/23 08/26/2324 Range/Units 15:57 15:59 18:48 RBC 3.09 L (4.20-5.40) M/uL Hgb 10.4 L (12.0-16.0) g/dl POC Hgb 10.2 L (12.0-16.0) g/dl Hct 31.9 L (37.0-47.0) % POC Hct 30 L (37-47) % MCV 103.2 H (80.0-100.0) fL RDW Std Deviation 56.6 H (36.4-46.3) fL RDW Coeff of Lorene 14.8 H (11.5-14.5) % MPV 9.3 L (9.4-12.4) fL PT 13.3 H (9.0-12.0) Seconds INR 1.2 H (0.9-1.1) Potassium (3.5-5.1) mmol/L POC BUN 34 H (7-18) mg/dl BUN 41 H (6-23) mg/dl BUN/Creatinine Ratio 47.7 H (10-20) Glucose 150 H (70-99(Fasting)) mg/dl POC Glucose (other) 143 H (70-99) mg/dl Troponin I High Sens 109.0 H* 109.8 H* (0-14) pg/ml B-Natriuretic Peptide 569 H (0-100) pg/ml 08/27/23 08/27/23 08/27/23 Range/Units 00:53 05:45 11:38 RBC 3.08 L (4.20-5.40) M/uL Hgb 10.3 L (12.0-16.0) g/dl POC Hgb (12.0-16.0) g/dl Hct 31.8 L (37.0-47.0) % POC Hct (37-47) % MCV 103.2 H (80.0-100.0) fL RDW Std Deviation 54.5 H (36.4-46.3) fL RDW Coeff of Lorene (11.5-14.5) % MPV 9.2 L (9.4-12.4) fL PT 13.5 H (9.0-12.0) Seconds INR 1.3 H (0.9-1.1) Potassium 3.0 L (3.5-5.1) mmol/L POC BUN (7-18) mg/dl BUN 37 H (6-23) mg/dl BUN/Creatinine Ratio 43.0 H (10-20) Glucose 120 H (70-99(Fasting)) mg/dl POC Glucose (other) (70-99) mg/dl Troponin I High Sens 115.1 H* 111.7 H* 106.6 H* (0-14) pg/ml B-Natriuretic Peptide (0-100) pg/ml Diagnostic Findings Chest X-Ray 08/26/23 15:45 XR chest 1V portable CLINICAL HISTORY: Sepsis. COMPARISON STUDY: Chest radiograph August 03, 2023. FINDINGS: To a left subclavian pacer is unchanged in position. Moderate cardiomegaly is again noted. There is pulmonary vascular congestion without overt pulmonary edema. This is unchanged. Suspected small left pleural effusion. No consolidation is identified to suggest pneumonia. IMPRESSION: No change in appearance of the chest. Cardiomegaly with pulmonary vascular congestion and a suspected small left pleural effusion. ACT 112: Negative or not required by law. Electronically signed by: Ismael Morgan M.D. 08/26/2023 4:10 PM PG Care Time/CCT Total # of Minutes Spent Total Time Spent with Patient: Total time spent is greater than 50% in coordination of care (as documented) at patient's floor/unit and/or counseling patient: Coding Level of Care Code 47982 SUB INP/OBS CARE 2/35MIN Diagnoses Generalized weakness R53.1 Elevated troponin R79.89 Cardiac amyloidosis E85.4; I43 SOB (shortness of breath) R06.02 Acute HFrEF (heart failure with reduced ejection fraction) I50.21 Paroxysmal atrial fibrillation I48.0 DM type 2 (diabetes mellitus, type 2) E11.9
[2023-08-28] MEDS: PROCHLORPERAZINE 5 MG in SYRINGE 4 ML IV ONE (03:03)
[2023-08-28 06:34] LABS: Basophils # (auto) 0.03 K/uL (0.00-0.20); Basophils % (auto) 0.5 %; Eosinophils # (auto) 0.09 K/uL (0.00-0.50); Eosinophils % (auto) 1.5 %; Hematocrit (blood only) 33.1 % (37.0-47.0); Hemoglobin 10.8 g/dl (12.0-16.0); Immature Granulocytes # (auto) 0.01 K/uL (0.01-0.20); Immature Granulocytes % (auto) 0.2 %; Lymphocytes # (auto) 2.28 K/uL (1.20-3.40); Mean Corpuscular Hemoglobin 33.2 pg (25.0-34.0); Mean Corpuscular Hgb Conc 32.6 g/dL (32.0-36.0); Mean Corpuscular Volume 101.8 fL (80.0-100.0); Mean Platelet Volume 9.3 fL (9.4-12.4); Monocytes # (auto) 0.32 K/uL (0.11-0.59); Monocytes % (auto) 5.2 %; Neutrophils # (auto) 3.43 K/uL (1.40-6.50); Neutrophils % (auto) 55.6 %; Platelet Count 223 K/uL (130-400); RDW Standard Deviation 52.7 fL (36.4-46.3); Red Blood Count 3.25 M/uL (4.20-5.40); White Blood Count 6.16 K/ul (4.8-10.8)
[2023-08-28 07:07] LABS: INR 1.2 (0.9-1.1); Prothrombin Time 13.3 Seconds (9.0-12.0)
[2023-08-28 07:12] LABS: Albumin Globulin Ratio 1.3 (0.9-2); Albumin Level 3.4 gm/dl (3.4-5.0); BUN Creatinine Ratio 39.3 (10-20); Bilirubin,Total 0.9 mg/dl (0.2-1.0); Calcium 9.8 mg/dl (8.6-10.3); Creatinine Clr Calc Pharmacy 32.3 ml/min; Est GFR (African American) 68.5 ml/min; Est GFR (Non-African American) 59.1 ml/min; Globulin 2.6 gm/dl (2.5-4.0); Magnesium 2.1 mg/dl (1.7-2.4); Potassium 3.8 mmol/L (3.5-5.1)
--- NOTE | 2023-08-28 09:41 | Cardiology Progress Note ---
Date of Service August 28, 2023 Assessment & Plan (1) Cardiomyopathy: (2) Pulmonary hypertension: (3) Paroxysmal atrial fibrillation: (4) Tachy-fermín syndrome: (5) Elevated troponin: (6) Pacemaker: (7) Aortic stenosis: (8) Pericardial effusion: (9) Chronic HFrEF (heart failure with reduced ejection fraction): Plan ASSESSMENT/PLAN: 1. Chronic heart failure with reduced EF: She appears euvolemic to mildly hypovolemic. NYHA class IV. Concern for amyloidosis based on echo images. Urine immunofixation with free monoclonal kappa band. Further outpatient imaging was to be done in the outpatient setting with her [facility] dispenser operator. Unclear if this was done. Patient does not recall. Can continue current diuretic. 2. Cardiomyopathy: Significant left ventricular hypertrophy with speckled appearance on echo, concerning for amyloidosis (also with aortic stenosis and pericardial effusion). Urine immunofixation with free monoclonal kappa band. 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 Outpatient echo with outside facility reports normal LV systolic function but echo done here earlier this month personally reviewed again and LV systolic function was moderately reduced. Could consider repeating limited study but was informed by primary hospitalist service that she is choosing comfort care and therefore will not repeat echo. Not a candidate for ICD for primary prevention. 3. Pericardial effusion: Seems to be chronic over the past several months. No suggestion of cardiac tamponade currently. 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 4. Paroxysmal atrial fibrillation:Atrial fibrillation was reportedly difficult to control during her [place] hospitalization in 2023. Sotalol discontinued earlier this month given cardiomyopathy and concern for amyloidosis. Atrial paced here. Has been on anticoagulation for stroke risk reduction. 5. Tachybradycardia syndrome s/p dual-chamber pacemaker: Has been referred by her [facility] dispenser operator to [facility] dredge worker, Dr. Kuhn, to manage her pacemaker. 6. Elevated troponin: High-sensitivity troponin minimally elevated. She did not present with acute coronary syndrome. No further workup necessary as she is now comfort care. 7. Aortic stenosis: Nonsevere. 8. Mildly dilated thoracic ascending aorta: Avoid strenuous lifting for which the Valsalva maneuver is required. Prior to comfort care had recommended annual surveillance. 9. Disposition: She appears very debilitated, even since her recent hospitalization here earlier this month. Poor prognosis. Have been informed by hospitalist, Dr. Adorno, that she has opted for comfort care. Cardiology will sign off at this time. Please call with any further questions or concerns. Admission and Anticipated Discharge Date Admission Date: August 26, 2023 Subjective Patient seen this morning. She has shortness of breath. She is very tired. She quickly would doze off to sleep. She denied chest pain or any other pain. She denied palpitations. She was alone in her hospital room. Physical Exam Physical Exam: Gen.: No acute distress. Somnolent but arouses to verbal stimuli and would answer questions. HEENT: Anicteric sclera. Neck: No JVD appreciated. Cardiac: No ventricular heave. Regular. Normal S1-S2. 2/6 systolic murmur. Pulmonary: Decreased breath sounds, but otherwise clear to auscultation bilaterally. Abdomen: Soft, nontender, nondistended, with normoactive bowel sounds. No bruits noted. Extremities: 2+ radial pulses bilaterally. 2+ posterior tibialis pulses bilaterally. No significant edema. No cyanosis. Results & Data Vital Signs (Past 12 Hours) Vital Signs Temp Pulse Pulse Resp BP BP Pulse Ox 08/28/23 07:36 36.5 C 71 20 103/64 96 08/28/23 07:00 80 08/28/23 02:44 36.4 C L 70 16 112/72 95 08/27/23 22:18 36.4 C L 73 16 106/68 94 08/27/23 21:54 72 O2 Del Method 08/28/23 07:36 Room Air 08/28/23 07:00 08/28/23 02:44 Room Air 08/27/23 22:18 Room Air 08/27/23 21:54 Intake & Output 08/26/23 08/27/23 08/28/23 08/29/23 06:59 06:59 06:59 06:59 Intake Total 140 / 140 760 / 760 120 / 120 Output Total 3 / 3 801 / 801 Balance 137 / 137 -41 / -41 119 / 119 Weight 100 lb 15.547 oz 97 lb 10.636 oz Laboratory Results Laboratory Results - last 24 hr 08/27/23 08/28/23 11:38 06:08 WBC 6.16 RBC 3.25 L Hgb 10.8 L Hct 33.1 L MCV 101.8 H MCH 33.2 MCHC 32.6 RDW Std Deviation 52.7 H RDW Coeff of Lorene 14.0 Plt Count 223 MPV 9.3 L Immature Gran % (Auto) 0.2 Neut % (Auto) 55.6 Lymph % (Auto) 37.0 [place] % (Auto) 5.2 Eos % (Auto) 1.5 Baso % (Auto) 0.5 Neut # (Auto) 3.43 Lymph # (Auto) 2.28 [place] # (Auto) 0.32 Eos # (Auto) 0.09 Baso # (Auto) 0.03 Immature Gran # (Auto) 0.01 PT 13.3 H INR 1.2 H Sodium 140 Potassium 3.8 D Chloride 103 Carbon Dioxide 29 Anion Gap 8 BUN 35 H Creatinine 0.89 Est Cr Clr Drug Dosing 32.3 Est GFR ( Amer) 68.5 Est GFR (Non-Af Amer) 59.1 BUN/Creatinine Ratio 39.3 H Glucose 113 H Calcium 9.8 Magnesium 2.1 Total Bilirubin 0.9 AST 19 ALT 15 Alkaline Phosphatase 91 Troponin I High Sens 106.6 H* Total Protein 6.0 Albumin 3.4 Globulin 2.6 Albumin/Globulin Ratio 1.3 Diagnostic Findings Labs reviewed from 08/28/2023: Chronic and stable anemia, normal transaminase levels, normal magnesium, stable renal function, normal potassium. ECG personally reviewed from 08/26/2023: AV paced 70 bpm. Chart reviewed. Echo from 08/23/2023 (outside hospital): EF reported as 55 to 60%. Severe concentric LVH. Severe biatrial dilation. Mild MR. Medications Administered Current Inpatient Medications Albuterol (Albuterol Hfa 8 Gm Inhaler) 2 puffs INH Q6R PRN PRN Reason: SOB/Wheezing Stop: 09/25/23 21:10 Apixaban (Apixaban 2.5 Mg Tab) 2.5 mg PO BID DWAIN Stop: 09/25/23 21:59 Last Admin: 08/28/23 09:08 Dose: 2.5 mg Atorvastatin Calcium (Atorvastatin 10 Mg Tab) 10 mg PO DAILY DWAIN Stop: 09/26/23 08:59 Last Admin: 08/28/23 09:07 Dose: 10 mg Buspirone HCl (Buspirone 5 Mg Tab) 5 mg PO BID DWAIN Stop: 09/25/23 21:59 Last Admin: 08/28/23 09:07 Dose: 5 mg Pantoprazole Sodium (Pantoprazole 40 Mg Tab) 40 mg PO DAILY DWAIN Stop: 09/26/23 08:59 Last Admin: 08/28/23 09:07 Dose: 40 mg PG Care Time/CCT Total # of Minutes Spent Total Time Spent with Patient: Total time spent is greater than 50% in coordination of care (as documented) at patient's floor/unit and/or counseling patient: Coding Level of Care Code 04323 SUB INP/OBS CARE 3/50MIN Diagnoses Cardiomyopathy I42.9 Pulmonary hypertension I27.20 Paroxysmal atrial fibrillation I48.0 Tachy-fermín syndrome I49.5 Elevated troponin R79.89 Pacemaker Z95.0 Aortic stenosis I35.0 Pericardial effusion I31.39 Chronic HFrEF (heart failure with reduced ejection fraction) I50.22
[2023-08-28] MEDS ORDERED: LORazepam 0.5 MG TAB PO PRN (11:14)
[2023-08-28] MEDS ORDERED: ACETAMINOPHEN 325 MG TAB PO PRN (11:14)
[2023-08-28] MEDS ORDERED: ONDANSETRON 4 MG OD TAB SL PRN (11:14)
[2023-08-28] MEDS ORDERED: GLYCOPYRROLATE 0.2 MG/ML VIAL IV PRN (11:14)
--- NOTE | 2023-08-28 11:30 | Hospitalist Progress Note ---
Date of Service August 28, 2023 Assessment & Plan (1) Generalized weakness: Plan: Currently stable but with ongoing clinical decline since last admission No recent falls but has required increased assistance with ambulation per She appears frail on exam, they report poor oral intake recently PT/OT consulted Patient expressed to Occupational Therapy on 08/26 that she would want to "take a pill and end it all". I had a discussion with her today and she chooses comfort care. She does not want aggressive treatments. Initiated comfort care. She may still need placement as I am not sure if the will be able to take care of her at home. Case management involved. (2) Elevated troponin: Plan: Suspect this is due to ongoing demand from cardiac amyloidosis Cardiology did not recommend any further testing or intervention No comfort care (3) Cardiac amyloidosis: Plan: Workup for cardiac amyloidosis was initially started at the beginning of this month during the patient's last admission from 07/31/2023 - 08/04/2023. Patient's explains that she was sent over from her [facility] cardiology appointment due to concerns for her workup being significant for cardiac amyloidosis and her ongoing clinical decline The rest of her workup was going to be continued outpatient as we do not have access to cardiac MRI here Cardiology service involved. Because of her functional status, generalized frailty and advanced age, even if cardiac amyloidosis is confirmed, she may not be a candidate for treatment options. The patient tells me today that she is tired of suffering and that she would want to switch goals of care to comfort care only. Comfort care initiated. Discontinue monitor Start Ativan and morphine for comfort care Cardiology service informed of her decision. (4) SOB (shortness of breath): Plan: Patient has noted ongoing shortness of breath along with her other complaints today Was discharged on as needed O2 after last discharge, currently stable on 2 L nasal cannula Chest x-ray appears stable compared to last hospitalization, no reported consolidations Suspect a large component of her subjective shortness of breath is a component of her cardiac amyloidosis, CHF, severe pulmonary hypertension, and deconditioning from recent admission Patient chose comfort care today 08/27 in presence of nurse Carrie Will treat her with morphine and Ativan (5) Acute HFrEF (heart failure with reduced ejection fraction): Plan: Patient examines euvolemic to slightly dehydrated on exam Patient's explains that her swelling has been much improved since last admission, has been compliant with daily Lasix Chest x-ray was read as stable compared to discharge Will hold p.o. Lasix at this time. Consider resuming p.o. Lasix if she starts gaining weight or showing signs of hypervolemia. Given her low normal blood pressure, she would not tolerate any VERENICE inhibitor, Entresto, ARB. And if she has amyloid, these conventional agents would be contraindicated. Patient chose comfort care 08/27 (6) Paroxysmal atrial fibrillation: Plan: Currently in paced rhythm Continue Eliquis Currently not on rate or rhythm medications, continue to monitor for now (7) DM type 2 (diabetes mellitus, type 2): Plan: Patient is not on any medications at baseline She requested that the fingersticks be discontinued. Plan Comfort care has been decided on by the patient 08/27. I will talk to the soon to inform him of her decision. Transfer to [facility] unit. Insert Medley catheter for comfort reasons. Admission and Anticipated Discharge Date Admission Date: August 26, 2023 Subjective Occupational Therapy note from 08/26 mentioned that the patient wanted "a pill to end it all". She was "tired of suffering". I brought it up today. The patient expressed to me again that she is tired of suffering and that she wishes comfort care only. She does not want aggressive treatments. She understands that her condition may not be curable. This conversation was held in presence of nurse Carrie Barnard. The was not in the room. Review of Systems Review of Systems: All systems reviewed & are unremarkable except as noted in Subjective Physical Exam Physical Exam: General: Awake, conversant. Tired appearing. Cachectic with bitemporal and intercostal muscle wasting Heart: S1, S2/regular rate and rhythm, no murmur rubs or gallops Lungs: Clear to auscultation bilaterally. Normal effort Abdomen: Soft/nontender/nondistended. No hepatosplenomegaly Extremities: No clubbing/cyanosis. No edema Behavior: Appropriate, cooperative Results & Data Results & Data Vital Signs (Past 12 Hours) Vital Signs Temp Pulse Pulse Resp BP BP Pulse Ox 08/28/23 09:10 08/28/23 07:36 36.5 C 71 20 103/64 96 08/28/23 07:00 80 08/28/23 02:44 36.4 C L 70 16 112/72 95 O2 Del Method 08/28/23 09:10 Room Air 08/28/23 07:36 Room Air 08/28/23 07:00 08/28/23 02:44 Room Air Laboratory Results Abnormal lab results 08/27/23 08/28/23 Range/Units 11:38 06:08 RBC 3.25 L (4.20-5.40) M/uL Hgb 10.8 L (12.0-16.0) g/dl Hct 33.1 L (37.0-47.0) % MCV 101.8 H (80.0-100.0) fL RDW Std Deviation 52.7 H (36.4-46.3) fL MPV 9.3 L (9.4-12.4) fL PT 13.3 H (9.0-12.0) Seconds INR 1.2 H (0.9-1.1) BUN 35 H (6-23) mg/dl BUN/Creatinine Ratio 39.3 H (10-20) Glucose 113 H (70-99(Fasting)) mg/dl Troponin I High Sens 106.6 H* (0-14) pg/ml PG Care Time/CCT Total # of Minutes Spent Total Time Spent with Patient: Total time spent is greater than 50% in coordination of care (as documented) at patient's floor/unit and/or counseling patient: Coding Level of Care Code 84668 SUB INP/OBS CARE 2/35MIN Diagnoses Generalized weakness R53.1 Elevated troponin R79.89 Cardiac amyloidosis E85.4; I43 SOB (shortness of breath) R06.02 Acute HFrEF (heart failure with reduced ejection fraction) I50.21 Paroxysmal atrial fibrillation I48.0 DM type 2 (diabetes mellitus, type 2) E11.9
[2023-08-28] MEDS: MoRPHine SULFATE 10 MG/0.5 ML UDP PO PRN (22:33)
[2023-08-29] MEDS: MoRPHine SULFATE 2 MG/ML CARP IV PRN (09:35)
--- NOTE | 2023-08-29 10:11 | Hospitalist Progress Note ---
Date of Service August 29, 2023 Assessment & Plan (1) Generalized weakness: Plan: Currently stable but with ongoing clinical decline since last admission No recent falls but has required increased assistance with ambulation per She appears frail on exam, they report poor oral intake recently PT/OT consulted Patient expressed to Occupational Therapy on 08/26 that she would want to "take a pill and end it all". I had a discussion with her 08/27 and she chooses comfort care. She does not want aggressive treatments. Initiated comfort care. Palliative care consulted She may still need placement as I am not sure if the will be able to t brandin care of her at home. Case management involved. (2) Abdominal pain: Plan: Patient started complaining of abdominal pain. She is moaning in pain I ordered IV morphine and IV Zofran as she was also nauseated Her belly seems to be distended. I hear good bowel sounds. I ordered an x-ray KUB to see if she needs an NG tube placed. Since she is comfort care, we will treat her conservatively and supportively for the most part. But if she has an ileus or an obstruction, we may have to address that. (3) Elevated troponin: Plan: Suspect this is due to ongoing demand from cardiac amyloidosis Cardiology did not recommend any further testing or intervention No comfort care (4) Cardiac amyloidosis: Plan: Workup for cardiac amyloidosis was initially started at the beginning of this month during the patient's last admission from 07/31/2023 - 08/04/2023. Patient's explains that she was sent over from her [facility] cardiology appointment due to concerns for her workup being significant for cardiac amyloidosis and her ongoing clinical decline The rest of her workup was going to be continued outpatient as we do not have access to cardiac MRI here Cardiology service involved. Because of her functional status, generalized frailty and advanced age, even if cardiac amyloidosis is confirmed, she may not be a candidate for treatment options. The patient tells me today that she is tired of suffering and that she would want to switch goals of care to comfort care only. Comfort care initiated. Discontinue monitor Start Ativan and morphine for comfort care Cardiology service informed of her decision. (5) SOB (shortness of breath): Plan: Patient has noted ongoing shortness of breath along with her other complaints today Was discharged on as needed O2 after last discharge, currently stable on 2 L nasal cannula Chest x-ray appears stable compared to last hospitalization, no reported con solidations Suspect a large component of her subjective shortness of breath is a component of her cardiac amyloidosis, CHF, severe pulmonary hypertension, and deconditioning from recent admission Patient chose comfort care today 08/27 in presence of nurse Carrie Will treat her with morphine and Ativan (6) Acute HFrEF (heart failure with reduced ejection fraction): Plan: Patient examines euvolemic to slightly dehydrated on exam Patient's explains that her swelling has been much improved since last admission, has been compliant with daily Lasix Chest x-ray was read as stable compared to discharge Will hold p.o. Lasix at this time. Consider resuming p.o. Lasix if she starts gaining weight or showing signs of hypervolemia. Given her low normal blood pressure, she would not tolerate any VERENICE inhibitor, Entresto, ARB. And if she has amyloid, these conventional agents would be contraindicated. Patient chose comfort care 08/27 (7) Paroxysmal atrial fibrillation: Plan: Currently in paced rhythm Discontinue Eliquis as her urine in the Medley catheter appears bloody Currently not on rate or rhythm medications, continue to monitor for now (8) DM type 2 (diabetes mellitus, type 2): Plan: Patient is not on any medications at baseline She requested that the fingersticks be discontinued. Plan Comfort care has been decided on by the patient 08/27. Spoke to the family who agrees. Today patient is complaining of abdominal pain and is moaning in pain. Treating her pain more aggressively with IV morphine. Ordered an abdominal x- ray to see if this is something that can be treated with a quick fix like an NG tube. Discontinued medications like statin that have no role in the comfort care goal Admission and Anticipated Discharge Date Admission Date: August 26, 2023 Subjective Noted the patient was moaning in pain. The pain is in her abdomen. It appears to be slightly distended. She was given Roxanol by mouth half hour ago and she still rates the pain at 9/10 in intensity. I ordered IV morphine. She was also nauseous. Ordered Zofran IV. I also ordered an x-ray KUB. Review of Systems Review of Systems: All systems reviewed & are unremarkable except as noted in Subjective Physical Exam Physical Exam: General: Moaning in pain. Cachectic with bitemporal and intercostal muscle wasting Heart: S1, S2/regular rate and rhythm, no murmur rubs or gallops Lungs: Clear to auscultation bilaterally. Normal effort Abdomen: Tenderness to palpation with no rebound, rigidity or guarding. Abdomen appears distended. No hepatosplenomegaly Extremities: No clubbing/cyanosis. No edema Behavior: Appropriate, cooperative Results & Data Results & Data Vital Signs (Past 12 Hours) Vital Signs O2 Del Method O2 Flow Rate 08/29/23 08:13 Nasal Cannula 1.5 PG Care Time/CCT Total # of Minutes Spent Total Time Spent with Patient: Total time spent is greater than 50% in coordination of care (as documented) at patient's floor/unit and/or counseling patient: Coding Level of Care Code 07683 SUB INP/OBS CARE 2/35MIN Diagnoses Generalized weakness R53.1 Abdominal pain R10.9 Elevated troponin R79.89 Cardiac amyloidosis E85.4; I43 SOB (shortness of breath) R06.02 Acute HFrEF (heart failure with reduced ejection fraction) I50.21 Paroxysmal atrial fibrillation I48.0 DM type 2 (diabetes mellitus, type 2) E11.9
--- NOTE | 2023-08-29 10:36 | XRay Report ---
KUB CLINICAL HISTORY: abd bloated, nausea COMPARISON STUDY: KUB July 31, 2023. FINDINGS: Pacer leads are partially imaged. Cardiomegaly is incidentally noted. A prominent gas-fille d loop of bowel within the right lower quadrant likely reflects colonic gas. The amount of stool is w ithin normal limits. No renal calculi are identified. IMPRESSION: Prominent gas-filled loop of bowel within the right lower quadrant which likely reflects gas within the cecum. No definite radiographic evidence for a bowel obstruction. If persistent sympt oms, a CT could be obtained. ACT 112: Negative or not required by law. Electronically signed by: Ismael Morgan M.D. 08/29/2023 10:34 AM
[2023-08-29] MEDS: ONDANSETRON INJ 2 MG/ML 2 ML VIAL IV PRN (18:47)
[2023-08-30] MEDS ORDERED: LORazepam 0.5 MG in SYRINGE 0.125 ML IV PRN (13:53)
[2023-08-30] MEDS ORDERED: MoRPHine SULFATE 10 MG/0.5 ML UDP PO PRN (13:53)
--- NOTE | 2023-08-30 16:31 | Hospitalist Progress Note ---
Date of Service August 30, 2023 Assessment & Plan (1) Generalized weakness: Plan: Currently stable but with ongoing clinical decline since last admission No recent falls but has required increased assistance with ambulation per She appears frail on exam, they report poor oral intake recently PT/OT has been consulted Patient expressed to Occupational Therapy on 08/26 that she would want to "take a pill and end it all". I had a discussion with her 08/27 and she chooses comfort care. She does not want aggressive treatments. Initiated comfort care. Palliative care consulted, awaiting evaluation She may still need placement as I am not sure if the will be able to take care of her at home. Case management involved. (2) Abdominal pain: Plan: Patient started complaining of abdominal pain on 08/29. She was moaning in pain I ordered IV morphine and IV Zofran as she was also nauseated X-ray KUB showed a prominent gas-filled loop of bowel within the right lower quadrant which likely reflects gas within the cecum. Trying to treated as conservatively as possible with IV pain medications and IV Zofran. She seems to be fairly comfortable on this regimen. Awaiting palliative care evaluation (3) Elevated troponin: Plan: Suspect this is due to ongoing demand from cardiac amyloidosis Cardiology did not recommend any further testing or intervention No comfort care (4) Cardiac amyloidosis: Plan: Workup for cardiac amyloidosis was initially started at the beginning of this month during the patient's last admission from 07/31/2023 - 08/04/2023. Patient's explains that she was sent over from her [facility] cardiology ap pointment due to concerns for her workup being significant for cardiac amyloidosis and her ongoing clinical decline The rest of her workup was going to be continued outpatient as we do not have access to cardiac MRI here Cardiology service involved. Because of her functional status, generalized frailty and advanced age, even if cardiac amyloidosis is confirmed, she may not be a candidate for treatment options. The patient tells me today that she is tired of suffering and that she would want to switch goals of care to comfort care only. Comfort care initiated. Discontinue monitor Start Ativan and morphine for comfort care Cardiology service informed of her decision. (5) SOB (shortness of breath): Plan: Patient has noted ongoing shortness of breath along with her other complaints today Was discharged on as needed O2 after last discharge, currently stable on 2 L nasal cannula Chest x-ray appears stable compared to last hospitalization, no reported consolidations Suspect a large component of her subjective shortness of breath is a component of her cardiac amyloidosis, CHF, severe pulmonary hypertension, and deconditioning from recent admission Patient chose comfort care today 08/27 in presence of nurse Carrie Will treat her with morphine and Ativan (6) Acute HFrEF (heart failure with reduced ejection fraction): Plan: Patient examines euvolemic to slightly dehydrated on exam Patient's explains that her swelling has been much improved since last admission, has been compliant with daily Lasix Chest x-ray was read as stable compared to discharge Will hold p.o. Lasix at this time. Consider resuming p.o. Lasix if she starts gaining weight or showing signs of hypervolemia. Given her low normal blood pressure, she would not tolerate any VERENICE inhibitor, Entresto, ARB. And if she has amyloid, these conventional agents would be contraindicated. Patient chose comfort care 08/27 (7) Paroxysmal atrial fibrillation: Plan: Currently in paced rhythm Discontinue Eliquis as her urine in the Medley catheter appears bloody Currently not on rate or rhythm medications, continue to monitor for now (8) DM type 2 (diabetes mellitus, type 2): Plan: Patient is not on any medications at baseline She requested that the fingersticks be discontinued. Plan Comfort care has been decided on by the patient 08/27. Spoke to the family who agrees. Abdominal pain that newly started on 08/28 seems to be fairly controlled with pain control. Admission and Anticipated Discharge Date Admission Date: August 26, 2023 Subjective Patient is awake and appears to be comfortable. She is still able to communicate with family and express her needs. She is not moaning today. Does not appear to be in pain. Review of Systems Review of Systems: All systems reviewed & are unremarkable except as noted in Subjective Physical Exam Physical Exam: General: Patient does not appear to be in pain today. She is awake and able to make her wishes known. Cachectic with bitemporal and intercostal muscle wasting Family at the bedside. Results & Data Results & Data Vital Signs (Past 12 Hours) Vital Signs O2 Del Method O2 Flow Rate 08/30/23 09:00 Nasal Cannula 1.5 PG Care Time/CCT Total # of Minutes Spent Total Time Spent with Patient: Total time spent is greater than 50% in coordination of care (as documented) at patient's floor/unit and/or counseling patient: Coding Level of Care Code 21940 SUB INP/OBS CARE 2MIN Diagnoses Generalized weakness R53.1 Abdominal pain R10.9 Elevated troponin R79.89 Cardiac amyloidosis E85.4; I43 SOB (shortness of breath) R06.02 Acute HFrEF (heart failure with reduced ejection fraction) I50.21 Paroxysmal atrial fibrillation I48.0 DM type 2 (diabetes mellitus, type 2) E11.9
[2023-08-30] MEDS: GLYCOPYRROLATE 0.2 MG/ML VIAL IV PRN (18:26)
[2023-08-30] MEDS: bisacodyL 10 MG SUPP PR PRN (18:26)
[2023-08-30] MEDS: MoRPHine SULFATE 2 MG/ML CARP IV PRN (18:26)
--- NOTE | 2023-08-31 06:53 | Death Pronouncement Note ---
Date of Service August 31, 2023 Pronouncement Note Admission Date Admission Date: August 26, 2023 Contributing Factors (1) Generalized weakness: (2) Abdominal pain: (3) Elevated troponin: (4) Cardiac amyloidosis: (5) SOB (shortness of breath): (6) Acute HFrEF (heart failure with reduced ejection fraction): (7) Paroxysmal atrial fibrillation: (8) DM type 2 (diabetes mellitus, type 2): Summary Additional details: I was called to pronounce the of Ekaterina Lanier :[id number] by nursing on 08/31/2023 ~6:40AM. Upon entering the room, the patient was found to be in a terminal state. Patient was unresponsive to verbal and tactile stimuli. Patient unresponsive to corneal and pupillary reflexes. On cardiopulmonary exam, no carotid or radial pulses found and pt without spontaneous heart tones or respirations. Time of was pronounced by me on 08/31/2023 at 06:48. Attending physician was notified. Next of kin was notified by nursing. Additional Data Attending physician: Terrance Adorno MD Resident Activity Tracking Resident Involvement: Resident Care Provided Care Provided: Adult [facility] Medicine
--- NOTE | 2023-08-31 07:46 | Discharge Summary ---
Date of Service August 31, 2023 Admission HPI Per Admitting Provider Ekaterina is an 83-year-old female with a past medical history significant for heart failure with reduced EF, cardiomyopathy, tachybradycardia syndrome status post pacemaker placement, paroxysmal atrial fibrillation (on Eliquis), severe pulmonary hypertension, chronic hypoxic respiratory failure, anemia, CKD, acquired lymphedema, DM type II, who presented to the [facility] ED via EMS from her PCPs office due to concerns for progressive generalized weakness, poor oral intake, weight loss, and increased shortness of breath since her discharge from [facility] on 08/04/2023. On arrival to the ED she was initially noted to be tachypneic with respirations of 29 but was noted to be stable on 2 L nasal cannula and otherwise stable. Labs were significant for a slightly improved anemia compared to last admission, INR 1.2, VBG within normal limits, initial high-sensitivity troponin of 109, BNP of 569 (down from 1285 as of 07/31/2023), and negative for respiratory BioFire. Chest x-ray was read as no change in appearance of the chest. Cardiomegaly with pulmonary vascular congestion and a suspected small left pleural effusion. EKG showed an AV dual paced rhythm without acute changes compared to last admission. Prior to admission the patient was given 40 mg IV Lasix. Patient was lying in bed in no acute distress at the time of the exam with her bedside, history was mainly obtained from the patient's as she is currently weak/tired. Her explains that they were at the patient's cardiology appointment ([facility] cardiology in [place]) for follow-up after her last admission to our facility at the beginning of this month. Unfortunately they were told that the amyloidosis workup which had been started at our facility is highly concerning for cardiac amyloidosis. Since discharge from our facility the patient has had a progressive clinical decline. Her appetite has been poor, she is requiring more assistance for her ADLs, but they deny recent falls. No recent fevers, chills, chest pain, cough, abdominal Pain, nausea/vomiting, dysuria/hematuria, melena, worsening lower extremity swelling, and recent fall/trauma. Her says that the patient's legs have been much less swollen than prior to last admission, she has been compliant with her daily Lasix. I explained that the diagnosis of amyloidosis is often a difficult one as it can be difficult to treat. At this point we can bring her in for further evaluation by cardiology and likely placement at the time of discharge. I had a long discussion with them regarding goals of care, at this time they would still like the patient to be a full code, her is her POA. Please refer to Dr. Narvaez's attestation for any changes to the treatment plan Principal Diagnosis Cardiomyopathy Possible cardiac amyloidosis Chronic heart failure with reduced EF Generalized deconditioning Discharge Exam Patient Discharge Data Allergies Allergy/AdvReac Type Severity Reaction Status Date / Time bacitracin Allergy Intermediate Rash Unverified 08/26/23 17:35 [From Neosporin ([id number])] neomycin Allergy Intermediate Rash Unverified 08/26/23 17:35 [From Neosporin ([id number])] polymyxin B Allergy Intermediate Rash Unverified 08/26/23 17:35 [From Neosporin ([id number])] Consultations 08/26/23 17:45 ED Decision to Admit Stat 08/26/23 18:21 Consult Cardiology Routine 08/29/23 07:45 Consult Palliative Care Routine Hospital Course (1) Generalized weakness: No recent falls but has required increased assistance with ambulation per She appears frail on exam, they report poor oral intake recently Patient expressed to Occupational Therapy on 08/26 that she would want to "take a pill and end it all". I had a discussion with her 08/27 and she chose comfort care. Initiated comfort care soon after discussion with the patient and family. (2) Cardiac amyloidosis: Workup for cardiac amyloidosis was initially started at the beginning of this month during the patient's last admission from 07/31/2023 - 08/04/2023. Patient has significant left ventricular hypertrophy with speckled appearance on echo, concerning for amyloidosis (also with aortic stenosis and pericardial effusion) Urine immunofixation with free monoclonal kappa band Cardiac amyloidosis with strongly suspected. Patient's explains that she was sent over from her [facility] cardiology appointment due to concerns for her workup being significant for cardiac amyloidosis and her ongoing clinical decline The rest of her workup was going to be continued outpatient as we do not have access to cardiac MRI here Cardiology service involved. Because of her functional status, generalized frailty and advanced age, even if cardiac amyloidosis is confirmed, she may not be a candidate for treatment options. The patient stated that she was tired of suffering and that she would want to switch goals of care to comfort care only. Comfort care initiated. Start Ativan and morphine for comfort care Cardiology service informed of her decision. (3) Abdominal pain: Patient started complaining of abdominal pain on 08/29. She was moaning in pain I ordered IV morphine and IV Zofran as she was also nauseated X-ray KUB showed a prominent gas-filled loop of bowel within the right lower quadrant which likely reflects gas within the cecum. Tried to treated as conservatively as possible with IV pain medications and IV Zofran. She seems to be fairly comfortable on this regimen. (4) Elevated troponin: Suspect this is due to ongoing demand from cardiac amyloidosis Cardiology did not recommend any further testing or intervention Now comfort care (5) SOB (shortness of breath): Patient has noted ongoing shortness of breath along with her other complaints today Was discharged on as needed O2 after last discharge, currently stable on 2 L nasal cannula Chest x-ray appears stable compared to last hospitalization, no reported consolidations Suspect a large component of her subjective shortness of breath is a component of her cardiac amyloidosis, CHF, severe pulmonary hypertension, and deconditioning from recent admission Patient chose comfort care today 08/27 in presence of nurse Carrie Will treat her with morphine and Ativan (6) Acute HFrEF (heart failure with reduced ejection fraction): Patient examines euvolemic to slightly dehydrated on exam Patient's explains that her swelling has been much improved since last admission, has been compliant with daily Lasix Chest x-ray was read as stable compared to discharge Diuretics were held Given her low normal blood pressure, she would not tolerate any VERENICE inhibitor, Entresto, ARB. And if she has amyloid, these conventional agents would be contraindicated. Patient chose comfort care 08/27 (7) Paroxysmal atrial fibrillation: Currently in paced rhythm Discontinue Eliquis as her urine in the Medley catheter appears bloody Currently not on rate or rhythm medications, continue to monitor for now (8) DM type 2 (diabetes mellitus, type 2): Patient is not on any medications at baseline She requested that the fingersticks be discontinued. Plan Comfort care has been decided on by the patient 08/27. Spoke to the family who agreed. Patient earlier this morning Total Time Total Time Spent Total Time Spent (In Minutes): 35 Discharge Plan Discharge Items Patient Disposition: Other Date/Time: 08/31/23 06:48 Coding Level of Care Code 86115 INP/OBS DISCH >30 MIN Diagnoses Generalized weakness R53.1 Cardiac amyloidosis E85.4; I43 Abdominal pain R10.9 Elevated troponin R79.89 SOB (shortness of breath) R06.02 Acute HFrEF (heart failure with reduced ejection fraction) I50.21 Paroxysmal atrial fibrillation I48.0 DM type 2 (diabetes mellitus, type 2) E11.9
--- NOTE | 2023-09-02 06:04 | Coding Query ---
CONGESTIVE HEART FAILURE To Promote full compliance with coding requirements relating to patient care, physician participation is requested in all cases of it support manager uncertainty. Please assist us with the following questions. A diagnosis of Congestive Heart Failure is documented in the patient's medical record. To accurately code this diagnosis and to compare patient severity, we ask that you specify the type of heart failure by placing an X within the parenthesis (x). SYSTOLIC HEART FAILURE ( ) Acute ( x) Chronic ( ) Acute on Chronic ( ) Rheumatic ( ) Unknown DIASTOLIC HEART FAILURE ( ) Acute (x ) Chronic ( ) Acute on Chronic ( ) Rheumatic ( ) Unknown COMBINED SYSTOLIC AND DIASTOLIC HEART FAILURE ( ) Acute (x ) Chronic ( ) Acute on Chronic ( ) Rheumatic ( ) Unknown Was the CHF Present On Admission? Please check the appropriate box: (x ) Present on Admission ( ) Not Present On Admission ( ) Clinically undetermined Thank you Larry VILLAFUERTE
== END 2023-08-31 08:37 | disposition expired | DRG 546 ==
LOC: ED 15:33 → SUATTDRO 18:20 → EDINP 18:20 → 2N 23:56 → 3E 08-28 14:16